=== PATIENT | female | born 1935 | race Caucasian/White ===

== ENCOUNTER 2019-01-02 13:47 | Emergency (ER) | payer MEDICARE, MEDICAID ==
[~2019-01-02] VITALS: Ht 160 cm; Wt 63.0 kg
--- OUTSIDE RECORDS SUMMARY | 2019-01-02 13:52 | XMS REPORT | Continuity of Care Document ---
Author Organization Unknown Address Unknown Allergies There is no data. Medications There is no data. Problems There is no data. Procedures There is no data. Results Test Result Range LIPID PANEL - 09/02/18 10:18 CHOLESTEROL, TOTAL 134 mg/dL <200 HDL CHOLESTEROL 49 mg/dL >50 TRIGLYCERIDES 164 mg/dL <150 LDL-CHOLESTEROL 61 mg/dL (calc) NRG CHOL/HDLC RATIO 2.7 (calc) <5.0 NON HDL CHOLESTEROL 85 mg/dL (calc) <130 MICROALBUMIN/CREATININE RATIO, URINE - 09/02/18 10:18 CREATININE, RANDOM URINE 80 mg/dL 20-275 MICROALBUMIN 1.5 mg/dL See Note: MICROALBUMIN/CREATININE RATIO, RANDOM URINE 19 mcg/mg creat <30 CMP - 09/02/18 10:18 GLUCOSE 190 mg/dL 65-99 UREA NITROGEN (BUN) 18 mg/dL 7-25 CREATININE 0.82 mg/dL 0.60-0.88 eGFR NON-AFR. CYMRAES 66 mL/min/1.73m2 > OR=60 eGFR 76 mL/min/1.73m2 > OR=60 BUN/CREATININE RATIO NOT APPLICABLE (calc) 6-22 SODIUM 136 mmol/L 135-146 POTASSIUM 3.6 mmol/L 3.5-5.3 CHLORIDE 97 mmol/L 98-110 CARBON DIOXIDE 31 mmol/L 20-32 CALCIUM 10.1 mg/dL 8.6-10.4 PROTEIN, TOTAL 7.6 g/dL 6.1-8.1 ALBUMIN 4.3 g/dL 3.6-5.1 GLOBULIN 3.3 g/dL (calc) 1.9-3.7 ALBUMIN/GLOBULIN RATIO 1.3 (calc) 1.0-2.5 BILIRUBIN, TOTAL 0.7 mg/dL 0.2-1.2 ALKALINE PHOSPHATASE 66 U/L 33-130 AST 70 U/L 10-35 ALT 76 U/L 6-29 CBC - 09/02/18 10:18 WHITE BLOOD CELL COUNT 6.6 Thousand/uL 3.8-10.8 RED BLOOD CELL COUNT 4.57 Million/uL 3.80-5.10 HEMOGLOBIN 13.9 g/dL 11.7-15.5 HEMATOCRIT 41.6 % 35.0-45.0 MCV 91.0 fL 80.0-100.0 MCH 30.4 pg 27.0-33.0 MCHC 33.4 g/dL 32.0-36.0 RDW 12.8 % 11.0-15.0 PLATELET COUNT 206 Thousand/uL 140-400 MPV 12.0 fL 7.5-12.5 ABSOLUTE NEUTROPHILS 3736 cells/uL 5306-2813 ABSOLUTE LYMPHOCYTES 2290 cells/uL 850-3900 ABSOLUTE MONOCYTES 455 cells/uL 200-950 ABSOLUTE EOSINOPHILS 99 cells/uL 15-500 ABSOLUTE BASOPHILS 20 cells/uL 0-200 NEUTROPHILS 56.6 % NRG LYMPHOCYTES 34.7 % NRG MONOCYTES 6.9 % NRG EOSINOPHILS 1.5 % NRG BASOPHILS 0.3 % NRG A1C - 09/02/18 10:18 HEMOGLOBIN A1c 8.2 % of total Hgb <5.7 LIPID PANEL - 11/21/18 08:30 CHOLESTEROL, TOTAL 131 mg/dL <200 HDL CHOLESTEROL 53 mg/dL >50 TRIGLYCERIDES 145 mg/dL <150 LDL-CHOLESTEROL 55 mg/dL (calc) NRG CHOL/HDLC RATIO 2.5 (calc) <5.0 NON HDL CHOLESTEROL 78 mg/dL (calc) <130 MICROALBUMIN/CREATININE RATIO, URINE - 11/21/18 08:30 CREATININE, RANDOM URINE 79 mg/dL 20-275 MICROALBUMIN 1.0 mg/dL See Note: MICROALBUMIN/CREATININE RATIO, RANDOM URINE 13 mcg/mg creat <30 CMP - 11/21/18 08:30 GLUCOSE 177 mg/dL 65-99 UREA NITROGEN (BUN) 24 mg/dL 7-25 CREATININE 0.90 mg/dL 0.60-0.88 eGFR NON-AFR. CYMRAES 59 mL/min/1.73m2 > OR=60 eGFR 68 mL/min/1.73m2 > OR=60 BUN/CREATININE RATIO 27 (calc) 6-22 SODIUM 136 mmol/L 135-146 POTASSIUM 3.8 mmol/L 3.5-5.3 CHLORIDE 96 mmol/L 98-110 CARBON DIOXIDE 28 mmol/L 20-32 CALCIUM 10.4 mg/dL 8.6-10.4 PROTEIN, TOTAL 8.0 g/dL 6.1-8.1 ALBUMIN 4.2 g/dL 3.6-5.1 GLOBULIN 3.8 g/dL (calc) 1.9-3.7 ALBUMIN/GLOBULIN RATIO 1.1 (calc) 1.0-2.5 BILIRUBIN, TOTAL 0.6 mg/dL 0.2-1.2 ALKALINE PHOSPHATASE 69 U/L 33-130 AST 73 U/L 10-35 ALT 82 U/L 6-29 CBC - 11/21/18 08:30 WHITE BLOOD CELL COUNT 7.3 Thousand/uL 3.8-10.8 RED BLOOD CELL COUNT 4.62 Million/uL 3.80-5.10 HEMOGLOBIN 13.9 g/dL 11.7-15.5 HEMATOCRIT 41.6 % 35.0-45.0 MCV 90.0 fL 80.0-100.0 MCH 30.1 pg 27.0-33.0 MCHC 33.4 g/dL 32.0-36.0 RDW 12.8 % 11.0-15.0 PLATELET COUNT 191 Thousand/uL 140-400 MPV 11.9 fL 7.5-12.5 ABSOLUTE NEUTROPHILS 3438 cells/uL 6386-8841 ABSOLUTE LYMPHOCYTES 3124 cells/uL 850-3900 ABSOLUTE MONOCYTES 555 cells/uL 200-950 ABSOLUTE EOSINOPHILS 139 cells/uL 15-500 ABSOLUTE BASOPHILS 44 cells/uL 0-200 NEUTROPHILS 47.1 % NRG LYMPHOCYTES 42.8 % NRG MONOCYTES 7.6 % NRG EOSINOPHILS 1.9 % NRG BASOPHILS 0.6 % NRG A1C - 11/21/18 08:30 HEMOGLOBIN A1c 8.3 % of total Hgb <5.7 Encounters ACCT No. Visit Date/Time Discharge Status Pt. Type Provider Facility Loc./Unit Complaint [id number] 12/09/2018 10:15:00 12/09/2018 23:59:59 [facility] Outpatient CHARLA SAHA [facility] [id number] 11/21/2018 08:30:00 Document Registration [id number] 09/02/2018 10:00:00 Document Registration
[2019-01-02] MEDS ORDERED: CEFU250T80 PO (14:20)
--- NOTE | 2019-01-02 14:20 | ED GU-Female ---
General Chief Complaint: - Urinary Stated Complaint: URINARY PAIN Source: patient Exam Limitations: no limitations History of Present Illness Date Seen by Provider: Jan 02, 2019 Time Seen by Provider: 14:17 Allergies and Home Medications Allergies Coded Allergies: ciprofloxacin (Verified Allergy, Unknown, 01/02/19) codeine (Verified Allergy, Unknown, 01/02/19) lisinopril (Verified Allergy, Unknown, 01/02/19) sulfamethoxazole (Verified Allergy, Unknown, 01/02/19) trimethoprim (Verified Allergy, Unknown, 01/02/19) Home Medications Cefuroxime Axetil 250 Mg Tablet, 250 MG PO BID Prescribed by: KENDALL BOWER on 01/02/19 1420 Physical Exam Vital Signs Capillary Refill : Height, Weight, BMI Height: '" Weight: lbs. oz. kg; BMI Method: Progress/Results/Core Measures Suspected Sepsis SIRS Temperature: Pulse: Respiratory Rate: Blood Pressure / Mean: Results/Orders My Orders Orders - KENDALL BOWER DO Ceftriaxone For Im Use (Rocephin For Im (01/03/19 09:00) Lidocaine 1% Inj 20 Ml (Xylocaine 1% Inj (01/02/19 14:30) Vital Signs/I&O Capillary Refill : Departure Impression Primary Impression: Urinary tract infection Disposition: 01 HOME, SELF-CARE Condition: Stable Departure-Patient Inst. Decision time for Depature: 14:19 Referrals: CHARLA SAHA MD (PCP/Family) Primary Care Physician Patient Instructions: Urinary Tract Infection, Adult (DC) Scripts Cefuroxime Axetil (Cefuroxime) 250 Mg Tablet 250 MG PO BID for UTI for 10 Days, #20 TAB 0 Refills Prov: KENDALL BOWER DO 01/02/19 KENDALL BOWER DO Jan 02, 2019 14:20
[2019-01-02] MEDS ORDERED: cefTRIAXone 1,000 MG/2.86 ml vial (IM ONLY) ONE (14:22)
[2019-01-02] MEDS ORDERED: LIDOCAINE 1% INJ 20 ML 20 ML VIAL INJ ONE (14:30)
[2019-01-02 14:48] VITALS: BP 134/81
[2019-01-03] MEDS ORDERED: cefTRIAXone 1,000 MG/2.86 ml vial (IM ONLY) IM SCH (09:00)
== END 2019-01-02 15:00 | disposition home or self-care (01) ==
LOC: ER FS 13:50
DX: N39.0 Urinary tract infection, site not specified (principal); Z88.1 Allergy status to other antibiotic agents; Z88.5 Allergy status to narcotic agent; Z88.2 Allergy status to sulfonamides; Z88.8 Allergy status to other drugs, medicaments and biological substances
CPT/HCPCS: 99284

== ENCOUNTER → 2019-01-19 | Outpatient (CLI) | payer OTHER, MEDICAID ==
[~2019-01-19] MED LIST: CEFU250T80 PO
--- NOTE | 2019-01-19 17:22 | Diagnostic Imaging Report ---
INDICATION: Right anterior knee pain. Time of exam 3:16 p.m. FINDINGS: Three views of the right knee were obtained. Alignment is normal. Joint spaces are well maintained. Articular surfaces are smooth. No fracture, dislocation or effusion is seen. Vascular calcifications in the femoral popliteal system are noted. IMPRESSION: No acute bony abnormality is detected. Dictated by: Dictated on workstation # [id number]
== END ==
LOC: RAD FS 15:09
PROVIDERS: ATTEND Family Medicine
DX: M25.561 Pain in right knee (principal)
CPT/HCPCS: 73562

== ENCOUNTER 2019-01-24 16:27 | Emergency (ER) | payer MEDICARE, MEDICAID ==
[~2019-01-24] VITALS: Ht 170.2 cm; Wt 63.0 kg
--- OUTSIDE RECORDS SUMMARY | 2019-01-24 16:33 | XMS REPORT | Continuity of Care Document ---
[...] 7-25 CREATININE 0.82 mg/dL 0.60-0.88 eGFR NON-AFR. SOMALI 66 mL/min/1.73m2 > OR=60 eGFR 76 mL/min/1.73m2 [...] 12.0 fL 7.5-12.5 ABSOLUTE NEUTROPHILS 3736 cells/uL 0190-1650 ABSOLUTE LYMPHOCYTES 2290 cells/uL 850-3900 ABSOLUTE MONOCYTES [...] 7-25 CREATININE 0.90 mg/dL 0.60-0.88 eGFR NON-AFR. SOMALI 59 mL/min/1.73m2 > OR=60 eGFR 68 mL/min/1.73m2 [...] 11.9 fL 7.5-12.5 ABSOLUTE NEUTROPHILS 3438 cells/uL 6977-3625 ABSOLUTE LYMPHOCYTES 3124 cells/uL 850-3900 ABSOLUTE MONOCYTES 555 cells/uL 200-950 ABSOLUTE EOSINOPHILS 139 cells/uL 15-500 ABSOLUTE BASOPHILS 44 cells/uL 0-200 NEUTROPHILS 47.1 % NRG LYMPHOCYTES 42.8 % NRG MONOCYTES 7.6 % NRG EOSINOPHILS 1.9 % NRG BASOPHILS 0.6 % NRG A1C - 11/21/18 08:30 HEMOGLOBIN A1c 8.3 % of total Hgb <5.7 CULTURE, URINE - 01/02/19 13:50 CULTURE, URINE, ROUTINE SEE NOTE NRG Encounters ACCT No. Visit Date/Time Discharge Status Pt. Type Provider Facility Loc./Unit Complaint [id number] 01/19/2019 14:15:00 01/19/2019 23:59:59 [facility] [id number] 01/02/2019 13:10:00 Document Registration [id number] 11/21/2018 08:30:00 Document Registration [id number] 09/02/2018 10:00:00 Document Registration
[2019-01-24] MEDS ORDERED: MECLIZINE 25 MG (ANTIVERT) TAB PO ONE (17:00)
[2019-01-24] MEDS ORDERED: ONDANSETRON 4 MG/2 ML (SDV) Z0FRAN IVP ONE (17:00)
--- NOTE | 2019-01-24 17:34 | ED General ---
General Stated Complaint: BACK/LEG PAIN Source of Information: Patient, Family History of Present Illness Date Seen by Provider: Jan 24, 2019 Time Seen by Provider: 17:15 Initial Comments Patient is a 83-year-old female with history of degenerative disc disease who presents with intermittent daily low back pain rating to her right posterior leg. Pain is described as sharp rated moderate to severe is worse with palpation and ambulation and movement. No motor weakness, loss of sensation. Denies trauma. Patient has taken ibuprofen with limited relief. Patient has been evaluated for this complaint prior to today's ED visit. No urinary frequency urgency dysuria. Denies abdominal pain. Patient's not on anticoagulation therapy. Timing/Duration: 1 Week Severity: Moderate Modifying Factors: improves with Medication, improves with Movement Allergies and Home Medications Allergies Coded Allergies: ciprofloxacin (Verified Allergy, Unknown, 01/02/19) codeine (Verified Allergy, Unknown, 01/02/19) lisinopril (Verified Allergy, Unknown, 01/02/19) sulfamethoxazole (Verified Allergy, Unknown, 01/02/19) trimethoprim (Verified Allergy, Unknown, 01/02/19) Home Medications Cefuroxime Axetil 250 Mg Tablet, 250 MG PO BID Prescribed by: KENDALL BOWER on 01/02/19 1420 Patient Home Medication List Home Medication List Reviewed: Yes Review of Systems Review of Systems Constitutional: see HPI EENTM: see HPI Respiratory: see HPI Cardiovascular: see HPI Genitourinary: see HPI Musculoskeletal: back pain Psychiatric/Neurological: See HPI Hematologic/Lymphatic: See HPI Immunological/Allergic: see HPI Past Jzbveti-Ebzyuh-Pstyoa Hx Patient Social History 2nd Hand Smoke Exposure: No Recent Hopitalizations: No Seasonal Allergies Seasonal Allergies: No Past Medical History Surgeries: Yes Hysterectomy Respiratory: No Cardiac: Yes Hypertension Neurological: No Genitourinary: Yes Bladder Infection Gastrointestinal: No Musculoskeletal: No Endocrine: Yes Diabetes, Non-Insulin dep HEENT: No Cancer: No Psychosocial: No Integumentary: No Physical Exam Vital Signs Capillary Refill : Height, Weight, BMI Height: 5'3.00" Weight: 139lbs. oz. 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 No motor weakness, loss of sensation, incontinence. Pain addressed in the ED. Will obtain a UA, lumbar series x-ray. Anticipate discharge home with supportive care negative. Care to be endorsed to oncoming ERP at 18:00 labs and disposition pending. Impression Primary Impression: Acute right lumbar radiculopathy Condition: Stable Departure-Patient Inst. Referrals: CHARLA SAHA MD (PCP/Family) Primary Care Physician SAL VIGIL DO Jan 24, 2019 17:34
[2019-01-24] MEDS ORDERED: TRAM50TA2 PO (17:45)
--- NOTE | 2019-01-24 17:53 | NUR ---
Ultram 100 mg p.o. given for c/o pain. Long explanation to patient and the family that Dr ordered these as she is here for pain. Pt reports seeing her Dr for pain earlier in week. Pt's family state, "What kind are they?" Explained Tramadol the prescription pain pill. Family tell patient they are the same that Dr Estrada prescribed that she is refusing to take after reading the side effects sheet. Offered patient her choice: 1)getting a few tests done they may not answer the source of pain/ 2)take pain medication as offered by a second provider this week to resolve pain to make her more comfortable. Pt chose to take pain medication.
--- NOTE | 2019-01-24 19:00 | NUR ---
Report to Abbey BARNES.
--- NOTE | 2019-01-24 19:47 | Diagnostic Imaging Report ---
Examination: Lumbar spine, 3 views Indication: Low back pain. Comparison: None available. Findings: No fracture or acute osseous abnormality. Spinal alignment is maintained. There is intervertebral disc space narrowing at the L1-2 and L5-S1 levels. There is multilevel degenerative change consisting of marginal anterior osteophyte formation and facet arthropathy. Mild degenerative changes noted in the sacroiliac joints. Aortic and vascular calcifications are noted. Scattered gas and stool throughout the colon. Impression: Degenerative change of the lumbar spine, without evidence of acute fracture or subluxation. Dictated by: Dictated on workstation # [id number]
[2019-01-24 20:05] VITALS: BP 185/76
== END 2019-01-24 19:56 | disposition home or self-care (01) ==
LOC: EDUNIT# 16:27 → ER FS 16:28
DX: M51.16 Intervertebral disc disorders with radiculopathy, lumbar region (principal); I10 Essential (primary) hypertension; E11.9 Type 2 diabetes mellitus without complications; Z88.1 Allergy status to other antibiotic agents; Z88.5 Allergy status to narcotic agent; Z88.2 Allergy status to sulfonamides; Z90.710 Acquired absence of both cervix and uterus
CPT/HCPCS: 72100; 93005

== ENCOUNTER → 2019-02-17 | Outpatient (CLI) | payer MEDICARE, MEDICAID ==
[~2019-02-17] MED LIST changes: +TRAM50TA2 PO
--- NOTE | 2019-02-17 12:40 | Diagnostic Imaging Report ---
PROCEDURE: MRI lumbar spine. TECHNIQUE: Multiplanar, multisequence MRI of the lumbar spine was performed without contrast. INDICATION: Spondylosis. COMPARISON: Study correlated with plain films from 01/24/2019. No previous MRI. FINDINGS: Lumbar vertebral body heights, statures, and alignment are stable and anatomic. The marrow signal intensity is unremarkable. The lower thoracic cord, the conus, and the nerves of the cauda equina appear unremarkable. There is no paravertebral mass, hemorrhage, or fluid collection. No bone contusion or marrow edema. The ligamentous structures are intact. T12-L1: Osteophyte disc material is directed anteriorly at this level and results in no stenosis. L1-L2: Osteophyte disc material is anteriorly directed at this level and results in no stenosis. L2-L3: Left paramedian disc protrusion indents the ventral thecal sac with only mild canal stenosis. The neural foramina are widely patent. L3-L4: Focal left paramedian disc protrusion measures about 7 mm transverse at its base and extends about 4-5 mm posterior to the endplate margin and elevates the posterior longitudinal ligament with a cephalocaudal height of 2 cm and results in a moderate severity of canal stenosis. The neural foramina bilaterally are patent. L4-L5: Slightly eccentric to the right is a broad-based disc protrusion indenting the ventral thecal sac with [id number] canal stenosis as well as substantial stenosis of the right L5 lateral recess. Disc material does result in a mild degree of biforaminal stenosis. This disc extends maximal 7 mm posterior to the endplate margin. L5-S1: There is disc desiccation and loss of disc stature, endplate osteophytes, and moderate right and mild left neural foraminal stenosis with only mild narrowing of the thecal sac. IMPRESSION: There are multilevel focal disc protrusions and resultant canal, foraminal, and recess stenoses of varying severities listed level by level above. Normal alignment. No acute or suspicious bony pathology. Dictated by: Dictated on workstation # [id number]
== END ==
LOC: RAD 10:07
PROVIDERS: ATTEND Family Medicine
DX: M51.26 Other intervertebral disc displacement, lumbar region (principal); M48.07 Spinal stenosis, lumbosacral region; M47.816 Spondylosis without myelopathy or radiculopathy, lumbar region
CPT/HCPCS: 72148

== ENCOUNTER 2019-03-10 15:00 | Inpatient (IN) | payer MEDICARE, MEDICAID | END 2019-03-13 17:15 | disposition other institution (70) | LOC: ER 15:00 → ICU 16:33 | DX: I48.91 Unspecified atrial fibrillation (principal); E87.1 Hypo-osmolality and hyponatremia; I44.7 Left bundle-branch block, unspecified; I10 Essential (primary) hypertension; E11.9 Type 2 diabetes mellitus without complications; E03.9 Hypothyroidism, unspecified; R00.1 Bradycardia, unspecified; M51.16 Intervertebral disc disorders with radiculopathy, lumbar region; R91.1 Solitary pulmonary nodule; D72.819 Decreased white blood cell count, unspecified; E87.6 Hypokalemia; E83.42 Hypomagnesemia; R79.89 Other specified abnormal findings of blood chemistry ==

== ENCOUNTER 2019-03-20 01:51 | Inpatient (IN) | payer MEDICARE, MEDICAID ==
[~2019-03-20] VITALS: Ht 172.7 cm; Wt 61.2 kg
[2019-03-20] VITALS (50 sets, daily range): BP systolic 110–144; BP diastolic 62–99
[~2019-03-20 01:51] MED LIST changes: +APIX5TAB PO; +CNC1KV IM; +DILT120C94 PO; +GABA-488 PO; +GLIM4TAB PO; +IBUP-30 PO; +MELO7.5T46 PO; +METF-399 PO; +METO1TAB11 PO
[2019-03-20] MEDS ORDERED: DILTIAZEM 25 MG/5 ML INJ (CARDIZEM) VIAL IVP STA (02:04)
--- NOTE | 2019-03-20 02:16 | ED Cardiac General ---
History of Present Illness General Stated Complaint: SYNCOPAL EPISODE Source: patient History of Present Illness Date Seen by Provider: Mar 20, 2019 Time Seen by Provider: 01:51 Initial Comments 83-year-old female presenting with complaints of waking up this morning feeling like she was going to pass out. She feels like she is having heart palpitations and send her heart racing. She was discharged from [facility] on 13 March with similar symptoms. She was diagnosed then with atrial fibrillation. She still had atrial fibrillation when she was discharged but her heart rate was better controlled. She is taking diltiazem 120 mg a day as well as Eliquis. She was denying any chest pain or nausea/vomiting. She has no swelling or edema. She denies any pain with urination. She is not coughing. Allergies and Home Medications Allergies Coded Allergies: ciprofloxacin (Verified Allergy, Unknown, 01/02/19) codeine (Verified Allergy, Unknown, 01/02/19) lisinopril (Verified Allergy, Unknown, 01/02/19) sulfamethoxazole (Verified Allergy, Unknown, 01/02/19) trimethoprim (Verified Allergy, Unknown, 01/02/19) Home Medications Apixaban 5 Mg Tablet, 5 MG PO BID Prescribed by: ANTONIO QUINTEROS on 03/13/19 1349 Cyanocobalamin 1,000 Mcg/Ml Inj, 1,000 MCG IM MONTHLY, (Reported) Diltiazem HCl 120 Mg Cap.er.24h, 120 MG PO DAILY Prescribed by: ANTONIO QUINTEROS on 03/13/19 1349 Glimepiride 4 Mg Tablet, 2 MG PO DAILY PRN for BS>160, (Reported) Ibuprofen 200 Mg Tablet, 100 MG PO Q6H PRN for PAIN-MILD, (Reported) Metformin HCl 1,000 Mg Tablet, 1,000 MG PO BID, (Reported) Patient Home Medication List Home Medication List Reviewed: Yes Review of Systems Review of Systems Constitutional: No chills, No fever EENTM: No Blurred Vision, No Eye Pain Respiratory: Denies Cough, Denies Shortness of Air, Denies SOA at Rest Cardiovascular: Denies Chest Pain; Irregular Heart Rate, Lightheadedness, Palpitations Gastrointestinal: Denies Abdominal Pain, Denies Nausea, Denies Vomiting Genitourinary: Denies Burning, Denies Pain Musculoskeletal: no symptoms reported Skin: no symptoms reported Psychiatric/Neurological: Denies Headache, Denies Numbness, Denies Paresthesia, Denies Tingling Hematologic/Lymphatic: Easy Bleeding (on Eliquis), Easy Bruising (on Eliquis) Past Udasxro-Hrzwzj-Xrvcba Hx Past Med/Social Hx: Reviewed Nursing Past Med/Soc Hx Patient Social History 2nd Hand Smoke Exposure: No Recent Foreign Travel: No Contact w/Someone Who Travel: No Recent Hopitalizations: No Immunizations Up To Date Date of Pneumonia Vaccine: Mar 08, 2017 Seasonal Allergies Seasonal Allergies: No Past Medical History Surgeries: Yes Hysterectomy Respiratory: No Cardiac: Yes Hypertension Neurological: No Genitourinary: Yes Bladder Infection Gastrointestinal: No Musculoskeletal: No Endocrine: Yes Diabetes, Non-Insulin dep HEENT: No Cancer: No Psychosocial: No Integumentary: No Blood Disorders: No Family Medical History No Pertinent Family Hx Physical Exam Vital Signs Vital Signs - First Documented Capillary Refill : Height, Weight, BMI Height: 5'6.00" Weight: 145lbs. 0.8oz. 65.814178fg; 24.1 BMI Method:Stated General Appearance: Thin HEENT: PERRL/EOMI, Pharynx Normal Neck: Non Tender, Supple Respiratory: Chest Non Tender, Lungs Clear, Normal Breath Sounds Cardiovascular: Normal Peripheral Pulses, Irregularly Irregular, Tachycardia Gastrointestinal: No Pulsatile Mass, Non Tender, Soft Extremity: Normal Capillary Refill, Normal Range of Motion, Non Tender, No Calf Tenderness, No Pedal Edema Neurologic/Psychiatric: Alert, Oriented x3 Skin: Normal Color, Warm/Dry Progress/Results/Core Measures Results/Orders Lab Results Laboratory Tests Test 03/20/19 02:09 03/20/19 02:15 Range/Units Glucometer 226 H 70-110 MG/DL White Blood Count 8.3 4.3-11.0 10^3/uL Red Blood Count 4.70 4.35-5.85 10^6/uL Hemoglobin 14.0 11.5-16.0 G/DL Hematocrit 41 35-52 % Mean Corpuscular Volume 88 80-99 FL Mean Corpuscular Hemoglobin 30 25-34 PG Mean Corpuscular Hemoglobin Concent 34 32-36 G/DL Red Cell Distribution Width 14.4 10.0-14.5 % Platelet Count 225 130-400 10^3/uL Mean Platelet Volume 10.6 H 7.4-10.4 FL Neutrophils (%) (Auto) 61 42-75 % Lymphocytes (%) (Auto) 26 12-44 % Monocytes (%) (Auto) 10 0-12 % Eosinophils (%) (Auto) 2 0-10 % Basophils (%) (Auto) 1 0-10 % Neutrophils # (Auto) 5.1 1.8-7.8 X 10^3 Lymphocytes # (Auto) 2.2 1.0-4.0 X 10^3 Monocytes # (Auto) 0.8 0.0-1.0 X 10^3 Eosinophils # (Auto) 0.1 0.0-0.3 10^3/uL Basophils # (Auto) 0.0 0.0-0.1 10^3/uL Prothrombin Time 15.5 H 12.2-14.7 SEC INR Comment 1.2 0.8-1.4 Activated Partial Thromboplast Time 27 24-35 SEC Sodium Level 134 L 135-145 MMOL/L Potassium Level 4.3 3.6-5.0 MMOL/L Chloride Level 94 L 98-107 MMOL/L Carbon Dioxide Level 22 21-32 MMOL/L Anion Gap 18 H 5-14 MMOL/L Blood Urea Nitrogen 17 7-18 MG/DL Creatinine 0.68 0.60-1.30 MG/DL Estimat Glomerular Filtration Rate > 60 BUN/Creatinine Ratio 25 Glucose Level 239 H 70-105 MG/DL Calcium Level 9.4 8.5-10.1 MG/DL Corrected Calcium 9.6 8.5-10.1 MG/DL Magnesium Level 1.7 1.6-2.4 MG/DL Total Bilirubin 0.5 0.1-1.0 MG/DL Aspartate Amino Transf (AST/SGOT) 37 H 5-34 U/L Alanine Aminotransferase (ALT/SGPT) 39 0-55 U/L Alkaline Phosphatase 73 40-136 U/L Troponin I < 0.30 <0.30 NG/ML Pro-B-Type Natriuretic Peptide 1972.0 H <75.0 PG/ML Total Protein 7.5 6.4-8.2 GM/DL Albumin 3.7 3.2-4.5 GM/DL My Orders Orders - AMBER SELLERS MD Cbc With Automated Diff (03/20/19 02:02) Magnesium (03/20/19 02:02) Chest 1 View Ap/Pa Only (03/20/19 02:02) Ekg Tracing (03/20/19 02:02) Comprehensive Metabolic Panel (03/20/19 02:02) Protime With Inr (03/20/19 02:02) Partial Thromboplastin Time (03/20/19 02:02) O2 (03/20/19 02:02) Monitor-Rhythm Ecg Trace Only (03/20/19 02:02) Ed Iv/Invasive Line Start (03/20/19 02:02) Troponin I (03/20/19 02:02) Probnp Fs (03/20/19 02:02) Ua Culture If Indicated (03/20/19 02:02) Accucheck Stat ONCE (03/20/19 02:02) Diltiazem Injection (Cardizem Injection) (03/20/19 02:04) Ns (Ivpb) (Sodium C... W/Diltiazem Iv Fo (03/20/19 02:30) Diltiazem Iv For Drip (Cardizem Iv For D (03/20/19 02:25) Ns (Ivpb) (Sodium Chloride 0.9% Ivpb Bag (03/20/19 02:25) Vital Signs/I&O 03/20/19 03/20/19 03/20/19 02:31 02:31 02:41 Temp 36.8 Pulse 141 116 Resp 14 28 B/P (MAP) 141/66 (91) 126/73 Pulse Ox 96 95 94 O2 Delivery Room Air Room Air Progress Progress Note #1: Progress Note check labs and ECG with CXR. Give Diltiazem 10 mg bolus to try and slow her heart rate. ECG shows atrial fibrillation with rate 123. She has LVH with repolarization changes as well. Progress Note #2: Time: 02:31 Progress Note Her accucheck was ok at 226. Her heart rate did temporarily drop down to 104-110 range with the bolus dose of 10 mg Diltiazem but then she went back up into the 110s-120s so will start a diltiazem drip at 5 mg/hr. Waiting on labs and CXR still. Progress Note #3: Time: 03:11 Progress Note labs are stable other than elevated Pro BNP. She has negative Troponin. On the Diltiazem drip her rate is decreased and better controlled but still at times goes up over 100. With her still feeling weak and not rate controlled will call Dr. Emanuel, the automation qtp tester doctor for [facility] about re-admit for her atrial fibrillation with RVR. From review of her records of the admit last week she was not tolerating being on additional medicine to help with her heart rate for rate control without dropping her pressure too low. Progress Note #4: Progress Note UA shows signs of UTI so will treat with Rocephin 1 gm IV here and if she is only in the hospital for the one day then when she is discharged she could get a script to continue oral antibiotic. Initial ECG Impression Date: Mar 20, 2019 Initial ECG Impression Time: 01:54 Initial ECG Rate: 123 Initial ECG Rhythm: A Fib/Flutter Initial ECG Comparisson: Unchanged Comment Atrial fibrillation with a heart rate 123 bpm. LVH with repolarization changes. QT interval 311 ms with a QT corrected interval 445 ms. Appears similar to prior tracings. Diagnostic Imaging Diagonstic Imaging: Xray Plain Films/CT/US/NM/MRI: chest Reviewed: Reviewed by Me Departure Communication (Admissions) Time/Spoke to Admitting Phy: 03:[address] Emanuel about the patient as the patient follows with Dr. Saha for [facility]. She accepted the patient for admission with the diltiazem drip for rate control of the atrial fibrillation with rapid ventricular response. She did request to have Dr. Garcia consult at again in the morning since he had been following the patient last week during the admission. Impression Primary Impression: Atrial fibrillation with rapid ventricular response Additional Impression: Cystitis without hematuria Disposition: ADMITTED INPATIENT Condition: Stable Admissions Decision to Admit Reason: Admit from ER (General) Decision to Admit/Date: Mar 20, 2019 Time/Decision to Admit Time: 03:19 Departure-Patient Inst. Referrals: CHARLA SAHA MD (PCP/Family) Primary Care Physician AMBER SELLERS MD Mar 20, 2019 02:16
[2019-03-20 02:25] LABS: HEMATOCRIT 41 % (35-52); MEAN CORPUSCULAR HEMOGLOBIN 30 PG (25-34); MEAN CORPUSCULAR VOLUME 88 FL (80-99); WHITE BLOOD COUNT 8.3 10^3/uL (4.3-11.0)
[2019-03-20] MEDS ORDERED: NS (IVPB) 100 ML ONE (02:25)
[2019-03-20] MEDS ORDERED: DILTIAZEM 125 MG/25 ML IV (CARDIZEM) IV ONE (02:25)
[2019-03-20 02:26] LABS: BASOPHILS % (AUTO) 1 % (0-10); EOSINOPHILS # (AUTO) 0.1 10^3/uL (0.0-0.3); EOSINOPHILS % (AUTO) 2 % (0-10); LYMPHOCYTES # (AUTO) 2.2 X 10^3 (1.0-4.0); LYMPHOCYTES % (AUTO) 26 % (12-44); MEAN CORPUSCULAR HGB CONC 34 G/DL (32-36); MEAN PLATELET VOLUME 10.6 FL (7.4-10.4); MONOCYTES # (AUTO) 0.8 X 10^3 (0.0-1.0); MONOCYTES % (AUTO) 10 % (0-12); NEUTROPHILS # (AUTO) 5.1 X 10^3 (1.8-7.8); NEUTROPHILS % (AUTO) 61 % (42-75); PLATELET COUNT 225 10^3/uL (130-400); RED CELL DISTRIBUTION WIDTH 14.4 % (10.0-14.5)
[2019-03-20] MEDS ORDERED: DILTIAZEM IV FOR DRIP 125 MG in NS (IVPB) 100 ML IV SCH (02:30)
[2019-03-20 02:37] LABS: INR 1.2 (0.8-1.4); PROTHROMBIN TIME PATIENT 15.5 SEC (12.2-14.7)
[2019-03-20 02:45] LABS: CARBON DIOXIDE 22 MMOL/L (21-32); CHLORIDE 94 MMOL/L (98-107); POTASSIUM 4.3 MMOL/L (3.6-5.0); SODIUM 134 MMOL/L (135-145)
[2019-03-20 02:46] LABS: BILIRUBIN,TOTAL 0.5 MG/DL (0.1-1.0); CALCIUM 9.4 MG/DL (8.5-10.1); GLUCOSE 239 MG/DL (70-105); MAGNESIUM 1.7 MG/DL (1.6-2.4); TOTAL PROTEIN 7.5 GM/DL (6.4-8.2)
[2019-03-20 02:47] LABS: ALANINE AMINOTRANSFERASE 39 U/L (0-55); ALBUMIN 3.7 GM/DL (3.2-4.5); ALKALINE PHOSPHATASE 73 U/L (40-136); BUN/CREATININE RATIO 25; CREATININE SERUM 0.68 MG/DL (0.60-1.30); GFR ESTIMATED > 60
--- NOTE | 2019-03-20 03:15 | NUR ---
Patient is resting comfortably at this time.
--- NOTE | 2019-03-20 03:55 | NUR ---
Patient assisted to the bedside commode via two person assistance.
[2019-03-20 04:13] LABS: CLARITY,URINE SLIGHTLY CLOUDY; COLOR,URINE YELOW; GLUCOSE, URINE (UA) 3+ (NEGATIVE); PROTEIN,URINE TRACE (NEGATIVE)
[2019-03-20 04:14] LABS: BACTERIA,URINE LARGE /HPF; BILIRUBIN,URINE NEGATIVE (NEGATIVE); KETONES,URINE TRACE (NEGATIVE); LEUKOCYTE ESTERASE ,URINE 1+ (NEGATIVE); NITRITE,URINE NEGATIVE (NEGATIVE); RENAL EPITHELIAL CELLS,URINE 0-2 /HPF; WBC,URINE 50-100 /HPF
[2019-03-20] MEDS ORDERED: cefTRIAXone FOR IV USE 1,000 MG in WATER (STERILE) FOR INJECTION 10 ML IV STA (04:22)
--- NOTE | 2019-03-20 04:45 | NUR ---
Report called to Tesfaye BARNES at [facility].
--- NOTE | 2019-03-20 05:52 | Diagnostic Imaging Report ---
INDICATION: Shortness of air. COMPARISON: 03/13/2019 FINDINGS: Single frontal radiographic view of the chest was obtained and demonstrates persistent borderline enlargement cardiac silhouette. Pulmonary vasculature is within normal limits. There is hazy opacification of both lung bases including the hemidiaphragms. Note is also made of suggestion of pulmonary nodular opacity within the right perihilar region measuring approximately 1 cm in diameter. There is no evidence of pneumothorax, although the apices are partially obscured by the patient's chin. IMPRESSION: 1. Hazy opacification of both lung bases suspicious for underlying effusions. Correlation with lateral view may be of benefit. 2. Findings suspicious for pulmonary nodule within the right perihilar region. Correlation with CT is advised. Dictated by: Dictated on workstation # [id number]
[2019-03-20] MEDS ORDERED: CATHETER FLUSH 10 ML SYR IV PRN (06:45)
[2019-03-20] MEDS ORDERED: ONDANSETRON 4 MG/2 ML (SDV) Z0FRAN IV PRN (06:45)
[2019-03-20] MEDS ORDERED: DILTIAZEM 125 MG/NS 100 ML IV SCH ×2 (06:45)
[2019-03-20] MEDS ORDERED: DILT-27 PO (09:09)
[2019-03-20] MEDS ORDERED: APIX5TAB PO (09:09)
--- NOTE | 2019-03-20 09:13 | NUR ---
SPOKE WITH THE PATENT AND FAMILY ABOUT MEDICATIONS. THEY REPORT SHE HAS BEEN FOLLOWING HER DISCHARGE INSTRUCTIONS FROM HER LAST RECENT VISIT EXCEPT AFTER READY THE ELIQUIS PAPERWORK THEY HAVE DISCONTINUED HER PRN ADVIL.
--- NOTE | 2019-03-20 10:06 | NUR ---
Pt c/o feeling "odd". States she is not dizzy just feels "odd". Vitals are stable. JIFM=276. Pt tells me that feeling resolved when she turned her head to the side. Dr. Emanuel in the room shortly after with no new orders received.
[2019-03-20] MEDS ORDERED: DILTIAZEM 120 MG (CARDIZEM CD) CAP PO ONE (11:43)
[2019-03-20] MEDS: DILTIAZEM 120 MG (CARDIZEM CD) CAP PO SCH ×2 (12:28→20:45)
--- NOTE | 2019-03-20 12:32 | History & Physical ---
STEVE RIVERO,MED STUDENT 03/20/19 1232: HPI History of Present Illness: 83 yo female patient presented to the emergency department for weakness and feeling like she was going to pass out. She states it began around 1 am and it awoke her from sleep. She woke up her daughter and told her she felt as if she was going to pass out. She was recently hospitalized and released on 03/13 for Afib with RVR that was discovered following a spinal epidural. She was discharged on diltiazem and eliquis which she states she has been taking regularly. She states she is unable to tell she is in afib or tachycardic and has no palpitations, chest pain, or shortness of breath. She currently is scheduled with cariology for an outpatient cardioversion at the end of this month. Source: patient, family (daughter) Exam Limitations: no limitations Date seen by provider: Mar 20, 2019 Time Seen by Provider: 09:30 Attending Physician Deborah Seals MD PCP Charla Saha MD Consult Date of Admission Mar 20, 2019 at 03:19 Home Medications Home Medications Reviewed patient Home Medication Reconciliation performed by pharmacy medication reconciliations industrial maintenance technician and/or nursing. Patients Allergies have been reviewed. Allergies Coded Allergies: ciprofloxacin (Verified Allergy, Unknown, 01/02/19) codeine (Verified Allergy, Unknown, 01/02/19) lisinopril (Verified Allergy, Unknown, 01/02/19) sulfamethoxazole (Verified Allergy, Unknown, 01/02/19) trimethoprim (Verified Allergy, Unknown, 01/02/19) CHE-Ziwzsk-Tbwobp Hx Patient Social History Living Status: lives at home with daughter Alcohol Use: Denies Use Recreational Drug Use: No Smoking Status: Unknown if Ever Smoked 2nd Hand Smoke Exposure: No Recent Foreign Travel: No Contact w/other who traveled: No Recent Hopitalizations: No Recent Infectious Disease Expo: No Immunizations Up To Date Date of Pneumonia Vaccine: Mar 08, 2017 Past Medical History PMHx: HTN DMII AFib SurgHx: Hysterectomy Family Medical History Significant Family History: No Pertinent Family Hx Review of Systems ([facility]) Constitutional: No chills; dizziness; No fever, No malaise; weakness Respiratory: cough; No short of breath Cardiovascular: No chest pain, No palpitations, No syncope Gastrointestinal: No abdominal pain, No constipation, No diarrhea, No nausea, No vomiting Musculoskeletal: back pain (improved since epidural) Skin: No rash Reviewed Test Results Reviewed Test Results Lab Laboratory Tests 03/20/19 02:09: Glucometer 226H 03/20/19 02:15: White Blood Count 8.3, Red Blood Count 4.70, Hemoglobin 14.0, Hematocrit 41, Mean Corpuscular Volume 88, Mean Corpuscular Hemoglobin 30, Mean Corpuscular Hemoglobin Concent 34, Red Cell Distribution Width 14.4, Platelet Count 225, Mean Platelet Volume 10.6H, Neutrophils (%) (Auto) 61, Lymphocytes (%) (Auto) 26, Monocytes (%) (Auto) 10, Eosinophils (%) (Auto) 2, Basophils (%) (Auto) 1, Neutrophils # (Auto) 5.1, Lymphocytes # (Auto) 2.2, Monocytes # (Auto) 0.8, Eosinophils # (Auto) 0.1, Basophils # (Auto) 0.0, Prothrombin Time 15.5H, INR Comment 1.2, Activated Partial Thromboplast Time 27, Sodium Level 134L, Potassium Level 4.3, Chloride Level 94L, Carbon Dioxide Level 22, Anion Gap 18H, Blood Urea Nitrogen 17, Creatinine 0.68, Estimat Glomerular Filtration Rate > 60, BUN/Creatinine Ratio 25, Glucose Level 239H, Calcium Level 9.4, Corrected Calcium 9.6, Magnesium Level 1.7, Total Bilirubin 0.5, Aspartate Amino Transf (AST/SGOT) 37H, Alanine Aminotransferase (ALT/SGPT) 39, Alkaline Phosphatase 73, Troponin I < 0.30, Pro-B-Type Natriuretic Peptide 1972.0H, Total Protein 7.5, Albumin 3.7 03/20/19 03:57: Urine Color YELOW, Urine Clarity SLIGHTLY CLOUDY, Urine pH 6.0, Urine Specific [place] 1.025H, Urine Protein TRACE, Urine Glucose (UA) 3+H, Urine Ketones TRACE H, Urine Nitrite NEGATIVE, Urine Bilirubin NEGATIVE, Urine Urobilinogen 2.0, Urine Leukocyte Esterase 1+H, Urine RBC (Auto) TRACE-L, Urine RBC NONE, Urine WBC 50-100H, Urine Squamous Epithelial Cells 10-25H, Urine Renal Epithelial Cells 0-2, Urine Crystals NONE, Urine Bacteria LARGEH, Urine Casts NONE, Urine Mucus NEGATIVE, Urine Culture Indicated YES 03/20/19 05:55: Glucometer 187H 03/20/19 09:10: Troponin I < 0.028, B-Type Natriuretic Peptide 364.9H 03/20/19 10:10: Glucometer 186H Radiology CXR: 1. Hazy opacification of both lung bases suspicious for underlying effusions. Correlation with lateral view may be of benefit. 2. Findings suspicious for pulmonary nodule within the right perihilar region. Correlation with CT is advised. Physical Exam-([facility]) Physical Exam Vital Signs VS - Last 72 Hours, by Label 03/20/19 03/20/19 03/20/19 03/20/19 02:31 02:31 02:41 05:06 Temp 36.8 Pulse 141 116 110 Resp 14 28 14 B/P (MAP) 141/66 (91) 126/73 115/78 Pulse Ox 96 95 94 98 O2 Delivery Room Air Room Air Room Air 03/20/19 03/20/19 03/20/19 03/20/19 05:55 05:55 06:00 06:15 Temp 36.8 Pulse 116 104 96 93 Resp 24 29 26 B/P (MAP) 135/96 (109) 131/83 (99) 128/65 (86) Pulse Ox 94 96 94 O2 Delivery Room Air Room Air Room Air 03/20/19 03/20/19 03/20/19 03/20/19 06:30 06:30 06:53 07:00 Pulse 95 84 Resp 29 23 B/P (MAP) 134/76 (95) 128/82 118/75 (89) Pulse Ox 94 93 O2 Delivery Room Air Room Air Room Air 03/20/19 03/20/19 03/20/19 03/20/19 07:00 07:15 07:30 07:45 Pulse 82 81 86 75 Resp 25 25 32 B/P (MAP) 120/78 (92) 124/79 (94) 124/74 (91) Pulse Ox 96 95 92 O2 Delivery Room Air Room Air Room Air 03/20/19 03/20/19 03/20/19 03/20/19 08:00 08:00 08:00 08:15 Temp 37.4 Pulse 90 80 Resp 38 30 B/P (MAP) 134/64 (87) 110/72 (85) Pulse Ox 92 94 92 O2 Delivery Room Air Room Air Room Air 03/20/19 03/20/19 03/20/19 03/20/19 08:30 08:45 09:00 09:15 Pulse 77 81 83 80 Resp 25 26 26 26 B/P (MAP) 123/69 (87) 116/73 (87) 118/65 (82) 126/68 (87) Pulse Ox 92 94 94 92 O2 Delivery Room Air Room Air Room Air Room Air 03/20/19 03/20/19 03/20/19 03/20/19 09:30 09:45 10:00 12:00 Temp 36.7 Pulse 74 80 68 Resp 24 25 24 B/P (MAP) 128/84 (99) 128/64 (85) 116/69 (85) Pulse Ox 94 92 92 O2 Delivery Room Air Room Air Room Air Capillary Refill : Less Than 3 Seconds General Appearance: WD/WN, no apparent distress, thin HEENT: PERRL/EOMI Respiratory: chest non-tender, lungs clear, normal breath sounds, no respiratory distress Cardiovascular: no murmur, tachycardia, irregularly irregular Gastrointestinal: normal bowel sounds, non tender, soft; No distended, No guarding, No rebound Extremities: no pedal edema Neurologic/Psychiatric: alert, normal mood/affect, oriented x 3 Skin: normal color Assessment/Plan Assessment/Plan Admission Dx Atrial fibrillation with rapid ventricular response Assessment & Plan Cardiology consulted. Will increase diltiazem to 120mg BID. Continue Accuchecks. Clinical Quality Measures DVT/VTE Risk/Contraindication: Risk Factor Score Per Nursin RFS Level Per Nursing on Admit: 4+=Very High Copy Copies To 1: CHARLA SAHA MD, HOLLY R MD 03/20/19 1607: HPI History of Present Illness: Agree with above HPI and reviewed with patient Home Medications Allergies Coded Allergies: ciprofloxacin (Verified Allergy, Unknown, 01/02/19) codeine (Verified Allergy, Unknown, 01/02/19) lisinopril (Verified Allergy, Unknown, 01/02/19) sulfamethoxazole (Verified Allergy, Unknown, 01/02/19) trimethoprim (Verified Allergy, Unknown, 01/02/19) Review of Systems ([facility]C) Constitutional: No chills; dizziness; No fever; weakness EENTM: no symptoms reported; No blurred vision, No double vision Respiratory: cough; No short of breath Cardiovascular: no symptoms reported; No chest pain, No palpitations Gastrointestinal: no symptoms reported; No abdominal pain, No constipation, No diarrhea, No nausea, No vomiting Genitourinary: no symptoms reported; No dysuria, No frequency, No hematuria Musculoskeletal: back pain (improved since epidural) Skin: no symptoms reported; No lesions, No rash Psychiatric/Neurological: Weakness Physical Exam-([facility]) Physical Exam General Appearance: WD/WN, no apparent distress, thin HEENT: PERRL/EOMI Neck: non-tender, full range of motion, supple, normal inspection Respiratory: chest non-tender, lungs clear, normal breath sounds, no respiratory distress Cardiovascular: no murmur, irregularly irregular Gastrointestinal: normal bowel sounds, non tender, soft Extremities: no pedal edema, no calf tenderness, normal capillary refill Neurologic/Psychiatric: floatman II-XII nml as tested, no motor/sensory deficits, alert, normal mood/affect Skin: normal color, warm/dry Lymphatic: no adenopathy Assessment/Plan Assessment/Plan Admission Status: Observation (1) Atrial fibrillation with rapid ventricular response Status: Acute Assessment & Plan: - Cardiology consulted and managing, Continue Eliquis (2) Diabetes Status: Chronic Assessment & Plan: - Holding metformin Qualifiers: (3) Hypertension Status: Acute Assessment & Plan: - Continue home meds Qualifiers: Qualified Codes: I10 - Essential (primary) hypertension Copy Copies To 1: CHARLA SAHA MD Supervisory-Addendum Brief Verification & Attestation Participated in pt care: history, physical Personally performed: exam, history Care discussed with: Medical Student Procedures: n/a I personally have seen and evaluated the patient and performed the physical exam. I agree with the documented assessment and plan. STEVE RIVERO,MED STUDENT Mar 20, 2019 12:32 DEBORAH SEALS MD Mar 20, 2019 16:07
--- NOTE | 2019-03-20 13:04 | Consultation-Cardiology ---
HPI-Cardiology Cardiology Consultation: Date of Consultation 03/20/19 Date of Admission Attending Physician Daphne Emanule MD Admitting Physician Faustino Estrada MD Consulting Physician Diya GONZALEZ MD HPI: Time Seen by a Provider: 10:00 Chief Complaint: palpitations this is a 83-year-old lady who was recently hospitalized for atrial fibrillation with rapid ventricular rate. However during telemetry an episode of bradycardia with heart rate in the 30s was also noted. She was started on Cardizem CD 120 mg daily as well as Eliquis for oral anticoagulation. We had tried to attempt transesophageal echocardiogram assisted cardioversion however while preparing for transesophageal echocardiogram the patient became significantly hypoxic requiring breathing treatment. Therefore we decided not to proceed with transesophageal echocardiogram. Since her heart rate was well-controlled she was discharged home. She presents again with feeling of palpitation and near syncope. She was found to be in atrial fibrillation in the ER. She was admitted for atrial fibrillation with rapid in particular rate. Review of Systems-Cardiology Review of Systems Constitutional: As described under HPI; No As described under HPI, No no symptoms reported, No chills, No fever, No lightheadedness Eyes: No As described under HPI, No no symptoms reported, No blindness, No blurred vision, No contact lenses, No drainage, No decreased acuity, No foreign body sensation, No pain, No vision change Ears/Nose/Throat: No As described under HPI, No no symptoms reported, No chronic hearing loss, No ear discharge, No ear pain, No nasal drainage, No ulcerations Respiratory: No no symptoms reported; As described under HPI; No As described under HPI, No cough, No orthopnea, No shortness of breath, No SOB with excertion Cardiovascular: No no symptoms reported; As described under HPI; No As described under HPI, No chest pain, No edema, No irregular heart rate, No lightheadedness; palpitations, syncope Gastrointestinal: No no symptoms reported, No As described under HPI, No abdomen distended, No abdominal pain, No blood streaked bowels, No constipation, No diarrhea, No nausea, No vomiting, No stool coloration changes Genitourinary: No As described under HPI, No burning, No dysuria, No discharge, No frequency, No flank pain, No hematuria, No urgency : Yes : No Skin: No rash, No skin related problems, No ulcerations Psychiatric/Neurological: No anxiety, No depression, No seizure, No focal weakness, No syncope Hematologic: No bleeding abnormalities TLH-Piguzj-Nrcnlq Hx Patient Social History Living Status: lives at home with daughter Alcohol Use: Denies Use Recreational Drug Use: No Smoking Status: Unknown if Ever Smoked 2nd Hand Smoke Exposure: No Recent Foreign Travel: No Recent Infectious Disease Expo: No Immunizations Up To Date Date of Pneumonia Vaccine: Mar 08, 2017 Past Medical History PMH As described under Assessment. Allergies and Home Medications Allergies Coded Allergies: ciprofloxacin (Verified Allergy, Unknown, 01/02/19) codeine (Verified Allergy, Unknown, 01/02/19) lisinopril (Verified Allergy, Unknown, 01/02/19) sulfamethoxazole (Verified Allergy, Unknown, 01/02/19) trimethoprim (Verified Allergy, Unknown, 01/02/19) Home Medications Apixaban 5 Mg Tablet, 5 MG PO BID, (Reported) Cyanocobalamin 1,000 Mcg/Ml Inj, 1,000 MCG IM MONTHLY, (Reported) Diltiazem HCl 120 Mg Cap.er.24h, 120 MG PO DAILY, (Reported) Glimepiride 4 Mg Tablet, 2 MG PO DAILY PRN for BS>160, (Reported) Metformin HCl 1,000 Mg Tablet, 1,000 MG PO BID, (Reported) Patient Home Medication List Home Medication List Reviewed: Yes Physical Exam-Cardiology Physical Exam Vital Signs/I&O 03/21/19 03/21/19 03/21/19 03/21/19 01:00 01:00 02:00 03:00 Pulse 75 90 70 72 Resp 23 22 B/P (MAP) 127/93 (104) 125/81 (96) 127/75 (92) Pulse Ox 92 92 95 O2 Delivery Room Air Room Air Room Air 03/21/19 03/21/19 03/21/19 03/21/19 04:00 04:24 05:00 06:00 Pulse 80 73 86 Resp 20 B/P (MAP) 114/75 (88) 105/61 (76) 125/84 (98) Pulse Ox 93 94 92 93 O2 Delivery Room Air Room Air Room Air Room Air 03/21/19 03/21/19 03/21/19 03/21/19 07:00 07:00 08:00 08:00 Pulse 80 82 99 Resp 22 25 B/P (MAP) 123/99 (107) 132/95 (107) Pulse Ox 91 91 O2 Delivery Room Air Room Air Room Air 03/21/19 03/21/19 03/21/19 03/21/19 09:00 10:00 11:00 12:00 Pulse 80 87 84 82 Resp 26 24 23 23 B/P (MAP) 126/79 (95) 125/83 (97) 142/85 (104) 116/70 (85) Pulse Ox 95 92 92 93 O2 Delivery Room Air Room Air Room Air Room Air 03/21/19 12:00 Temp 36.4 03/21/19 00:00 Intake Total 820 ml Output Total 200 ml Balance 620 ml Capillary Refill : Less Than 3 Seconds Constitutional: appears stated age, AAO x 3; No apparent distress; well- developed, well-nourished HEENT: PERRL; No normal ENT inspection, No TMs normal, No pharynx normal, No scleral icterus (R), No scleral icterus (L), No pale conjunctivae (R), No pale conjunctivae (L), No photophobia, No TM abnormal (R), No TM abnormal (L), No pharyngeal erythema, No tonsillar exudate, No other, No discharge, No EOMI; hearing is well preserved; No hard of hearing; oral hygience is good; No u lceration, No xanthelasmas are seen Neck: No carotid bruit; carotid pulses are 2 + bilaterally Respiratory: chest is bilaterally symmetric, lungs clear to auscultation Cardiovascular: No regular rate-rhythm; irregularly irregular; No extra beats, No parasternal heave is noted, No JVD, No edema, No bradycardia; tachycardia; No point of maximal impulse, No cardiac thrills are palpable; S1 and S2; No gallop/S3, No gallop/S4, No diastolic murmur, No systolic murmur, No friction rub, No click, No other Gastrointestinal: No tender; soft, round; No distended, No pulsatile mass, No organomegaly, No guarding, No rebound, No tenderness, No hernia, No mass; audible bowel sounds; No abnormal bowel sounds, No abdominal bruits, No spleenomegaly, No other Rectal: deferred Extremities: normal range of motion, non-tender, normal inspection; No clubbing, No cyanosis; no lower extremity edema bilateral; No significant edema Neurologic/Psychiatric: no motor/sensory deficits, alert, normal mood/affect, o riented x 3, power is 5/5 both on sides Skin: normal color; No rash, No ulcerations Data Review Labs Laboratory Tests 03/20/19 15:54: Glucometer 259H 03/20/19 20:45: Glucometer 202H 03/21/19 03:21: Sodium Level 135, Potassium Level 4.1, Chloride Level 101, Carbon Dioxide Level 25, Anion Gap 9, Blood Urea Nitrogen 13, Creatinine 0.71, Estimat Glomerular Filtration Rate > 60, BUN/Creatinine Ratio 18, Glucose Level 172H, Calcium Level 9.2, Phosphorus Level 3.6, Magnesium Level 1.6 03/21/19 03:28: White Blood Count 6.2, Red Blood Count 4.27L, Hemoglobin 12.5, Hematocrit 37, Mean Corpuscular Volume 87, Mean Corpuscular Hemoglobin 29, Mean Corpuscular Hemoglobin Concent 34, Red Cell Distribution Width 15.1H, Platelet Count 230, Mean Platelet Volume 10.5H, Neutrophils (%) (Auto) 66, Lymphocytes (%) (Auto) 22, Monocytes (%) (Auto) 10, Eosinophils (%) (Auto) 2, Basophils (%) (Auto) 0, Neutrophils # (Auto) 4.1, Lymphocytes # (Auto) 1.4, Monocytes # (Auto) 0.6, Eosinophils # (Auto) 0.1, Basophils # (Auto) 0.0 03/21/19 05:21: Glucometer 173H 03/21/19 11:14: Glucometer 176H Microbiology 03/20/19 MRSA Screen - Final, Complete MRSA not isolated 03/20/19 Urine Culture - Final, Complete 3 or more isolates ECG Impression ECG Initial ECG Impression: Atrial Fibrillation w/RVR A/P-Cardiology Assessment/Admission Diagnosis atrial fibrillation with rapid ventricular rate, Near syncope, Diabetes Plan I spoke at length to the patient and family. We will discontinue Cardizem infusion and change to Cardizem CD 120 mg by mouth twice a day. She will also continue Eliquis for oral anti-coagulation. Her heart rate is already gradually becoming well controlled. The heart rate was in the 80s when I saw the patient. Blood pressure is stable. The plan is to continue Eliquis for one month and then cardiovert the patient. The patient and family understand. Thank you for your consultation. Please call me if you have any questions. Angelita Gonzalez MD, FACP, FACC, FSCAI, FHRS, CCDS Interventional Cardiology Cardiac Electrophysiology Vascular Medicine and Endovascular Interventions Clinical Quality Measures DVT/VTE Risk/Contraindication: Risk Factor Score Per Nursin RFS Level Per Nursing on Admit: 4+=Very High Diya GONZALEZ MD Mar 20, 2019 13:04
[2019-03-20] MEDS: CATHETER FLUSH 10 ML SYR IV SCH (14:50)
[2019-03-20] MEDS: inSUlin ASPART (NovoLOG) 1 UNIT/0.01 ML (CHARGE PER UNIT) SC SCH ×2 (18:38→20:50)
[2019-03-20] MEDS: APIXABAN 5 MG (ELIQUIS) TABLET PO SCH (20:45)
[2019-03-21] VITALS (16 sets, daily range): BP systolic 105–142; BP diastolic 60–99
[2019-03-21] MEDS ORDERED: LIDOCAINE 4% (SALONPAS) PATCH ONE (00:46)
[2019-03-21] MEDS: CATHETER FLUSH 10 ML SYR IV SCH ×4 (01:09→22:30)
[2019-03-21] MEDS ORDERED: LIDOCAINE 4% (SALONPAS) PATCH TOP ONE (02:00)
[2019-03-21 03:35] LABS: BASOPHILS % (AUTO) 0 % (0-10); EOSINOPHILS # (AUTO) 0.1 10^3/uL (0.0-0.3); EOSINOPHILS % (AUTO) 2 % (0-10); HEMATOCRIT 37 % (35-52); HEMOGLOBIN 12.5 G/DL (11.5-16.0); LYMPHOCYTES # (AUTO) 1.4 X 10^3 (1.0-4.0); LYMPHOCYTES % (AUTO) 22 % (12-44); MEAN CORPUSCULAR HEMOGLOBIN 29 PG (25-34); MEAN CORPUSCULAR HGB CONC 34 G/DL (32-36); MEAN CORPUSCULAR VOLUME 87 FL (80-99); MEAN PLATELET VOLUME 10.5 FL (7.4-10.4); MONOCYTES # (AUTO) 0.6 X 10^3 (0.0-1.0); MONOCYTES % (AUTO) 10 % (0-12); NEUTROPHILS # (AUTO) 4.1 X 10^3 (1.8-7.8); NEUTROPHILS % (AUTO) 66 % (42-75); PLATELET COUNT 230 10^3/uL (130-400); RED CELL DISTRIBUTION WIDTH 15.1 % (10.0-14.5); WHITE BLOOD COUNT 6.2 10^3/uL (4.3-11.0)
[2019-03-21 03:57] LABS: BUN/CREATININE RATIO 18; CALCIUM 9.2 MG/DL (8.5-10.1); CARBON DIOXIDE 25 MMOL/L (21-32); CHLORIDE 101 MMOL/L (98-107); CREATININE SERUM 0.71 MG/DL (0.60-1.30); GFR ESTIMATED > 60; GLUCOSE 172 MG/DL (70-105); MAGNESIUM 1.6 MG/DL (1.6-2.4); PHOSPHORUS 3.6 MG/DL (2.3-4.7); POTASSIUM 4.1 MMOL/L (3.6-5.0); SODIUM 135 MMOL/L (135-145)
[2019-03-21] MEDS: inSUlin ASPART (NovoLOG) 1 UNIT/0.01 ML (CHARGE PER UNIT) SC SCH ×4 (05:29→22:24)
--- NOTE | 2019-03-21 07:59 | Diagnostic Imaging Report ---
EXAM: CHEST 1 VIEW, AP/PA ONLY INDICATION: Atrial fibrillation. COMPARISON: 03/20/2019. FINDINGS: Cardiomegaly. Normal central pulmonary vascularity. Diffuse prominence of interstitium appears chronic. Left basilar atelectasis or infiltrate. No pleural effusion or pneumothorax. The previously seen right pulmonary nodule is not reproduced today. IMPRESSION: 1. Stable cardiomegaly. 2. Stable prominence of interstitium may be chronic. Interstitial edema can have a similar appearance. 3. Atelectasis or infiltrate in the left lung base. Dictated by: Dictated on workstation # [id number]
[2019-03-21] MEDS: APIXABAN 5 MG (ELIQUIS) TABLET PO SCH ×2 (08:14→19:57)
[2019-03-21] MEDS: DILTIAZEM 120 MG (CARDIZEM CD) CAP PO SCH ×2 (08:14→19:57)
--- NOTE | 2019-03-21 10:45 | Progress Note - Hospitalist ---
Subjective HPI/CC On Admission Date Seen by Provider: Mar 21, 2019 Time Seen by Provider: 09:45 Subjective/Events-last exam Patient's heart rate is been primarily in the 90s. It does go up into the 100s when the patient becomes anxious. The daughter notes that the patient's been intermittently depressed as well. Review of Systems Neurological: Weakness Objective Exam Vital Signs Vital Signs Date Time Temp Pulse Resp B/P (MAP) Pulse Ox O2 Delivery O2 Flow Rate FiO2 03/21/19 10:00 87 24 125/83 (97) 92 Room Air 03/21/19 00:20 36.9 Capillary Refill : Less Than 3 Seconds General Appearance: Chronically ill HEENT: Other (edentulous) Neck: Limited Range of Motion Respiratory: Lungs Clear, Normal Breath Sounds, No Accessory Muscle Use, No Respiratory Distress Cardiovascular: Irregularly Irregular, Tachycardia Gastrointestinal: Soft, Tenderness (hypogastric area) Rectal: Deferred Extremity: Normal Capillary Refill, Normal Inspection, Normal Range of Motion, Non Tender Neurologic/Psychiatric: Alert, Depressed Affect, Other (hard of hearing) Skin: Normal Color Results/Procedures Lab Laboratory Tests 03/21/19 03:21 03/21/19 03:28 Patient resulted labs reviewed. Assessment/Plan Assessment and Plan Assess & Plan/Chief Complaint A. fib with RVR Type II diabetes Depression and anxiety Plan to transfer to the floor and begin Celexa as well. Possible discharge in the morning on Cardizem Clinical Quality Measures DVT/VTE Risk/Contraindication: Risk Factor Score Per Nursin RFS Level Per Nursing on Admit: 4+=Very High MACI PORRAS MD Mar 21, 2019 10:45
--- NOTE | 2019-03-21 13:08 | Cardiology Progress Note ---
Cardiology SOAP Progress Note Subjective: patient was agitated and depressed this morning. Objective: I&O/Vital Signs 03/21/19 03/21/19 03/21/19 03/21/19 02:00 03:00 04:00 04:24 Pulse 70 72 80 Resp 22 B/P (MAP) 125/81 (96) 127/75 (92) 114/75 (88) Pulse Ox 92 95 93 94 O2 Delivery Room Air Room Air Room Air Room Air 03/21/19 03/21/19 03/21/19 03/21/19 05:00 06:00 07:00 07:00 Pulse 73 86 80 82 Resp 20 22 B/P (MAP) 105/61 (76) 125/84 (98) 123/99 (107) Pulse Ox 92 93 91 O2 Delivery Room Air Room Air Room Air 03/21/19 03/21/19 03/21/19 03/21/19 08:00 08:00 09:00 10:00 Pulse 99 80 87 Resp 25 26 24 B/P (MAP) 132/95 (107) 126/79 (95) 125/83 (97) Pulse Ox 91 95 92 O2 Delivery Room Air Room Air Room Air Room Air 03/21/19 03/21/19 03/21/19 11:00 12:00 12:00 Temp 36.4 Pulse 84 82 Resp 23 23 B/P (MAP) 142/85 (104) 116/70 (85) Pulse Ox 92 93 O2 Delivery Room Air Room Air 03/21/19 00:00 Intake Total 820 ml Output Total 200 ml Balance 620 ml Weight (Pounds): 141 Weight (Ounces): 4.0 Weight (Calculated Kilograms): 64.104886 Constitutional: appears stated age, AAO x 3; No apparent distress; well- developed, well-nourished Respiratory: chest is bilaterally symmetric, lungs clear to auscultation Cardiovascular: No regular rate-rhythm; irregularly irregular; No extra beats, No parasternal heave is noted, No JVD, No edema, No bradycardia; tachycardia; No point of maximal impulse, No cardiac thrills are palpable; S1 and S2; No gallop/S3, No gallop/S4, No diastolic murmur, No systolic murmur, No friction ru b, No click, No other Gastrointestional: No tender; soft, round; No distended, No pulsatile mass, No organomegaly, No guarding, No rebound, No tenderness, No hernia, No mass; audible bowel sounds; No abnormal bowel sounds, No abdominal bruits, No spleenomegaly, No other Extremities: normal range of motion, non-tender, normal inspection; No clubbing, No cyanosis; no lower extremity edema bilateral; No significant edema Neurologic/Psychiatric: no motor/sensory deficits, alert, normal mood/affect, oriented x 3, power is 5/5 both on sides Skin: normal color; No rash, No ulcerations Results/Procedures: Labs Laboratory Tests 03/20/19 15:54: Glucometer 259H 03/20/19 20:45: Glucometer 202H 03/21/19 03:21: Sodium Level 135, Potassium Level 4.1, Chloride Level 101, Carbon Dioxide Level 25, Anion Gap 9, Blood Urea Nitrogen 13, Creatinine 0.71, Estimat Glomerular Filtration Rate > 60, BUN/Creatinine Ratio 18, Glucose Level 172H, Calcium Level 9.2, Phosphorus Level 3.6, Magnesium Level 1.6 03/21/19 03:28: White Blood Count 6.2, Red Blood Count 4.27L, Hemoglobin 12.5, Hematocrit 37, Mean Corpuscular Volume 87, Mean Corpuscular Hemoglobin 29, Mean Corpuscular Hemoglobin Concent 34, Red Cell Distribution Width 15.1H, Platelet Count 230, Mean Platelet Volume 10.5H, Neutrophils (%) (Auto) 66, Lymphocytes (%) (Auto) 22, Monocytes (%) (Auto) 10, Eosinophils (%) (Auto) 2, Basophils (%) (Auto) 0, Neutrophils # (Auto) 4.1, Lymphocytes # (Auto) 1.4, Monocytes # (Auto) 0.6, Eosinophils # (Auto) 0.1, Basophils # (Auto) 0.0 03/21/19 05:21: Glucometer 173H 03/21/19 11:14: Glucometer 176H Microbiology 03/20/19 MRSA Screen - Final, Complete MRSA not isolated 03/20/19 Urine Culture - Final, Complete 3 or more isolates A/P: Assessment/Dx: atrial fibrillation with rapid ventricular rate, Near syncope, Diabetes, Agitation, depression Plan: continue Cardizem CD 120 mg twice a day. Eliquis twice a day. Heart rate is well controlled. patient was agitated and depressed this morning. Defer to Dr. Hart. Thank you for your consultation. Please call me if you have any questions. Angelita Gonzalez MD, FACP, FACC, FSCAI, FHRS, CCDS Interventional Cardiology Cardiac Electrophysiology Vascular Medicine and Endovascular Interventions Diya GONZALEZ MD Mar 21, 2019 13:08
--- NOTE | 2019-03-21 16:14 | NUR ---
Report called to QUINCY RN who will assume pt care on arrival to 409. Personal belongings with pt at time of transfer. Daughter, Venessa also at bedside at this time. VSS prior to transfer.
[2019-03-22] VITALS: BP 131/80
[2019-03-22 04:00] VITALS: BP 136/70
[2019-03-22 05:31] LABS: BASOPHILS % (AUTO) 0 % (0-10); EOSINOPHILS # (AUTO) 0.1 10^3/uL (0.0-0.3); EOSINOPHILS % (AUTO) 2 % (0-10); HEMATOCRIT 38 % (35-52); HEMOGLOBIN 12.9 G/DL (11.5-16.0); LYMPHOCYTES # (AUTO) 1.3 X 10^3 (1.0-4.0); LYMPHOCYTES % (AUTO) 21 % (12-44); MEAN CORPUSCULAR HEMOGLOBIN 30 PG (25-34); MEAN CORPUSCULAR HGB CONC 34 G/DL (32-36); MEAN CORPUSCULAR VOLUME 88 FL (80-99); MEAN PLATELET VOLUME 10.4 FL (7.4-10.4); MONOCYTES # (AUTO) 0.5 X 10^3 (0.0-1.0); MONOCYTES % (AUTO) 8 % (0-12); NEUTROPHILS # (AUTO) 4.3 X 10^3 (1.8-7.8); NEUTROPHILS % (AUTO) 68 % (42-75); PLATELET COUNT 227 10^3/uL (130-400); RED CELL DISTRIBUTION WIDTH 14.9 % (10.0-14.5); WHITE BLOOD COUNT 6.3 10^3/uL (4.3-11.0)
[2019-03-22 06:06] LABS: BUN/CREATININE RATIO 22; CALCIUM 9.1 MG/DL (8.5-10.1); CARBON DIOXIDE 24 MMOL/L (21-32); CHLORIDE 101 MMOL/L (98-107); CREATININE SERUM 0.76 MG/DL (0.60-1.30); GFR ESTIMATED > 60; GLUCOSE 215 MG/DL (70-105); MAGNESIUM 1.8 MG/DL (1.6-2.4); POTASSIUM 3.8 MMOL/L (3.6-5.0); SODIUM 134 MMOL/L (135-145)
[2019-03-22] MEDS: inSUlin ASPART (NovoLOG) 1 UNIT/0.01 ML (CHARGE PER UNIT) SC SCH ×2 (06:16→12:00)
[2019-03-22] MEDS: CATHETER FLUSH 10 ML SYR IV SCH ×2 (06:16→13:29)
[2019-03-22 08:00] VITALS: BP 116/75
[2019-03-22] MEDS: DILTIAZEM 120 MG (CARDIZEM CD) CAP PO SCH (08:06)
[2019-03-22] MEDS: APIXABAN 5 MG (ELIQUIS) TABLET PO SCH (08:06)
--- NOTE | 2019-03-22 08:07 | NUR ---
prior to a.m. medications pulse was 78 b/p was 116/75
[2019-03-22 11:57] VITALS: BP 110/68
--- NOTE | 2019-03-22 13:18 | Cardiology Progress Note ---
Cardiology SOAP Progress Note Subjective: Controlled ventricular rate. Objective: I&O/Vital Signs 03/22/19 03/22/19 03/22/19 03/22/19 04:00 07:00 08:00 08:00 Temp 36.6 36.4 Pulse 80 92 98 Resp 24 16 B/P (MAP) 136/70 (92) 116/75 (89) Pulse Ox 94 95 95 O2 Delivery Room Air Room Air Room Air 03/22/19 11:57 Temp 36.8 Pulse 84 Resp 16 B/P (MAP) 110/68 (82) Pulse Ox 95 O2 Delivery Room Air 03/22/19 00:00 Intake Total 650 ml Balance 650 ml Weight (Pounds): 135 Weight (Ounces): 4.0 Weight (Calculated Kilograms): 61.630233 Constitutional: appears stated age, AAO x 3; No apparent distress; well- developed, well-nourished Respiratory: chest is bilaterally symmetric, lungs clear to auscultation Cardiovascular: No regular rate-rhythm; irregularly irregular; No extra beats, No parasternal heave is noted, No JVD, No edema, No bradycardia; tachycardia; No point of maximal impulse, No cardiac thrills are palpable; S1 and S2; No gallop/S3, No gallop/S4, No diastolic murmur, No systolic murmur, No friction rub, No click, No other Gastrointestional: No tender; soft, round; No distended, No pulsatile mass, No organomegaly, No guarding, No rebound, No tenderness, No hernia, No mass; audible bowel sounds; No abnormal bowel sounds, No abdominal bruits, No spleenomegaly, No other Extremities: normal range of motion, non-tender, normal inspection; No clubbing, No cyanosis; no lower extremity edema bilateral; No significant edema Neurologic/Psychiatric: no motor/sensory deficits, alert, normal mood/affect, oriented x 3, power is 5/5 both on sides Skin: normal color; No rash, No ulcerations Results/Procedures: Labs Laboratory Tests 03/21/19 17:08: Glucometer 219H 03/21/19 20:59: Glucometer 214H 03/22/19 05:24: White Blood Count 6.3, Red Blood Count 4.32L, Hemoglobin 12.9, Hematocrit 38, Mean Corpuscular Volume 88, Mean Corpuscular Hemoglobin 30, Mean Corpuscular Hemoglobin Concent 34, Red Cell Distribution Width 14.9H, Platelet Count 227, Mean Platelet Volume 10.4, Neutrophils (%) (Auto) 68, Lymphocytes (%) (Auto) 21, Monocytes (%) (Auto) 8, Eosinophils (%) (Auto) 2, Basophils (%) (Auto) 0, Neutrophils # (Auto) 4.3, Lymphocytes # (Auto) 1.3, Monocytes # (Auto) 0.5, Eosinophils # (Auto) 0.1, Basophils # (Auto) 0.0, Sodium Level 134L, Potassium Level 3.8, Chloride Level 101, Carbon Dioxide Level 24, Anion Gap 9, Blood Urea Nitrogen 17, Creatinine 0.76, Estimat Glomerular Filtration Rate > 60, BUN/Creatinine Ratio 22, Glucose Level 215H, Calcium Level 9.1, Magnesium Level 1.8 03/22/19 05:39: Glucometer 200H 03/22/19 11:02: Glucometer 326H 03/22/19 11:50: Glucometer 327H Microbiology 03/20/19 MRSA Screen - Final, Complete MRSA not isolated 03/20/19 Urine Culture - Final, Complete 3 or more isolates A/P: Assessment/Dx: atrial fibrillation with rapid ventricular rate, Near syncope, Diabetes, Agitation, depression Plan: continue Cardizem CD 120 mg twice a day. Eliquis twice a day. Heart rate is well controlled. Event monitor as an outpatient. I briefly discussed permanent pacemaker as well if she develops symptomatic bradycardia. Okay to discharge to follow-up in the office in 2-3 weeks. Thank you for your consultation. Please call me if you have any questions. Angelita Gonzalez MD, FACP, FACC, FSCAI, FHRS, CCDS Interventional Cardiology Cardiac Electrophysiology Vascular Medicine and Endovascular Interventions Diya GONZALEZ MD Mar 22, 2019 13:18
[2019-03-22] MEDS ORDERED: DILT-27 PO (13:28)
[2019-03-22] MEDS ORDERED: CITA10TA7 PO (13:28)
--- NOTE | 2019-03-22 13:30 | Discharge Instructions ---
Discharge Instructions Reconcile Patient Problems Problems Reviewed?: Yes Discharge Medications New, Converted or Re-Newed RX: Transmitted to Pharmacy Patient Instructions Patient Instructions Follow-up with Follow-up with Dr. Blackman Activity & Diet Discharge Diet: Cardiac Diet Activity as Tolerated: Yes MACI PORRAS MD Mar 22, 2019 13:30
--- NOTE | 2019-03-22 13:36 | Discharge Summary ---
Discharge Summary Hospital Course Was the Problem List Reviewed?: Yes Hospital Course Date of Admission: Mar 21, 2019 at 15:29 Admission Diagnosis : A. fib with RVR Family Physician/Provider: Charla Estrada MD Date of Discharge: 03/22/19 Discharge Diagnosis: [ ] A. fib with RVR Hospital Course: [83-year-old white female was admitted with atrial fibrillation with rapid ventricular response and dizziness and weakness. Patient was placed in the ICU and placed on Cardizem drip. The patient had been on a beta jose and diltiazem in the past with symptomatic bradycardia. The patient was titrated to diltiazem 120 mg twice a day. The patient has remained in atrial fibrillation with rate primarily in the 80s. She had had a little bit of bradycardia. The patient did have some anxiety and depression on the hospital and was started on Celexa. The patient is being discharged with instructions to go to heart Center to get a recorder for her heart. If the patient develops recurrent bradycardia it may be required that she have a pacemaker placed. This was discussed with the patient. ] Labs and Pending Lab Test: Laboratory Tests 03/21/19 17:08: Glucometer 219H 03/21/19 20:59: Glucometer 214H 03/22/19 05:24: White Blood Count 6.3, Red Blood Count 4.32L, Hemoglobin 12.9, Hematocrit 38, Mean Corpuscular Volume 88, Mean Corpuscular Hemoglobin 30, Mean Corpuscular Hemoglobin Concent 34, Red Cell Distribution Width 14.9H, Platelet Count 227, Mean Platelet Volume 10.4, Neutrophils (%) (Auto) 68, Lymphocytes (%) (Auto) 21, Monocytes (%) (Auto) 8, Eosinophils (%) (Auto) 2, Basophils (%) (Auto) 0, Neutrophils # (Auto) 4.3, Lymphocytes # (Auto) 1.3, Monocytes # (Auto) 0.5, Eosinophils # (Auto) 0.1, Basophils # (Auto) 0.0, Sodium Level 134L, Potassium Level 3.8, Chloride Level 101, Carbon Dioxide Level 24, Anion Gap 9, Blood Urea Nitrogen 17, Creatinine 0.76, Estimat Glomerular Filtration Rate > 60, BUN/Creatinine Ratio 22, Glucose Level 215H, Calcium Level 9.1, Magnesium Level 1.8 03/22/19 05:39: Glucometer 200H 03/22/19 11:02: Glucometer 326H 03/22/19 11:50: Glucometer 327H Microbiology 03/20/19 MRSA Screen - Final, Complete MRSA not isolated 03/20/19 Urine Culture - Final, Complete 3 or more isolates Home Meds Active Citalopram HBr (Citalopram Hydrobromide) 10 Mg Tablet 10 Mg PO DAILY 30 Days Diltiazem 24Hr ER (Diltiazem HCl) 120 Mg Cap.er.24h 120 Mg PO BID 30 Days 1 PO BID Reported Eliquis (Apixaban) 5 Mg Tablet 5 Mg PO BID Glimepiride 4 Mg Tablet 2 Mg PO DAILY PRN Cyanocobalamin Injection (Cyanocobalamin) 1,000 Mcg/Ml Inj 1,000 Mcg IM MONTHLY Metformin HCl 1,000 Mg Tablet 1,000 Mg PO BID Assessment/Pt Instructions Atrial fibrillation with RVR Anxiety and depression Type II diabetes Discharge Instructions Discharge Diet: Cardiac Diet Activity as Tolerated: Yes Discharge Physical Examination Vital Signs Vital Signs Date Time Temp Pulse Resp B/P (MAP) Pulse Ox O2 Delivery O2 Flow Rate FiO2 03/22/19 13:00 94 03/22/19 11:57 36.8 16 110/68 (82) 95 Room Air General Appearance: Chronically ill Cardiovascular: No Gallop, Systolic Murmur, Irregularly Irregular Gastrointestinal: Normal Bowel Sounds, Non Tender, Soft Skin: Normal Color, Warm/Dry Neurologic/Psychiatric: Alert, Oriented x3, No Motor/Sensory Deficits, Depressed Affect Allergies: Coded Allergies: ciprofloxacin (Verified Allergy, Unknown, 01/02/19) codeine (Verified Allergy, Unknown, 01/02/19) lisinopril (Verified Allergy, Unknown, 01/02/19) sulfamethoxazole (Verified Allergy, Unknown, 01/02/19) trimethoprim (Verified Allergy, Unknown, 01/02/19) Copy Copies To 1: CHARLA ESTRADA MD Copies To 2: Diya ANNA MD Discharge Summary Date of Admission Mar 21, 2019 at 15:29 Date of Discharge March 22, 2019 Discharge Date: Mar 22, 2019 Discharge Time: 14:00 Admission Diagnosis A. fib with RVR Consults/Procedures Consulations Discharge Diagnosis A. fib with RVR Type II diabetes Depression and anxiety Plan to transfer to the floor and begin Celexa as well. Possible discharge in the morning on Cardizem Clinical Quality Measures DVT/VTE Risk/Contraindication: Risk Factor Score Per Nursin RFS Level Per Nursing on Admit: 4+=Very High MACI PORRAS MD Mar 22, 2019 13:36
[2019-03-22] MEDS ORDERED: KETOROLAC 30 MG/ML VIAL IVP PRN (13:45)
[2019-03-22 14:30] VITALS: BP 110/68
--- NOTE | 2019-03-27 16:14 | Physician Query Clarification ---
PQ-Conflicting Diagnosis Admission/Discharge Admission Date: Mar 21, 2019 at 15:29 Discharge Date: Mar 22, 2019 at 14:30 The medical record reflects the following clinical scenario: History/Risk Factors: none Clinical Findings: abnormal UA Treatment: IV Ceftriaxone Question: Do you agree with the impression of the Cystitis without hematuria per Dr. Dhaliwal. Please document a response in Progress Note or Discharge Summary. 1. Yes 2. No 3. Other, with explanation of clinical findings 4. Clinically undetermined, no explanation for clinical findings. PHYSICIAN RESPONSE Do you agree w/Consulting Dx?: Yes Please remember a lack of response to the above will prompt a phone page by CDI/Coding staff. In responding to this query, please exercise your independent professional judgment. The purpose of this communication is to more accurately reflect the c omplexity of your patients condition. The fact that a question is asked does not imply that any particular answer is desired or expected. Thank you for your timely response to this clarification. Requestors name: Madonna Quirino THIS PHYSICIAN QUERY FORM IS A PERMANENT PART OF THE MEDICAL RECORD MADONNA MCGREGOR Mar 27, 2019 16:14 MACI PORRAS MD Apr 06, 2019 09:10
== END 2019-03-22 14:30 | disposition home or self-care (01) | DRG 310 ==
LOC: EDUNIT# 01:51 → ER FS 01:54 → UNDOADMOB 03:19 → ICU 03:19 → OBSVTOIN 03-21 15:29 → 4TH 03-21 16:00
PROVIDERS: ADMIT Family Medicine; ATTEND Family Medicine
DX: I48.91 Unspecified atrial fibrillation (principal); N30.90 Cystitis, unspecified without hematuria; E11.9 Type 2 diabetes mellitus without complications; F41.9 Anxiety disorder, unspecified; F32.9 Major depressive disorder, single episode, unspecified; R45.1 Restlessness and agitation; I10 Essential (primary) hypertension; Z79.01 Long term (current) use of anticoagulants; Z79.84 Long term (current) use of oral hypoglycemic drugs; Z88.2 Allergy status to sulfonamides; Z88.5 Allergy status to narcotic agent
CPT/HCPCS: 36415; 71045; 80048; 80053; 81000; 82962; 83735; 83880; 84100; 84484; 85025; 85610; 85730; 87081; 87088; 93005; 93041; 96365; 96366; 96375; G0378

== ENCOUNTER 2019-03-25 15:15 | Outpatient (RCR) | payer MEDICARE, MEDICAID ==
[~2019-03-25 15:15] MED LIST changes: +CITA10TA7 PO; +DILT-27 PO
[2019-04-07] MEDS ORDERED: DILT120C94 PO (10:06)
[2019-04-09] MEDS ORDERED: CEPH500C PO (14:48)
== END 2019-06-23 | disposition home or self-care (01) ==
LOC: CARD 15:15
PROVIDERS: ATTEND Internal Medicine Interventional Cardiology
DX: I48.91 Unspecified atrial fibrillation (principal)

== ENCOUNTER 2019-04-06 14:16 | Inpatient (IN) | payer MEDICARE, MEDICAID ==
[2019-04-06] VITALS (8 sets, daily range): BP systolic 120–144; BP diastolic 74–106
[~2019-04-06] VITALS: Ht 167.7 cm; Wt 62.2 kg
[2019-04-06] MEDS ORDERED: DILTIAZEM 25 MG/5 ML INJ (CARDIZEM) VIAL IVP ONE (14:30)
--- NOTE | 2019-04-06 14:55 | Diagnostic Imaging Report ---
INDICATION: Cardiac dysrhythmia. EXAMINATION: Upright AP view of the chest is obtained with comparison made to study of 03/21/2019. FINDINGS: The study is limited by rotation. There is blunting of the left costophrenic sulcus with probable mild parahilar atelectasis and/or pneumonitis similar to previous study. There is no evidence of pneumothorax or new infiltrate. IMPRESSION: Mild left pleural fluid and/or thickening with probable bilateral parahilar atelectasis and/or pneumonitis similar to previous examination. Follow-up PA and lateral views of the chest with improved positioning would be useful. Dictated by: Dictated on workstation # [id number]
[2019-04-06 15:13] LABS: HEMATOCRIT 43 % (35-52); HEMOGLOBIN 14.2 G/DL (11.5-16.0); MEAN CORPUSCULAR HEMOGLOBIN 30 PG (25-34); MEAN CORPUSCULAR HGB CONC 33 G/DL (32-36); MEAN PLATELET VOLUME 10.4 FL (7.4-10.4); PLATELET COUNT 190 10^3/uL (130-400); RED CELL DISTRIBUTION WIDTH 15.1 % (10.0-14.5)
[2019-04-06 15:14] LABS: BASOPHILS % (AUTO) 0 % (0-10); EOSINOPHILS # (AUTO) 0.1 10^3/uL (0.0-0.3); EOSINOPHILS % (AUTO) 1 % (0-10); LYMPHOCYTES # (AUTO) 1.4 X 10^3 (1.0-4.0); LYMPHOCYTES % (AUTO) 23 % (12-44); MEAN CORPUSCULAR VOLUME 90 FL (80-99); MONOCYTES # (AUTO) 0.4 X 10^3 (0.0-1.0); MONOCYTES % (AUTO) 7 % (0-12); NEUTROPHILS % (AUTO) 68 % (42-75)
[2019-04-06 15:19] LABS: INR 1.3 (0.8-1.4); PROTHROMBIN TIME PATIENT 17.1 SEC (12.2-14.7)
--- NOTE | 2019-04-06 15:32 | ED Cardiac General ---
History of Present Illness General Chief Complaint: Cardiac/General Problems Stated Complaint: GENERAL WEAKNESS History of Present Illness Date Seen by Provider: Apr 06, 2019 Time Seen by Provider: 15:00 Initial Comments The patient is an 83-year-old female with a history of hypertension, hyperlipidemia, hmq-ifcjfsa-kmiudalcu diabetes and paroxysmal atrial fibrillat ion on Eliquis. She presents with concern for about 1 day of generalized fatigue/weakness. She reports no other focal symptoms and specifically denies fevers, nausea or vomiting, new productive cough, focal weakness, numbness, tingling, neck stiffness, vision changes, shortness of breath, chest pain of any kind, flank pain, back pain, dysuria or hematuria, changes in bowel habits. Patient noted by EMS to be in atrial fibrillation with rapid ventricular response and this is also seen on the cardiac cath lab radiology technologist upon arrival here. Vital signs otherwise including blood pressure are appropriate. Allergies and Home Medications Allergies Coded Allergies: ciprofloxacin (Verified Allergy, Unknown, 01/02/19) codeine (Verified Allergy, Unknown, 01/02/19) lisinopril (Verified Allergy, Unknown, 01/02/19) sulfamethoxazole (Verified Allergy, Unknown, 01/02/19) trimethoprim (Verified Allergy, Unknown, 01/02/19) Home Medications Apixaban 5 Mg Tablet, 5 MG PO BID, (Reported) Citalopram Hydrobromide 10 Mg Tablet, 10 MG PO DAILY Prescribed by: MACI PORRAS on 03/22/19 1328 Cyanocobalamin 1,000 Mcg/Ml Inj, 1,000 MCG IM MONTHLY, (Reported) Diltiazem HCl 120 Mg Cap.er.24h, 120 MG PO BID 1 PO BID Prescribed by: MACI PORRAS on 03/22/19 1328 Glimepiride 4 Mg Tablet, 2 MG PO DAILY PRN for BS>160, (Reported) Metformin HCl 1,000 Mg Tablet, 1,000 MG PO BID, (Reported) Patient Home Medication List Home Medication List Reviewed: Yes Review of Systems Review of Systems Constitutional: see HPI All Other Systems Reviewed Negative Unless Noted: Yes (Negative excepted noted.) Past Hkaxjiw-Holyco-Eroexv Hx Past Med/Social Hx: Reviewed Nursing Past Med/Soc Hx Patient Social History 2nd Hand Smoke Exposure: No Recent Hopitalizations: No Immunizations Up To Date Date of Pneumonia Vaccine: Mar 08, 2017 Seasonal Allergies Seasonal Allergies: No Past Medical History Surgeries: Yes Hysterectomy Respiratory: No Cardiac: Yes Hypertension Neurological: No Genitourinary: Yes Bladder Infection Gastrointestinal: No Musculoskeletal: No Endocrine: Yes Diabetes, Non-Insulin dep HEENT: No Cancer: No Psychosocial: No Integumentary: No Blood Disorders: No Family Medical History Reviewed Nursing Family Hx No Pertinent Family Hx Physical Exam Vital Signs Capillary Refill : Less Than 3 Seconds Height, Weight, BMI Height: 5'8.00" Weight: 135lbs. 4.0oz. 61.386654qy; 20.4 BMI Method:Stated General Appearance: No Apparent Distress Other comments This is an elderly female appearing nontoxic and in no acute distress. Head is normocephalic and atraumatic. Neck is supple and nontender. Oropharynx is moist. Lungs are clear to auscultation in all stations. There is a normal S1 and S2 without rubs or gallops and capillary refill is appropriate, less than 2 seconds globally. There is a tachycardic, irregular rhythm. Abdomen is soft, nontender and nondistended. Skin is warm and dry without cyanosis, clubbing or edema. Psychiatrically, the patient demonstrates appropriate mood and affect and is alert. Progress/Results/Core Measures Results/Orders Lab Results Laboratory Tests Test 04/06/19 14:50 Range/Units White Blood Count 6.0 4.3-11.0 10^3/uL Red Blood Count 4.81 4.35-5.85 10^6/uL Hemoglobin 14.2 11.5-16.0 G/DL Hematocrit 43 35-52 % Mean Corpuscular Volume 90 80-99 FL Mean Corpuscular Hemoglobin 30 25-34 PG Mean Corpuscular Hemoglobin Concent 33 32-36 G/DL Red Cell Distribution Width 15.1 H 10.0-14.5 % Platelet Count 190 130-400 10^3/uL Mean Platelet Volume 10.4 7.4-10.4 FL Neutrophils (%) (Auto) 68 42-75 % Lymphocytes (%) (Auto) 23 12-44 % Monocytes (%) (Auto) 7 0-12 % Eosinophils (%) (Auto) 1 0-10 % Basophils (%) (Auto) 0 0-10 % Neutrophils # (Auto) 4.0 1.8-7.8 X 10^3 Lymphocytes # (Auto) 1.4 1.0-4.0 X 10^3 Monocytes # (Auto) 0.4 0.0-1.0 X 10^3 Eosinophils # (Auto) 0.1 0.0-0.3 10^3/uL Basophils # (Auto) 0.0 0.0-0.1 10^3/uL Prothrombin Time 17.1 H 12.2-14.7 SEC INR Comment 1.3 0.8-1.4 Activated Partial Thromboplast Time 31 24-35 SEC My Orders Orders - ANTONIO HELM MD Cbc With Automated Diff (04/06/19 14:28) Comprehensive Metabolic Panel (04/06/19 14:28) Troponin I Fs (04/06/19 14:28) Ekg Tracing (04/06/19 14:28) Chest 1 View Ap/Pa Only (04/06/19 14:28) Protime With Inr (04/06/19 14:28) Partial Thromboplastin Time (04/06/19 14:28) Diltiazem Injection (Cardizem Injection) (04/06/19 14:30) Medications Given in ED Current Medications Medications Dose Ordered Sig/Annetta Route Start Time Stop Time Status Last Admin Dose Admin Diltiazem HCl 20 mg ONCE ONCE IVP 04/06/19 14:30 04/06/19 14:31 DC 04/06/19 14:53 20 MG Progress Progress Note : Progress Note Patient in intrafibrillation with rapid ventricular response. Otherwise examination is reassuring. We will give push dose of Cardizem and then reevaluate. We'll check labs and EKG and chest x-ray. The patient will minimally be an admission and will require ICU admission of the Cardizem drip was required . Update 1530: Patient is resting comfortably and feels much better. She does require a Cardizem drip for control of rate. Cardizem drip initiated. We will proceed with admission at this time to the intensive care unit at [facility]. Patient is graciously accepted in transfer by Dr. Fuentes. Comment Atrial fibrillation with rapid ventricular response, rate 138, no acute ST elevation or depression, EP interpretation. Diagnostic Imaging Comments CT HEAD WO INDICATION: Headache and tinnitus TECHNIQUE: Routine non contrast-enhanced axial images were obtained from the skull base to the vertex. Auto Exposure Controls were utilized during the CT exam to meet ALARA standards for radiation dose reduction COMPARISON: None. FINDINGS: The ventricles and cortical sulci are diffusely prominent, compatible with age-related volume loss. There is no midline shift or mass-effect. No acute intra-axial hemorrhage is seen. There are no abnormal areas of increased or decreased density to suggest acute hemorrhage or edema. No extra-axial masses or collections are present. The bony calvarium is intact. The visualized paranasal sinuses are unremarkable. The mastoid air cells are clear. IMPRESSION: 1. No acute intracranial abnormality. No CT evidence of mass, acute infarct or intracranial hemorrhage. Dictated on workstation # [id number] Departure Impression Primary Impression: Atrial fibrillation with rapid ventricular response Disposition: ADMITTED INPATIENT Condition: Improved Departure-Patient Inst. Referrals: CHARLA SAHA MD (PCP/Family) Primary Care Physician ANTONIO HELM MD Apr 06, 2019 15:32
[2019-04-06] MEDS ORDERED: DILTIAZEM IV FOR DRIP 125 MG in NS (IVPB) 100 ML IV SCH (15:45)
[2019-04-06 15:47] LABS: CARBON DIOXIDE 23 MMOL/L (21-32); CHLORIDE 98 MMOL/L (98-107); POTASSIUM 4.1 MMOL/L (3.6-5.0); SODIUM 136 MMOL/L (135-145)
[2019-04-06 15:48] LABS: ALANINE AMINOTRANSFERASE 23 U/L (0-55); ALBUMIN 3.5 GM/DL (3.2-4.5); ALKALINE PHOSPHATASE 91 U/L (40-136); BILIRUBIN,TOTAL 0.6 MG/DL (0.1-1.0); BUN/CREATININE RATIO 20; CALCIUM 9.5 MG/DL (8.5-10.1); CREATININE SERUM 0.56 MG/DL (0.60-1.30); GFR ESTIMATED > 60; GLUCOSE 168 MG/DL (70-105); TOTAL PROTEIN 7.5 GM/DL (6.4-8.2)
[2019-04-06 16:25] LABS: BILIRUBIN,URINE NEGATIVE (NEGATIVE); COLOR,URINE PALE YELLOW; GLUCOSE, URINE (UA) NEGATIVE (NEGATIVE); KETONES,URINE 1+ (NEGATIVE); LEUKOCYTE ESTERASE ,URINE 3+ (NEGATIVE); NITRITE,URINE NEGATIVE (NEGATIVE); PROTEIN,URINE NEGATIVE (NEGATIVE)
[2019-04-06 16:26] LABS: BACTERIA,URINE LARGE /HPF; SQUAMOUS EPITHELIAL CELL,UR 0-2 /HPF; WBC,URINE TNTC /HPF
[2019-04-06] MEDS ORDERED: CATHETER FLUSH 10 ML SYR IV PRN (20:15)
[2019-04-06] MEDS: APIXABAN 5 MG (ELIQUIS) TABLET PO SCH (21:47)
[2019-04-06] MEDS: DILTIAZEM IV FOR DRIP 125 MG in NS (IVPB) 100 ML IV SCH (22:06)
[2019-04-06] MEDS: CATHETER FLUSH 10 ML SYR IV SCH (22:07)
[2019-04-06] MEDS ORDERED: AMIODARONE FOR BOLUS 150 MG in D5W 100 ML IVPB 100 ML IV SCH (22:57)
[2019-04-06] MEDS ORDERED: D5W 100 ML IVPB 100 ML IV ONE (23:03)
[2019-04-06] MEDS ORDERED: AMIODARONE (OMNICELL DRIP KIT) 150 MG/3 ML IV ONE (23:03)
[2019-04-07] VITALS (24 sets, daily range): BP systolic 95–136; BP diastolic 55–97
[2019-04-07 02:01] LABS: BASOPHILS % (AUTO) 0 % (0-10); EOSINOPHILS % (AUTO) 1 % (0-10); HEMATOCRIT 40 % (35-52); HEMOGLOBIN 13.3 G/DL (11.5-16.0); LYMPHOCYTES # (AUTO) 0.9 X 10^3 (1.0-4.0); LYMPHOCYTES % (AUTO) 13 % (12-44); MEAN CORPUSCULAR HEMOGLOBIN 30 PG (25-34); MEAN CORPUSCULAR HGB CONC 33 G/DL (32-36); MEAN CORPUSCULAR VOLUME 89 FL (80-99); MEAN PLATELET VOLUME 10.4 FL (7.4-10.4); MONOCYTES # (AUTO) 0.5 X 10^3 (0.0-1.0); MONOCYTES % (AUTO) 8 % (0-12); NEUTROPHILS # (AUTO) 5.5 X 10^3 (1.8-7.8); NEUTROPHILS % (AUTO) 79 % (42-75); PLATELET COUNT 191 10^3/uL (130-400); RED CELL DISTRIBUTION WIDTH 15.6 % (10.0-14.5)
--- NOTE | 2019-04-07 02:09 | NUR ---
AMIODARONE INFUSION STARTED @ APPROX 2300 04/[address] ANNA. WITHIN APPROX. 2 MINUTES OF INFUSING THIS PATIENT BECAME PANICKED, RED FACED, AND STATED SHE WAS "BURNING UP". THIS NURSE STOPPED THE INFUSION IMMEDIATELY AND CONTACTED E-ICU. E-ICU STATED THE EPISODE SOUNDED LIKE AN ALLERGIC REACTION TO THE MEDICATION AND TO KEEP THE INFUSION OFF AND TO NOTIFY THE P[employer] BUILDER. DR. ANNA NOTIFIED. PT IMPROVED MINUTES AFTER INFUSION WAS STOPPED.
[2019-04-07 02:20] LABS: ALANINE AMINOTRANSFERASE 20 U/L (0-55); ALBUMIN 3.2 GM/DL (3.2-4.5); ALKALINE PHOSPHATASE 86 U/L (40-136); BILIRUBIN,DIRECT 0.5 MG/DL (0.0-0.3); BILIRUBIN,INDIRECT 0.3 MG/DL; BILIRUBIN,TOTAL 0.8 MG/DL (0.1-1.0); BUN/CREATININE RATIO 19; CALCIUM 9.1 MG/DL (8.5-10.1); CARBON DIOXIDE 23 MMOL/L (21-32); CHLORIDE 103 MMOL/L (98-107); CREATININE SERUM 0.83 MG/DL (0.60-1.30); GFR ESTIMATED > 60; GLUCOSE 284 MG/DL (70-105); POTASSIUM 3.7 MMOL/L (3.6-5.0); SODIUM 136 MMOL/L (135-145); TOTAL PROTEIN 6.4 GM/DL (6.4-8.2)
[2019-04-07] MEDS ORDERED: inSUlin ASPART (NovoLOG) 1 UNIT/0.01 ML (CHARGE PER UNIT) ONE (06:10)
[2019-04-07] MEDS: CATHETER FLUSH 10 ML SYR IV SCH ×3 (06:43→22:55)
[2019-04-07] MEDS: inSUlin ASPART (NovoLOG) 1 UNIT/0.01 ML (CHARGE PER UNIT) SQ SCH ×4 (06:43→20:07)
[2019-04-07] MEDS ORDERED: AMIODARONE INJECTION 450 MG in D5W IV SOLUTION (EXCEL) 250 ML IV SCH (07:00)
[2019-04-07] MEDS: APIXABAN 5 MG (ELIQUIS) TABLET PO SCH ×2 (08:02→20:07)
[2019-04-07] MEDS: DILTIAZEM IV FOR DRIP 125 MG in NS (IVPB) 100 ML IV SCH (08:02)
[2019-04-07] MEDS ORDERED: DILT120C94 PO (10:06)
--- NOTE | 2019-04-07 10:10 | NUR ---
SPOKE WITH THE PATIENTS FAMILY ABOUT MEDICATIONS. THEY VERIFIED WHAT SHE IS CURRENTLY TAKING. SHE FILLED CELEXA 10MG #30 03-22-19 AFTER HER LAST DISCHARGE HOWEVER SHE IS NO LONGER TAKING IT. THEY STOPPED THE METOPROLOL HCTZ 100-25 AT HER LAST DISCHARGE THAT WAS FILLED #90 02-25-19. SHE FILLED METFORMIN 1000MG #180 FOR 90 DAYS 01-28-19 BUT FAMILY STATES SHE HAS ONLY BEEN TAKING 1 TAB AT HS. HER BLOOD SUGAR IS TOO LOW IF SHE TAKES IT BID.
--- NOTE | 2019-04-07 11:05 | NUR ---
Pastoral care visit.
--- NOTE | 2019-04-07 12:23 | History & Physical ---
OBDULIAAntonioALTAF SILVA, 04/07/19 1223: HPI History of Present Illness: CC: fast heartbeat HPI: Pt reported not feeling right and her hands were tingling. Had daughter take BP. Results of 150/101 with HR 144. Pt has hx of a-fib. Denies SOB. Started yesterday. Daughter called EMS and brought to hospital. Source: patient, family Exam Limitations: no limitations Date seen by provider: Apr 07, 2019 Time Seen by Provider: 08:16 Attending Physician Daija Mckeon MD PCP Faustino Estrada MD Consult Date of Admission Apr 06, 2019 at 15:48 Home Medications Home Medications Reviewed patient Home Medication Reconciliation performed by pharmacy medication reconciliations natural gas technician and/or nursing. Patients Allergies have been reviewed. Allergies Coded Allergies: amiodarone (Verified Allergy, Unknown, 04/07/19) ciprofloxacin (Verified Allergy, Unknown, 01/02/19) codeine (Verified Allergy, Unknown, 01/02/19) lisinopril (Verified Allergy, Unknown, 01/02/19) sulfamethoxazole (Verified Allergy, Unknown, 01/02/19) trimethoprim (Verified Allergy, Unknown, 01/02/19) [id number] Hx Patient Social History Alcohol Use: Denies Use Recreational Drug Use: No Smoking Status: Never a Smoker 2nd Hand Smoke Exposure: No Recent Foreign Travel: No Contact w/other who traveled: No Recent Hopitalizations: No Recent Infectious Disease Expo: No Immunizations Up To Date Date of Pneumonia Vaccine: Mar 08, 2017 Date of Influenza Vaccine: Apr 02, 2019 Past Medical History PMHx: HTN DMII AFib Macular degeneration SurgHx: Hysterectomy Bilateral cataract removal Family Medical History Significant Family History: No Pertinent Family Hx, Cancer (father; when he was 39, unsure of type) Review of Systems ([facility]) Constitutional: No chills, No fever EENTM: hearing loss, vision loss; No throat pain Respiratory: cough; No short of breath Cardiovascular: No chest pain, No palpitations Gastrointestinal: No abdominal pain, No nausea, No vomiting Genitourinary: No dysuria, No frequency Musculoskeletal: No muscle pain, No muscle weakness Skin: No lesions, No rash Psychiatric/Neurological: Denies Anxiety, Denies Depressed, Denies Numbness, Denies Tingling Physical Exam-([facility]) Physical Exam Vital Signs VS - Last 72 Hours, by Label 04/06/19 04/06/19 04/06/19 04/06/19 14:20 16:14 18:21 19:00 Temp 36.9 Pulse 123 94 97 90 Resp 26 26 20 B/P (MAP) 157/94 (115) 116/68 107/58 Pulse Ox 94 95 95 O2 Delivery Room Air Room Air Room Air 04/06/19 04/06/19 04/06/19 04/06/19 19:05 19:15 19:30 19:45 Pulse 100 99 106 86 Resp 25 20 11 B/P (MAP) 144/106 (119) 139/84 (102) 120/82 (95) 131/74 (93) Pulse Ox 97 97 92 94 O2 Delivery Room Air Room Air Room Air Room Air 04/06/19 04/06/19 04/06/19 04/06/19 20:00 20:00 20:06 21:00 Temp 36.6 Pulse 100 100 Resp 24 24 B/P (MAP) 129/78 (95) 129/78 (95) Pulse Ox 96 96 O2 Delivery Room Air Room Air Room Air 04/06/19 04/06/19 04/06/19 04/07/19 22:00 22:06 23:00 00:00 Pulse 86 100 96 Resp 29 9 26 B/P (MAP) 131/96 (108) 131/77 (95) 122/88 (99) Pulse Ox 92 O2 Delivery Room Air Room Air Room Air Room Air 04/07/19 04/07/19 04/07/19 04/07/19 00:00 01:00 01:00 02:00 Pulse 84 84 87 Resp 20 26 B/P (MAP) 119/62 (81) 116/59 (78) Pulse Ox 94 93 O2 Delivery Room Air Room Air Room Air 04/07/19 04/07/19 04/07/19 04/07/19 03:00 04:00 04:00 05:00 Pulse 80 68 74 Resp 22 18 30 B/P (MAP) 118/59 (78) 112/60 (77) 117/74 (88) Pulse Ox 92 94 93 O2 Delivery Room Air Room Air Room Air Room Air 04/07/19 04/07/19 04/07/19 04/07/19 06:00 07:00 07:00 08:00 Pulse 73 88 69 Resp 21 25 B/P (MAP) 110/80 (90) 126/73 (90) Pulse Ox 93 92 O2 Delivery Room Air Room Air Room Air 04/07/19 04/07/19 04/07/19 04/07/19 08:00 08:00 08:02 09:00 Temp 36.9 Pulse 76 67 Resp 24 30 B/P (MAP) 106/57 (73) 106/57 129/97 (108) Pulse Ox 93 95 O2 Delivery Room Air Room Air 04/07/19 04/07/19 04/07/19 04/07/19 10:00 11:00 11:21 12:00 Pulse 94 87 77 Resp 15 12 24 B/P (MAP) 124/75 (91) 130/91 (104) 113/55 (74) Pulse Ox 96 94 92 O2 Delivery Room Air Room Air Room Air Room Air 04/07/19 12:05 Temp 36.2 Pulse 77 Resp 28 B/P (MAP) 118/66 (83) Pulse Ox 93 Capillary Refill : Less Than 3 Seconds General Appearance: WD/WN, no apparent distress Eyes: Bilateral Eye EOMI HEENT: pharynx normal, other (lateral deviation of R eye) Neck: non-tender, supple Respiratory: chest non-tender, lungs clear, normal breath sounds, no respiratory distress, no accessory muscle use Cardiovascular: regular rate, rhythm, no murmur Gastrointestinal: normal bowel sounds, non tender, soft Extremities: normal inspection, no pedal edema Neurologic/Psychiatric: alert, normal mood/affect Skin: normal color, warm/dry Lymphatic: no adenopathy Assessment/Plan Assessment/Plan Assessment & Plan Assessment: 1. A-fib 2. Hx of DM, HTN, macular degeneration Plan: 1. Cardiology is consulted. Planning to medically cardiovert now. Will refer to Cardiology for plan. 2. Continue home medications. Clinical Quality Measures DVT/VTE Risk/Contraindication: Risk Factor Score Per Nursin RFS Level Per Nursing on Admit: 3=High DAIJA MCKEON MD 04/07/19 1241: HPI History of Present Illness: Date seen by provider: Apr 07, 2019 Time Seen by Provider: 09:13 Home Medications Allergies Coded Allergies: amiodarone (Verified Allergy, Unknown, 04/07/19) ciprofloxacin (Verified Allergy, Unknown, 01/02/19) codeine (Verified Allergy, Unknown, 01/02/19) lisinopril (Verified Allergy, Unknown, 01/02/19) sulfamethoxazole (Verified Allergy, Unknown, 01/02/19) trimethoprim (Verified Allergy, Unknown, 01/02/19) Reviewed Test Results Reviewed Test Results Lab Laboratory Tests Test 04/06/19 14:50 04/06/19 15:19 04/06/19 16:00 04/06/19 20:20 Range/Units White Blood Count 6.0 4.3-11.0 10^3/uL Red Blood Count 4.81 4.35-5.85 10^6/uL Hemoglobin 14.2 11.5-16.0 G/DL Hematocrit 43 35-52 % Mean Corpuscular Volume 90 80-99 FL Mean Corpuscular Hemoglobin 30 25-34 PG Mean Corpuscular Hemoglobin Concent 33 32-36 G/DL Red Cell Distribution Width 15.1 H 10.0-14.5 % Platelet Count 190 130-400 10^3/uL Mean Platelet Volume 10.4 7.4-10.4 FL Neutrophils (%) (Auto) 68 42-75 % Lymphocytes (%) (Auto) 23 12-44 % Monocytes (%) (Auto) 7 0-12 % Eosinophils (%) (Auto) 1 0-10 % Basophils (%) (Auto) 0 0-10 % Neutrophils # (Auto) 4.0 1.8-7.8 X 10^3 Lymphocytes # (Auto) 1.4 1.0-4.0 X 10^3 Monocytes # (Auto) 0.4 0.0-1.0 X 10^3 Eosinophils # (Auto) 0.1 0.0-0.3 10^3/uL Basophils # (Auto) 0.0 0.0-0.1 10^3/uL Prothrombin Time 17.1 H 12.2-14.7 SEC INR Comment 1.3 0.8-1.4 Activated Partial Thromboplast Time 31 24-35 SEC Sodium Level 136 135-145 MMOL/L Potassium Level 4.1 3.6-5.0 MMOL/L Chloride Level 98 98-107 MMOL/L Carbon Dioxide Level 23 21-32 MMOL/L Anion Gap 15 H 5-14 MMOL/L Blood Urea Nitrogen 11 7-18 MG/DL Creatinine 0.56 L 0.60-1.30 MG/DL Estimat Glomerular Filtration Rate > 60 BUN/Creatinine Ratio 20 Glucose Level 168 H 70-105 MG/DL Calcium Level 9.5 8.5-10.1 MG/DL Corrected Calcium 9.9 8.5-10.1 MG/DL Total Bilirubin 0.6 0.1-1.0 MG/DL Aspartate Amino Transf (AST/SGOT) 41 H 5-34 U/L Alanine Aminotransferase (ALT/SGPT) 23 0-55 U/L Alkaline Phosphatase 91 40-136 U/L Troponin I < 0.30 < 0.028 <0.028 NG/ML Total Protein 7.5 6.4-8.2 GM/DL Albumin 3.5 3.2-4.5 GM/DL Glucometer 160 H 70-110 MG/DL Urine Color PALE YELLOW Urine Clarity cloudy Urine pH 7.0 5-9 Urine Specific [place] 1.010 L 1.016-1.022 Urine Protein NEGATIVE NEGATIVE Urine Glucose (UA) NEGATIVE NEGATIVE Urine Ketones 1+ H NEGATIVE Urine Nitrite NEGATIVE NEGATIVE Urine Bilirubin NEGATIVE NEGATIVE Urine Urobilinogen 2.0 NORMAL MG/DL Urine Leukocyte Esterase 3+ H NEGATIVE Urine RBC (Auto) TRACE H NEGATIVE Urine RBC NONE /HPF Urine WBC TNTC H /HPF Urine Squamous Epithelial Cells 0-2 /HPF Urine Crystals NONE /LPF Urine Bacteria LARGE H /HPF Urine Casts NONE /LPF Urine Mucus NONE /LPF Urine Culture Indicated YES Test 04/07/19 01:55 04/07/19 07:55 04/07/19 10:45 Range/Units White Blood Count 7.0 4.3-11.0 10^3/uL Red Blood Count 4.48 4.35-5.85 10^6/uL Hemoglobin 13.3 11.5-16.0 G/DL Hematocrit 40 35-52 % Mean Corpuscular Volume 89 80-99 FL Mean Corpuscular Hemoglobin 30 25-34 PG Mean Corpuscular Hemoglobin Concent 33 32-36 G/DL Red Cell Distribution Width 15.6 H 10.0-14.5 % Platelet Count 191 130-400 10^3/uL Mean Platelet Volume 10.4 7.4-10.4 FL Neutrophils (%) (Auto) 79 H 42-75 % Lymphocytes (%) (Auto) 13 12-44 % Monocytes (%) (Auto) 8 0-12 % Eosinophils (%) (Auto) 1 0-10 % Basophils (%) (Auto) 0 0-10 % Neutrophils # (Auto) 5.5 1.8-7.8 X 10^3 Lymphocytes # (Auto) 0.9 L 1.0-4.0 X 10^3 Monocytes # (Auto) 0.5 0.0-1.0 X 10^3 Eosinophils # (Auto) 0.0 0.0-0.3 10^3/uL Basophils # (Auto) 0.0 0.0-0.1 10^3/uL Sodium Level 136 135-145 MMOL/L Potassium Level 3.7 3.6-5.0 MMOL/L Chloride Level 103 98-107 MMOL/L Carbon Dioxide Level 23 21-32 MMOL/L Anion Gap 10 5-14 MMOL/L Blood Urea Nitrogen 16 7-18 MG/DL Creatinine 0.83 0.60-1.30 MG/DL Estimat Glomerular Filtration Rate > 60 BUN/Creatinine Ratio 19 Glucose Level 284 H 70-105 MG/DL Calcium Level 9.1 8.5-10.1 MG/DL Corrected Calcium 9.7 8.5-10.1 MG/DL Total Bilirubin 0.8 0.1-1.0 MG/DL Direct Bilirubin 0.5 H 0.0-0.3 MG/DL Indirect Bilirubin 0.3 MG/DL Aspartate Amino Transf (AST/SGOT) 26 5-34 U/L Alanine Aminotransferase (ALT/SGPT) 20 0-55 U/L Alkaline Phosphatase 86 40-136 U/L Troponin I < 0.028 < 0.028 <0.028 NG/ML Total Protein 6.4 6.4-8.2 GM/DL Albumin 3.2 3.2-4.5 GM/DL Thyroid Stimulating Hormone (TSH) 1.12 0.35-4.94 UIU/ML Glucometer 206 H 70-110 MG/DL Physical Exam-([facility]) Physical Exam General Appearance: WD/WN, no apparent distress Respiratory: lungs clear, normal breath sounds, no respiratory distress, no accessory muscle use Cardiovascular: tachycardia, irregularly irregular Gastrointestinal: normal bowel sounds, non tender, soft Extremities: normal inspection, no pedal edema Neurologic/Psychiatric: alert, normal mood/affect Skin: normal color, warm/dry Assessment/Plan Assessment/Plan Admission Status: Inpatient Order (span 2 midnights) Reason for Inpatient Admission: A fib with RVR requiring continuous drip, will need 2 nights or more for treatment. (1) Atrial fibrillation with rapid ventricular response Status: Acute Assessment & Plan: Started on cardizem drip, Cardiology consulted, appreciate recommendations. Had reaction to amiodarone overnight and it was stopped. (2) Hypertension Status: Acute Qualifiers: Qualified Codes: I10 - Essential (primary) hypertension (3) Diabetes Status: Chronic Assessment & Plan: Resume home metformin, hold home prn glimeperide. Diabetic diet, sliding scale insulin. Qualifiers: (4) DVT prophylaxis Status: Acute Assessment & Plan: On apixaban Supervisory-Addendum Brief Verification & Attestation Participated in pt care: history, MDM, physical Personally performed: exam, history, MDM Care discussed with: Medical Student Procedures: n/a Verification and Attestation of Medical Student E/M Service A medical student performed and documented this service in my presence. I reviewed and verified all information documented by the medical student and made modifications to such information, when appropriate. I personally performed the physical exam and medical decision making. See my portion of note for my physical exam and problem list for my assessment and plan. Daija Mckeon, Apr 07, 2019,12:40 ALTAF IRWIN, Apr 07, 2019 12:23 DAIJA MCKEON MD Apr 07, 2019 12:41
--- NOTE | 2019-04-07 14:14 | Consultation-Cardiology ---
HPI-Cardiology Cardiology Consultation: Date of Consultation 04/07/19 Date of Admission Attending Physician Gwendolyn Fuentes MD Admitting Physician Faustino Estrada MD Consulting Physician Diya GONZALEZ MD HPI: Time Seen by a Provider: 08:30 Chief Complaint: Palpitations This is a 83-year-old lady who had seen recently for atrial fibrillation with rapid ventricular rate. She has history of hypertension, hyperlipidemia, diabetes. She has persistent atrial fibrillation and takes Eliquis. On her first admission she had an episode of bradycardia with heart rate in the 30s therefore she was started on Cardizem 120 mg daily. We tried to do transesophageal echocardiogram assisted cardioversion however the patient became very hypoxic therefore we did not perform transesophageal echocardiogram. The plan was to continue Eliquis for 1 month and do elective cardioversion. However she came back recently with complaint of atrial fibrillation with RVR. Cardizem was increased to 120 mg twice a day with significant resolution of symptoms, however she continued to be in atrial fibrillation and was discharged. She presents again with atrial fibrillation with rapid ventricular rate. She denies any other cardiac symptoms. Review of Systems-Cardiology Review of Systems Constitutional: As described under HPI; No As described under HPI, No no symptoms reported, No chills, No fever, No lightheadedness Eyes: No As described under HPI, No no symptoms reported, No blindness, No blurred vision, No contact lenses, No drainage, No decreased acuity, No foreign body sensation, No pain, No vision change Ears/Nose/Throat: No As described under HPI, No no symptoms reported, No chronic hearing loss, No ear discharge, No ear pain, No nasal drainage, No ulcerations Respiratory: No no symptoms reported; As described under HPI; No As described under HPI, No cough, No orthopnea, No shortness of breath, No SOB with excertion Cardiovascular: No no symptoms reported; As described under HPI; No As described under HPI, No chest pain, No edema; irregular heart rate; No lightheadedness; palpitations Gastrointestinal: No no symptoms reported, No As described under HPI, No abdomen distended, No abdominal pain, No blood streaked bowels, No constipation, No diarrhea, No nausea, No vomiting, No stool coloration changes Genitourinary: No As described under HPI, No burning, No dysuria, No discharge, No frequency, No flank pain, No hematuria, No urgency : Yes : No Skin: No rash, No skin related problems, No ulcerations Psychiatric/Neurological: No anxiety, No depression, No seizure, No focal weakness, No syncope Hematologic: No bleeding abnormalities All Other Systems Reviewed Negative Unless Noted: Yes (Negative excepted noted.) [id number] Hx Patient Social History Alcohol Use: Denies Use Recreational Drug Use: No Smoking Status: Never a Smoker 2nd Hand Smoke Exposure: No Recent Foreign Travel: No Recent Infectious Disease Expo: No Hospitalization with Isolation: Denies Immunizations Up To Date Date of Pneumonia Vaccine: Mar 08, 2017 Date of Influenza Vaccine: Apr 02, 2019 Past Medical History PMH As described under Assessment. Allergies and Home Medications Allergies Coded Allergies: amiodarone (Verified Allergy, Unknown, 04/07/19) ciprofloxacin (Verified Allergy, Unknown, 01/02/19) codeine (Verified Allergy, Unknown, 01/02/19) lisinopril (Verified Allergy, Unknown, 01/02/19) sulfamethoxazole (Verified Allergy, Unknown, 01/02/19) trimethoprim (Verified Allergy, Unknown, 01/02/19) Home Medications Apixaban 5 Mg Tablet, 5 MG PO BID, (Reported) Cyanocobalamin 1,000 Mcg/Ml Inj, 1,000 MCG IM MONTHLY, (Reported) Diltiazem HCl 120 Mg Cap.er.24h, 120 MG PO BID, (Reported) Glimepiride 4 Mg Tablet, 2 MG PO DAILY PRN for BS>160, (Reported) Metformin HCl 1,000 Mg Tablet, 1,000 MG PO HS, (Reported) Patient Home Medication List Home Medication List Reviewed: Yes Physical Exam-Cardiology Physical Exam Vital Signs/I&O 04/07/19 04/07/19 04/07/19 04/07/19 05:00 06:00 07:00 07:00 Pulse 74 73 88 69 Resp 30 21 25 B/P (MAP) 117/74 (88) 110/80 (90) 126/73 (90) Pulse Ox 93 93 92 O2 Delivery Room Air Room Air Room Air 04/07/19 04/07/19 04/07/19 04/07/19 08:00 08:00 08:00 08:02 Temp 36.9 Pulse 76 Resp 24 B/P (MAP) 106/57 (73) 106/57 Pulse Ox 93 O2 Delivery Room Air Room Air 04/07/19 04/07/19 04/07/19 04/07/19 09:00 10:00 11:00 11:21 Pulse 67 94 87 Resp 30 15 12 B/P (MAP) 129/97 (108) 124/75 (91) 130/91 (104) Pulse Ox 95 96 94 O2 Delivery Room Air Room Air Room Air Room Air 04/07/19 04/07/19 04/07/19 04/07/19 12:00 12:05 12:27 13:00 Temp 36.2 Pulse 77 77 82 102 Resp 24 28 12 B/P (MAP) 113/55 (74) 118/66 (83) Pulse Ox 92 93 96 O2 Delivery Room Air Room Air 04/07/19 04/07/19 04/07/19 04/07/19 14:00 15:00 15:57 16:00 Temp 36.2 Pulse 98 82 78 Resp 32 28 30 B/P (MAP) 111/76 (88) 111/69 (83) 125/78 (94) Pulse Ox 94 94 94 O2 Delivery Room Air Room Air Room Air Capillary Refill : Less Than 3 Seconds Constitutional: appears stated age; No apparent distress; well-developed, well- nourished HEENT: PERRL; No discharge; hearing is well preserved, oral hygience is good; No ulceration, No xanthelasmas are seen Neck: No carotid bruit; carotid pulses are 2 + bilaterally Respiratory: chest is bilaterally symmetric, lungs clear to auscultation Cardiovascular: irregularly irregular, tachycardia, S1 and S2 Gastrointestinal: soft, round, audible bowel sounds; No spleenomegaly Rectal: deferred Extremities: normal range of motion, non-tender, normal inspection; No clubbing, No cyanosis; no lower extremity edema bilateral; No significant edema Neurologic/Psychiatric: no motor/sensory deficits, alert, normal mood/affect, oriented x 3, power is 5/5 both on sides Skin: normal color, warm/dry; No rash, No ulcerations Lymphatic: no adenopathy Data Review Labs Laboratory Tests 04/06/19 20:20: Troponin I < 0.028 04/07/19 01:55: Troponin I < 0.028, White Blood Count 7.0, Red Blood Count 4.48, Hemoglobin 13.3, Hematocrit 40, Mean Corpuscular Volume 89, Mean Corpuscular Hemoglobin 30, Mean Corpuscular Hemoglobin Concent 33, Red Cell Distribution Width 15.6H, Platelet Count 191, Mean Platelet Volume 10.4, Neutrophils (%) (Auto) 79H, Lymphocytes (%) (Auto) 13, Monocytes (%) (Auto) 8, Eosinophils (%) (Auto) 1, Basophils (%) (Auto) 0, Neutrophils # (Auto) 5.5, Lymphocytes # (Auto) 0.9L, Monocytes # (Auto) 0.5, Eosinophils # (Auto) 0.0, Basophils # (Auto) 0.0, Sodium Level 136, Potassium Level 3.7, Chloride Level 103, Carbon Dioxide Level 23, Anion Gap 10, Blood Urea Nitrogen 16, Creatinine 0.83, Estimat Glomerular Filtration Rate > 60, BUN/Creatinine Ratio 19, Glucose Level 284H, Calcium Level 9.1, Corrected Calcium 9.7, Total Bilirubin 0.8, Direct Bilirubin 0.5H, Indirect Bilirubin 0.3, Aspartate Amino Transf (AST/SGOT) 26, Alanine Aminotransferase (ALT/SGPT) 20, Alkaline Phosphatase 86, Total Protein 6.4, Albumin 3.2, Thyroid Stimulating Hormone (TSH) 1.12 04/07/19 07:55: Troponin I < 0.028 04/07/19 10:45: Glucometer 206H 04/07/19 15:43: Glucometer 279H Microbiology 04/06/19 Urine Culture - Preliminary, Resulted Klebsiella pneumoniae ECG Impression ECG Initial ECG Impression: Atrial Fibrillation w/RVR A/P-Cardiology Assessment/Admission Diagnosis Atrial fibrillation with rapid ventricular rate Plan Continue Eliquis, Cardizem infusion. We will add digoxin. IV amiodarone was given overnight however she developed an allergic reaction within 2 minutes therefore it was stopped. Thank you for your consultation. Please call me if you have any questions. Angelita Gonzalez MD, FACP, FACC, FSCAI, FHRS, CCDS Interventional Cardiology Cardiac Electrophysiology Vascular Medicine and Endovascular Interventions Clinical Quality Measures DVT/VTE Risk/Contraindication: Risk Factor Score Per Nursin RFS Level Per Nursing on Admit: 3=High Diya GONZALEZ MD Apr 07, 2019 14:14
[2019-04-07] MEDS: metFORMIN 500 MG (GLUCOPHAGE) TAB PO SCH (15:50)
[2019-04-07] MEDS ORDERED: NON-FORMULARY MEDICATION 1 EA EA (Metformin HCl 1,000 MG) PO SCH (21:00)
[2019-04-08] VITALS (16 sets, daily range): BP systolic 98–134; BP diastolic 68–106
[2019-04-08 05:28] LABS: BASOPHILS # (AUTO) 0.1 10^3/uL (0.0-0.1); BASOPHILS % (AUTO) 1 % (0-10); EOSINOPHILS # (AUTO) 0.2 10^3/uL (0.0-0.3); EOSINOPHILS % (AUTO) 3 % (0-10); HEMATOCRIT 38 % (35-52); HEMOGLOBIN 12.6 G/DL (11.5-16.0); LYMPHOCYTES # (AUTO) 1.7 X 10^3 (1.0-4.0); LYMPHOCYTES % (AUTO) 27 % (12-44); MEAN CORPUSCULAR HEMOGLOBIN 30 PG (25-34); MEAN CORPUSCULAR HGB CONC 33 G/DL (32-36); MEAN CORPUSCULAR VOLUME 89 FL (80-99); MEAN PLATELET VOLUME 10.2 FL (7.4-10.4); MONOCYTES # (AUTO) 0.6 X 10^3 (0.0-1.0); MONOCYTES % (AUTO) 9 % (0-12); NEUTROPHILS # (AUTO) 3.9 X 10^3 (1.8-7.8); NEUTROPHILS % (AUTO) 60 % (42-75); PLATELET COUNT 196 10^3/uL (130-400); RED CELL DISTRIBUTION WIDTH 15.7 % (10.0-14.5); WHITE BLOOD COUNT 6.4 10^3/uL (4.3-11.0)
[2019-04-08 05:46] LABS: ALANINE AMINOTRANSFERASE 21 U/L (0-55); ALBUMIN 3.1 GM/DL (3.2-4.5); ALKALINE PHOSPHATASE 75 U/L (40-136); BILIRUBIN,TOTAL 0.5 MG/DL (0.1-1.0); BUN/CREATININE RATIO 22; CARBON DIOXIDE 25 MMOL/L (21-32); CHLORIDE 103 MMOL/L (98-107); CREATININE SERUM 0.72 MG/DL (0.60-1.30); GFR ESTIMATED > 60; GLUCOSE 153 MG/DL (70-105); POTASSIUM 3.5 MMOL/L (3.6-5.0); SODIUM 136 MMOL/L (135-145); TOTAL PROTEIN 6.2 GM/DL (6.4-8.2)
[2019-04-08] MEDS: CATHETER FLUSH 10 ML SYR IV SCH ×3 (06:56→22:12)
[2019-04-08] MEDS: inSUlin ASPART (NovoLOG) 1 UNIT/0.01 ML (CHARGE PER UNIT) SQ SCH ×4 (06:57→19:49)
[2019-04-08] MEDS: APIXABAN 5 MG (ELIQUIS) TABLET PO SCH ×2 (07:51→19:49)
[2019-04-08] MEDS: DILTIAZEM IV FOR DRIP 125 MG in NS (IVPB) 100 ML IV SCH (07:53)
[2019-04-08] MEDS: MAGNESIUM 1 GM/100 ML IVPB 100 ML IV SCH ×2 (07:53→08:52)
[2019-04-08] MEDS ORDERED: cefTRIAXone FOR IV USE 1,000 MG in WATER (STERILE) FOR INJECTION 10 ML IV SCH (08:30)
[2019-04-08] MEDS ORDERED: KCL 20 MEQ TAB (K-DUR) PO NR (09:00)
[2019-04-08] MEDS ORDERED: NS IV 500 ML 500 ML IV ONE ×2 (12:30→14:45)
--- NOTE | 2019-04-08 12:56 | Cardiology Progress Note ---
Cardiology SOAP Progress Note Subjective: Irregular heart rhythm. Objective: I&O/Vital Signs 04/08/19 04/08/19 04/08/19 04/08/19 01:00 01:00 02:00 02:23 Pulse 84 90 73 81 Resp 24 25 23 B/P (MAP) 120/82 (95) Pulse Ox 92 94 93 O2 Delivery Room Air Room Air Room Air 04/08/19 04/08/19 04/08/19 04/08/19 03:00 03:24 04:00 04:00 Pulse 64 82 80 Resp 19 24 22 B/P (MAP) 127/69 (88) Pulse Ox 93 94 93 O2 Delivery Room Air Room Air Room Air Room Air 04/08/19 04/08/19 04/08/19 04/08/19 04:37 05:00 06:00 06:44 Pulse 84 85 87 96 Resp 16 22 21 26 B/P (MAP) 125/81 (96) 124/83 (97) Pulse Ox 93 93 93 96 O2 Delivery Room Air Room Air Room Air Room Air 04/08/19 04/08/19 04/08/19 04/08/19 07:00 07:53 08:00 08:00 Temp 36.4 Pulse 90 B/P (MAP) 124/83 O2 Delivery Room Air 04/08/19 04/08/19 04/08/19 04/08/19 09:00 11:45 12:00 12:17 Temp 36.6 Pulse 104 121 Resp 32 28 B/P (MAP) 98/85 (89) 104/78 (87) Pulse Ox 96 95 O2 Delivery Room Air Room Air Room Air 04/08/19 00:00 Intake Total 650 ml Balance 650 ml Weight (Pounds): 135 Weight (Ounces): 4.0 Weight (Calculated Kilograms): [id number] Constitutional: appears stated age; No apparent distress; well-developed, well- nourished Respiratory: chest is bilaterally symmetric, lungs clear to auscultation Cardiovascular: irregularly irregular, tachycardia, S1 and S2 Gastrointestional: soft, round, audible bowel sounds; No spleenomegaly Extremities: normal range of motion, non-tender, normal inspection; No club patricia, No cyanosis; no lower extremity edema bilateral; No significant edema Neurologic/Psychiatric: no motor/sensory deficits, alert, normal mood/affect, oriented x 3, power is 5/5 both on sides Skin: normal color, warm/dry; No rash, No ulcerations Results/Procedures: Labs Laboratory Tests 04/07/19 15:43: Glucometer 279H 04/07/19 19:40: Glucometer 145H 04/08/19 05:23: White Blood Count 6.4, Red Blood Count 4.26L, Hemoglobin 12.6, Hematocrit 38, Mean Corpuscular Volume 89, Mean Corpuscular Hemoglobin 30, Mean Corpuscular Hemoglobin Concent 33, Red Cell Distribution Width 15.7H, Platelet Count 196, Mean Platelet Volume 10.2, Neutrophils (%) (Auto) 60, Lymphocytes (%) (Auto) 27, Monocytes (%) (Auto) 9, Eosinophils (%) (Auto) 3, Basophils (%) (Auto) 1, Neutrophils # (Auto) 3.9, Lymphocytes # (Auto) 1.7, Monocytes # (Auto) 0.6, Eosinophils # (Auto) 0.2, Basophils # (Auto) 0.1, Sodium Level 136, Potassium Level 3.5L, Chloride Level 103, Carbon Dioxide Level 25, Anion Gap 8, Blood Urea Nitrogen 16, Creatinine 0.72, Estimat Glomerular Filtration Rate > 60, BUN/Creatinine Ratio 22, Glucose Level 153H, Calcium Level 9.0, Corrected Calcium 9.7, Magnesium Level 1.6, Total Bilirubin 0.5, Aspartate Amino Transf (AST/SGOT) 25, Alanine Aminotransferase (ALT/SGPT) 21, Alkaline Phosphatase 75, Total Protein 6.2L, Albumin 3.1L 04/08/19 11:16: Glucometer 232H Microbiology 04/07/19 MRSA Screen - Final, Complete MRSA not isolated 04/06/19 Urine Culture - Final, Complete Klebsiella pneumoniae A/P: Assessment/Dx: Atrial fibrillation with rapid ventricular rate Plan: Continue Eliquis, Cardizem infusion. Continues to be in atrial fibrillation. I discussed at length with the patient and family and recommended electrical cardioversion she's been on uninterrupted Eliquis for the last 30 days. There is still a 1 and 500 chance of TIA/CVA. Discussed with the patient and family and informed consent taken. Thank you for your consultation. Please call me if you have any questions. Angelita Gonzalez MD, FACP, FACC, FSCAI, FHRS, CCDS Interventional Cardiology Cardiac Electrophysiology Vascular Medicine and Endovascular Interventions Diya GONZALEZ MD Apr 08, 2019 12:56
[2019-04-08] MEDS ORDERED: LIDOCAINE 2% VISCOUS 15 ML UDC PO NR (12:57)
--- NOTE | 2019-04-08 14:05 | Progress Note ---
Subjective Subjective/Events-last exam Afebrile, remains in a fib with RVR in spite of diltiazem drip. Denies concerns, states she is feeling well. Objective Exam Last Set of Vital Signs Vital Signs Date Time Temp Pulse Resp B/P (MAP) Pulse Ox O2 Delivery O2 Flow Rate FiO2 04/08/19 12:17 Room Air 04/08/19 12:00 36.6 04/08/19 11:45 121 28 104/78 (87) 95 Capillary Refill : Less Than 3 Seconds I&O Intake and Output 04/08/19 00:00 Intake Total 1465 ml Balance 1465 ml Intake Oral 1340 ml IV Total 125 ml # Voids 7 # Urine Diapers 2 General: Alert, No Acute Distress Lungs: Clear to Auscultation, Normal Air Movement Heart: Other (tachycardic, irregular) Abdomen: Normal Bowel Sounds, Soft Neuro: Normal Speech Results/Procedures Lab Laboratory Tests 04/07/19 15:43: Glucometer 279H 04/07/19 19:40: Glucometer 145H 04/08/19 05:23: White Blood Count 6.4, Red Blood Count 4.26L, Hemoglobin 12.6, Hematocrit 38, Mean Corpuscular Volume 89, Mean Corpuscular Hemoglobin 30, Mean Corpuscular Hemoglobin Concent 33, Red Cell Distribution Width 15.7H, Platelet Count 196, Mean Platelet Volume 10.2, Neutrophils (%) (Auto) 60, Lymphocytes (%) (Auto) 27, Monocytes (%) (Auto) 9, Eosinophils (%) (Auto) 3, Basophils (%) (Auto) 1, Neutrophils # (Auto) 3.9, Lymphocytes # (Auto) 1.7, Monocytes # (Auto) 0.6, Eosinophils # (Auto) 0.2, Basophils # (Auto) 0.1, Sodium Level 136, Potassium Level 3.5L, Chloride Level 103, Carbon Dioxide Level 25, Anion Gap 8, Blood Urea Nitrogen 16, Creatinine 0.72, Estimat Glomerular Filtration Rate > 60, BU N/Creatinine Ratio 22, Glucose Level 153H, Calcium Level 9.0, Corrected Calcium 9.7, Magnesium Level 1.6, Total Bilirubin 0.5, Aspartate Amino Transf (AST/SGOT) 25, Alanine Aminotransferase (ALT/SGPT) 21, Alkaline Phosphatase 75, Total Protein 6.2L, Albumin 3.1L 04/08/19 11:16: Glucometer 232H Microbiology 04/07/19 MRSA Screen - Final, Complete MRSA not isolated 04/06/19 Urine Culture - Final, Complete Klebsiella pneumoniae Assessment/Plan Assessment/Plan Assessment & Plan Assessment: 1. A-fib 2. Hx of DM, HTN, macular degeneration Plan: 1. Cardiology is consulted. Planning to medically cardiovert now. Will refer to Cardiology for plan. 2. Continue home medications. (1) Atrial fibrillation with rapid ventricular response Status: Acute Assessment & Plan: Started on cardizem drip, Cardiology consulted, appreciate recommendations. Had reaction to amiodarone overnight and it was stopped. 04/08 plan for cardioversion this pm (2) Hypertension Status: Acute Qualifiers: Qualified Codes: I10 - Essential (primary) hypertension (3) Diabetes Status: Chronic Assessment & Plan: Resume home metformin, hold home prn glimeperide. Diabetic diet, sliding scale insulin. Qualifiers: (4) Urinary tract infection Status: Acute Assessment & Plan: Urine cx with >100,000 klebsiella, start ceftriaxone and follow up culture. (5) DVT prophylaxis Status: Acute Assessment & Plan: On apixaban Clinical Quality Measures DVT/VTE Risk/Contraindication: Risk Factor Score Per Nursin RFS Level Per Nursing on Admit: 3=High DAIJA MCKENO MD Apr 08, 2019 14:05
[2019-04-08] MEDS: metFORMIN 500 MG (GLUCOPHAGE) TAB PO SCH (16:09)
[2019-04-08] MEDS: ceFAZolin INJECTION 500 MG in NS (IVPB) 50 ML IV SCH (22:12)
[2019-04-09] VITALS (18 sets, daily range): BP systolic 98–157; BP diastolic 66–123
[2019-04-09 03:08] LABS: BASOPHILS # (AUTO) 0.1 10^3/uL (0.0-0.1); BASOPHILS % (AUTO) 1 % (0-10); EOSINOPHILS # (AUTO) 0.1 10^3/uL (0.0-0.3); EOSINOPHILS % (AUTO) 2 % (0-10); HEMATOCRIT 38 % (35-52); HEMOGLOBIN 12.6 G/DL (11.5-16.0); LYMPHOCYTES # (AUTO) 1.6 X 10^3 (1.0-4.0); LYMPHOCYTES % (AUTO) 29 % (12-44); MEAN CORPUSCULAR HEMOGLOBIN 30 PG (25-34); MEAN CORPUSCULAR HGB CONC 33 G/DL (32-36); MEAN CORPUSCULAR VOLUME 89 FL (80-99); MEAN PLATELET VOLUME 10.4 FL (7.4-10.4); MONOCYTES # (AUTO) 0.6 X 10^3 (0.0-1.0); MONOCYTES % (AUTO) 11 % (0-12); NEUTROPHILS # (AUTO) 3.1 X 10^3 (1.8-7.8); NEUTROPHILS % (AUTO) 57 % (42-75); PLATELET COUNT 176 10^3/uL (130-400); RED CELL DISTRIBUTION WIDTH 15.4 % (10.0-14.5); WHITE BLOOD COUNT 5.5 10^3/uL (4.3-11.0)
[2019-04-09 03:26] LABS: ALANINE AMINOTRANSFERASE 20 U/L (0-55); ALBUMIN 3.1 GM/DL (3.2-4.5); ALKALINE PHOSPHATASE 75 U/L (40-136); BILIRUBIN,TOTAL 0.4 MG/DL (0.1-1.0); BUN/CREATININE RATIO 18; CALCIUM 8.5 MG/DL (8.5-10.1); CARBON DIOXIDE 23 MMOL/L (21-32); CHLORIDE 105 MMOL/L (98-107); CREATININE SERUM 0.73 MG/DL (0.60-1.30); GFR ESTIMATED > 60; GLUCOSE 170 MG/DL (70-105); POTASSIUM 3.6 MMOL/L (3.6-5.0); SODIUM 136 MMOL/L (135-145); TOTAL PROTEIN 5.9 GM/DL (6.4-8.2)
[2019-04-09] MEDS: inSUlin ASPART (NovoLOG) 1 UNIT/0.01 ML (CHARGE PER UNIT) SQ SCH ×3 (04:36→16:02)
[2019-04-09] MEDS: CATHETER FLUSH 10 ML SYR IV SCH ×2 (05:19→14:01)
[2019-04-09] MEDS: ceFAZolin INJECTION 500 MG in NS (IVPB) 50 ML IV SCH ×2 (05:19→13:55)
[2019-04-09] MEDS ORDERED: KCL 20 MEQ TAB (K-DUR) PO SCH (06:00)
[2019-04-09] MEDS ORDERED: MAGNESIUM 1 GM/100 ML IVPB 100 ML IV SCH (06:00)
[2019-04-09] MEDS ORDERED: POTASSIUM CL 10MEQ/50ML IVPB 50 ML IV SCH (06:00)
[2019-04-09] MEDS: DILTIAZEM IV FOR DRIP 125 MG in NS (IVPB) 100 ML IV SCH (07:31)
[2019-04-09] MEDS: APIXABAN 5 MG (ELIQUIS) TABLET PO SCH (08:37)
[2019-04-09] MEDS ORDERED: NS IV 500 ML 500 ML IV ONE (09:00)
[2019-04-09] MEDS ORDERED: KCL 20 MEQ TAB (K-DUR) PO NR (09:00)
[2019-04-09] MEDS ORDERED: LIDOCAINE 2% VISCOUS 15 ML UDC PO ONE (09:00)
--- NOTE | 2019-04-09 09:18 | Cardiology Progress Note ---
Cardiology SOAP Progress Note Subjective: No cardiac complaints Objective: I&O/Vital Signs 04/08/19 04/08/19 04/09/19 04/09/19 22:00 23:06 00:00 00:00 Pulse 98 92 70 Resp 11 22 20 B/P (MAP) 108/90 (96) 115/68 (84) 98/67 (77) Pulse Ox 94 93 92 O2 Delivery Room Air Room Air Room Air Room Air 04/09/19 04/09/19 04/09/19 04/09/19 01:50 01:51 02:00 03:18 Pulse 85 77 91 92 Resp 21 19 21 B/P (MAP) 113/85 (94) 107/76 (86) 130/80 (97) Pulse Ox 93 93 92 O2 Delivery Room Air Room Air Room Air 04/09/19 04/09/19 04/09/19 04/09/19 04:00 04:00 05:23 06:53 Pulse 80 77 98 Resp 29 25 21 B/P (MAP) 115/84 (94) 125/72 (89) 114/73 (87) Pulse Ox 93 93 94 O2 Delivery Room Air Room Air Room Air Room Air 04/09/19 04/09/19 07:00 07:31 Pulse 92 B/P (MAP) 116/72 04/09/19 00:00 Intake Total 1035 ml Balance 1035 ml Weight (Pounds): 135 Weight (Ounces): 4.0 Weight (Calculated Kilograms): [id number] Constitutional: appears stated age; No apparent distress; well-developed, well- nourished Respiratory: chest is bilaterally symmetric, lungs clear to auscultation Cardiovascular: irregularly irregular, tachycardia, S1 and S2 Gastrointestional: soft, round, audible bowel sounds; No spleenomegaly Extremities: normal range of motion, non-tender, normal inspection; No clubbing, No cyanosis; no lower extremity edema bilateral; No significant edema Neurologic/Psychiatric: no motor/sensory deficits, alert, normal mood/affect, oriented x 3, power is 5/5 both on sides Skin: normal color, warm/dry; No rash, No ulcerations Results/Procedures: Labs Laboratory Tests 04/08/19 11:16: Glucometer 232H 04/08/19 16:02: Glucometer 243H 04/08/19 19:19: Glucometer 128H 04/09/19 02:47: White Blood Count 5.5, Red Blood Count 4.25L, Hemoglobin 12.6, Hematocrit 38, Mean Corpuscular Volume 89, Mean Corpuscular Hemoglobin 30, Mean Corpuscular Hemoglobin Concent 33, Red Cell Distribution Width 15.4H, Platelet Count 176, Mean Platelet Volume 10.4, Neutrophils (%) (Auto) 57, Lymphocytes (%) (Auto) 29, Monocytes (%) (Auto) 11, Eosinophils (%) (Auto) 2, Basophils (%) (Auto) 1, Neutrophils # (Auto) 3.1, Lymphocytes # (Auto) 1.6, Monocytes # (Auto) 0.6, Eosinophils # (Auto) 0.1, Basophils # (Auto) 0.1, Sodium Level 136, Potassium Level 3.6, Chloride Level 105, Carbon Dioxide Level 23, Anion Gap 8, Blood Urea Nitrogen 13, Creatinine 0.73, Estimat Glomerular Filtration Rate > 60, BUN/Creatinine Ratio 18, Glucose Level 170H, Calcium Level 8.5, Corrected Calcium 9.2, Magnesium Level 1.9, Total Bilirubin 0.4, Aspartate Amino Transf (AST/SGOT) 34, Alanine Aminotransferase (ALT/SGPT) 20, Alkaline Phosphatase 75, Total Protein 5.9L, Albumin 3.1L Microbiology 04/07/19 MRSA Screen - Final, Complete MRSA not isolated 04/06/19 Urine Culture - Final, Complete Klebsiella pneumoniae A/P: Assessment/Dx: Atrial fibrillation with rapid ventricular rate Plan: Continue Eliquis, Cardizem infusion. Continues to be in atrial fibrillation. I discussed at length with the patient and family and recommended electrical cardioversion she's been on uninterrupted Eliquis for the last 30 days. There is still a 1 and 500 chance of TIA/CVA. Discussed with the patient and family and informed consent taken. Cardioversion will be done 04/09/2019. Thank you for your consultation. Please call me if you have any questions. Angelita Gonzalez MD, FACP, FACC, FSCAI, FHRS, CCDS Interventional Cardiology Cardiac Electrophysiology Vascular Medicine and Endovascular Interventions Diya GONZALEZ MD Apr 09, 2019 9:18 am
--- NOTE | 2019-04-09 09:55 | NUR ---
Cardioversion performed by dr garcía. 200 joules shocked delivered at 0945. CAMERON Carlin recovering patient at this time.
--- NOTE | 2019-04-09 11:30 | Anesthesia-Procedure Note ---
Procedures/Interventions Procedure Start/Stop/Diagnosis Date of Procedure: Apr 09, 2019 Start Time: 09:42 Referring Physician: Lisa Preprocedural Diagnosis: a fib Brief History Called to ICU 5 for Cardioversion. Total of 50 mg Propofol IV given for se dation. Patient tolerated well. O2/NC with etco2 monitoring. Stop Time: 09:50 Postprocedural Diagnosis: HAYDER MIDDLETON CRNA Apr 09, 2019 11:30
--- NOTE | 2019-04-09 13:10 | Progress Note ---
Subjective Subjective/Events-last exam Afebrile, had cardioversion this am, denies concerns. Objective Exam Last Set of Vital Signs Vital Signs Date Time Temp Pulse Resp B/P (MAP) Pulse Ox O2 Delivery O2 Flow Rate FiO2 04/09/19 12:00 36.1 04/09/19 12:00 79 15 153/76 (101) 98 Room Air Capillary Refill : Less Than 3 Seconds I&O Intake and Output 04/09/19 00:00 Intake Total 1360 ml Balance 1360 ml Intake Oral 980 ml IV Total 380 ml # Urine Diapers 12 General: Alert, No Acute Distress Lungs: Clear to Auscultation, Normal Air Movement Heart: Regular Rate, No Murmurs Abdomen: Normal Bowel Sounds, Soft, No Tenderness Extremities: No Edema Neuro: Normal Speech Psych/Mental Status: Mood NL Results/Procedures Lab Laboratory Tests 04/08/19 16:02: Glucometer 243H 04/08/19 19:19: Glucometer 128H 04/09/19 02:47: White Blood Count 5.5, Red Blood Count 4.25L, Hemoglobin 12.6, Hematocrit 38, Mean Corpuscular Volume 89, Mean Corpuscular Hemoglobin 30, Mean Corpuscular Hemoglobin Concent 33, Red Cell Distribution Width 15.4H, Platelet Count 176, Mean Platelet Volume 10.4, Neutrophils (%) (Auto) 57, Lymphocytes (%) (Auto) 29, Monocytes (%) (Auto) 11, Eosinophils (%) (Auto) 2, Basophils (%) (Auto) 1, Neutrophils # (Auto) 3.1, Lymphocytes # (Auto) 1.6, Monocytes # (Auto) 0.6, Eosinophils # (Auto) 0.1, Basophils # (Auto) 0.1, Sodium Level 136, Potassium Level 3.6, Chloride Level 105, Carbon Dioxide Level 23, Anion Gap 8, Blood Urea Nitrogen 13, Creatinine 0.73, Estimat Glomerular Filtration Rate > 60, BUN/Creatinine Ratio 18, Glucose Level 170H, Calcium Level 8.5, Corrected Calcium 9.2, Magnesium Level 1.9, Total Bilirubin 0.4, Aspartate Amino Transf (AST/SGOT) 34, Alanine Aminotransferase (ALT/SGPT) 20, Alkaline Phosphatase 75, Total Protein 5.9L, Albumin 3.1L 04/09/19 11:11: Glucometer 159H Microbiology 04/07/19 MRSA Screen - Final, Complete MRSA not isolated 04/06/19 Urine Culture - Final, Complete Klebsiella pneumoniae Assessment/Plan Assessment/Plan Assessment & Plan Assessment: 1. A-fib 2. Hx of DM, HTN, macular degeneration Plan: 1. Cardiology is consulted. Planning to medically cardiovert now. Will refer to Cardiology for plan. 2. Continue home medications. (1) Atrial fibrillation with rapid ventricular response Status: Acute Assessment & Plan: Started on cardizem drip, Cardiology consulted, appreciate recommendations. Had reaction to amiodarone overnight and it was stopped. 04/08 plan for cardioversion this pm 04/09 cardioversion this am, monitor post cardioversion per Dr. Gonzalez recommendations. (2) Hypertension Status: Acute Qualifiers: Qualified Codes: I10 - Essential (primary) hypertension (3) Diabetes Status: Chronic Assessment & Plan: Resume home metformin, hold home prn glimeperide. Diabetic diet, sliding scale insulin. Qualifiers: (4) Urinary tract infection Status: Acute Assessment & Plan: Urine cx with >100,000 klebsiella, start ceftriaxone and follow up culture. Changed to cefazolin per sensitivities. (5) DVT prophylaxis Status: Acute Assessment & Plan: On apixaban Clinical Quality Measures DVT/VTE Risk/Contraindication: Risk Factor Score Per Nursin RFS Level Per Nursing on Admit: 3=High DAIJA MCKEON MD Apr 09, 2019 13:10
[2019-04-09] MEDS ORDERED: proPOfol 200 MG/20 ML (DIPRIVAN) VIAL IV ONE (14:14)
--- NOTE | 2019-04-09 14:47 | Discharge Summary ---
Discharge Summary Hospital Course Problems/Diagnosis: (1) Atrial fibrillation with rapid ventricular response Status: Acute Assessment & Plan: Started on cardizem drip, Cardiology consulted, appreciate recommendations. Had reaction to amiodarone overnight and it was stopped. 04/08 plan for cardioversion this pm 04/09 cardioversion this am with good success, d/c on home cardizem. (2) Hypertension Status: Acute Qualifiers: Qualified Codes: I10 - Essential (primary) hypertension (3) Diabetes Status: Chronic Assessment & Plan: Resume home metformin, held home prn glimeperide during hospital stay. Diabetic diet, sliding scale insulin. Qualifiers: (4) Urinary tract infection Status: Acute Assessment & Plan: Urine cx with >100,000 klebsiella, start ceftriaxone and follow up culture. Changed to cefazolin per sensitivities. Cephalexin x 3 days on d/c, treated for 2 days inpatient. Hospital Course Date of Admission: Apr 06, 2019 at 15:48 Admission Diagnosis : Family Physician/Provider: Charla Estrada MD Date of Discharge: 04/09/19 Discharge Diagnosis: See problems Hospital Course: See problems Labs and Pending Lab Test: Laboratory Tests 04/08/19 16:02: Glucometer 243H 04/08/19 19:19: Glucometer 128H 04/09/19 02:47: White Blood Count 5.5, Red Blood Count 4.25L, Hemoglobin 12.6, Hematocrit 38, Mean Corpuscular Volume 89, Mean Corpuscular Hemoglobin 30, Mean Corpuscular Hemoglobin Concent 33, Red Cell Distribution Width 15.4H, Platelet Count 176, Mean Platelet Volume 10.4, Neutrophils (%) (Auto) 57, Lymphocytes (%) (Auto) 29, Monocytes (%) (Auto) 11, Eosinophils (%) (Auto) 2, Basophils (%) (Auto) 1, Neutrophils # (Auto) 3.1, Lymphocytes # (Auto) 1.6, Monocytes # (Auto) 0.6, Eosinophils # (Auto) 0.1, Basophils # (Auto) 0.1, Sodium Level 136, Potassium Level 3.6, Chloride Level 105, Carbon Dioxide Level 23, Anion Gap 8, Blood Urea Nitrogen 13, Creatinine 0.73, Estimat Glomerular Filtration Rate > 60, BUN/Creatinine Ratio 18, Glucose Level 170H, Calcium Level 8.5, Corrected Calcium 9.2, Magnesium Level 1.9, Total Bilirubin 0.4, Aspartate Amino Transf (AST/SGOT) 34, Alanine Aminotransferase (ALT/SGPT) 20, Alkaline Phosphatase 75, Total Protein 5.9L, Albumin 3.1L 04/09/19 11:11: Glucometer 159H Microbiology 04/07/19 MRSA Screen - Final, Complete MRSA not isolated 04/06/19 Urine Culture - Final, Complete Klebsiella pneumoniae Home Meds Active Reported Diltiazem 24Hr Cd (Diltiazem HCl) 120 Mg Cap.er.24h 120 Mg PO BID Eliquis (Apixaban) 5 Mg Tablet 5 Mg PO BID Glimepiride 4 Mg Tablet 2 Mg PO DAILY PRN Cyanocobalamin Injection (Cyanocobalamin) 1,000 Mcg/Ml Inj 1,000 Mcg IM MONTHLY Metformin HCl 1,000 Mg Tablet 1,000 Mg PO HS Assessment/Pt DC Instructions Follow up with Dr. Estrada on 04/14 on 10:30 am. Discharge Diet: ADA Diet Activity as Tolerated: Yes Discharge Physical Examination Allergies: Coded Allergies: amiodarone (Verified Allergy, Unknown, 04/07/19) ciprofloxacin (Verified Allergy, Unknown, 01/02/19) codeine (Verified Allergy, Unknown, 01/02/19) lisinopril (Verified Allergy, Unknown, 01/02/19) sulfamethoxazole (Verified Allergy, Unknown, 01/02/19) trimethoprim (Verified Allergy, Unknown, 01/02/19) General Appearance: No Apparent Distress Respiratory: Lungs Clear Cardiovascular: Regular Rate, Rhythm, No Edema, No Murmur Extremity: No Pedal Edema Skin: Normal Color, Warm/Dry Neurologic/Psychiatric: Alert Copy Copies To 1: CHARLA ESTRADA MD Discharge Summary Date of Admission Apr 06, 2019 at 15:48 Date of Discharge Clinical Quality Measures DVT/VTE Risk/Contraindication: Risk Factor Score Per Nursin RFS Level Per Nursing on Admit: 3=High DAIJA MCKEON MD Apr 09, 2019 14:47
[2019-04-09] MEDS ORDERED: CEPH500C PO (14:48)
[2019-04-09] MEDS: metFORMIN 500 MG (GLUCOPHAGE) TAB PO SCH (16:01)
--- NOTE | 2019-04-09 20:25 | Anesthesia-General Post-Op ---
MAC Patient Condition Mental Status/LOC: Same as Preop Cardiovascular: Satisfactory Nausea/Vomiting: Absent Respiratory: Satisfactory Pain: Controlled Complications: Absent Post Op Complications Complications None Follow Up Care/Instructions Patient Instructions None needed. Anesthesiology Discharge Order Discharge Order Patient is doing well, no complaints, stable vital signs, no apparent adverse anesthesia problems. No complications reported per nursing. PJ VALDEZ CRNA Apr 09, 2019 20:25
[2019-04-09] MEDS ORDERED: DILTIAZEM 120 MG (CARDIZEM CD) CAP PO SCH (21:00)
[2019-04-09] MEDS ORDERED: DILTIAZEM 60 MG (CARDIZEM) TAB PO SCH (21:00)
== END 2019-04-09 16:31 | disposition home or self-care (01) | DRG 309 ==
LOC: EDUNIT# 14:16 → ER FS 14:19 → ICU 15:48
PROVIDERS: ADMIT Family Medicine; ATTEND Family Medicine
PROC: 5A2204Z Restoration of Cardiac Rhythm, Single (ICD-10-PCS; principal; 2019-04-09)
DX: I48.19 Other persistent atrial fibrillation (principal); N39.0 Urinary tract infection, site not specified; I10 Essential (primary) hypertension; E78.5 Hyperlipidemia, unspecified; E11.9 Type 2 diabetes mellitus without complications; H35.30 Unspecified macular degeneration; T46.2X5A Adverse effect of other antidysrhythmic drugs, initial encounter; B96.1 Klebsiella pneumoniae [K. pneumoniae] as the cause of diseases classified elsewhere; Z79.01 Long term (current) use of anticoagulants; Z79.84 Long term (current) use of oral hypoglycemic drugs
CPT/HCPCS: 36415; 71045; 80053; 80076; 81000; 82962; 83735; 84443; 84484; 85025; 85027; 85610; 85730; 87077; 87081; 87088; 87186; 93005; 93306; 96365; 96366

== ENCOUNTER 2019-04-10 15:31 | Day surgery (SDC) | payer MEDICARE, MEDICAID ==
[~2019-04-10] VITALS: Ht 167.7 cm; Wt 61.0 kg
[~2019-04-10 15:31] MED LIST changes: +CEPH500C PO
[2019-04-10] MEDS ORDERED: NS IV 500 ML 500 ML IV ONE (15:44)
[2019-04-10] MEDS ORDERED: ASPIRIN 81 MG CHEW (CHILDREN'S ASA) PO ONE (15:45)
[2019-04-10] MEDS ORDERED: fentaNYL INJECTION 100 MCG/2 ML AMP IVP ONE (15:45)
--- NOTE | 2019-04-10 15:51 | ED Chest Pain ---
General Stated Complaint: CHEST PAIN Source: patient History of Present Illness Date Seen by Provider: Apr 10, 2019 Time Seen by Provider: 15:40 Initial Comments 83-year-old female presents with left-sided chest pain. Patient is difficult to obtain a history from. Patient told the nurses a started around noon however she told me it started yesterday on her way back from [facility]. Patient had a cardioversion yesterday for atrial flutter with RVR. Patient is very nonspecific in her chest pain just points to her lower left side of her chest. Patient doesn't report any nausea, vomiting, diaphoresis or shortness of breath however she is very limited in what she tells us.. Allergies and Home Medications Allergies Coded Allergies: amiodarone (Verified Allergy, Unknown, 04/07/19) ciprofloxacin (Verified Allergy, Unknown, 01/02/19) codeine (Verified Allergy, Unknown, 01/02/19) lisinopril (Verified Allergy, Unknown, 01/02/19) sulfamethoxazole (Verified Allergy, Unknown, 01/02/19) trimethoprim (Verified Allergy, Unknown, 01/02/19) Home Medications Apixaban 5 Mg Tablet, 5 MG PO BID, (Reported) Cephalexin 500 Mg Capsule, 500 MG PO BID Prescribed by: DAIJA MCKEON on 04/09/19 1448 Cyanocobalamin 1,000 Mcg/Ml Inj, 1,000 MCG IM MONTHLY, (Reported) Diltiazem HCl 120 Mg Cap.er.24h, 120 MG PO BID, (Reported) Glimepiride 4 Mg Tablet, 2 MG PO DAILY PRN for BS>160, (Reported) Metformin HCl 1,000 Mg Tablet, 1,000 MG PO HS, (Reported) Patient Home Medication List Home Medication List Reviewed: Yes Review of Systems Review of Systems Constitutional: No chills, No fever Respiratory: Denies Cough, Denies Shortness of Air Cardiovascular: Chest Pain Gastrointestinal: No Symptoms Reported Skin: no symptoms reported Past Hiylojq-Mygpke-Klzbqa Hx Past Med/Social Hx: Reviewed Nursing Past Med/Soc Hx Patient Social History 2nd Hand Smoke Exposure: No Recent Foreign Travel: No Contact w/Someone Who Travel: No Recent Hopitalizations: No Immunizations Up To Date Date of Pneumonia Vaccine: Mar 08, 2017 Date of Influenza Vaccine: Apr 02, 2019 Seasonal Allergies Seasonal Allergies: No Past Medical History Surgeries: Yes (LINQ placement left chest) Hysterectomy Respiratory: No Cardiac: Yes Atrial Fibrillation, Hypertension Neurological: No Genitourinary: Yes Bladder Infection Gastrointestinal: No Musculoskeletal: No Endocrine: Yes Diabetes, Non-Insulin dep HEENT: No Cancer: No Psychosocial: No Integumentary: No Blood Disorders: No Family Medical History No Pertinent Family Hx, Cancer Physical Exam Vital Signs Vital Signs - First Documented Capillary Refill : Height, Weight, BMI Height: 5'8.00" Weight: 135lbs. 4.0oz. [id number]; 22.00 BMI Method:Stated General Appearance: Cachetic HEENT: PERRL/EOMI Respiratory: Lungs Clear, Normal Breath Sounds Cardiovascular: No Edema, Normal Peripheral Pulses, Tachycardia Neurologic/Psychiatric: Alert, Depressed Affect Skin: Normal Color, Warm/Dry Progress/Results/Core Measures Results/Orders Lab Results Laboratory Tests Test 04/10/19 16:03 Range/Units White Blood Count 7.0 4.3-11.0 10^3/uL Red Blood Count 4.80 4.35-5.85 10^6/uL Hemoglobin 14.3 11.5-16.0 G/DL Hematocrit 44 35-52 % Mean Corpuscular Volume 91 80-99 FL Mean Corpuscular Hemoglobin 30 25-34 PG Mean Corpuscular Hemoglobin Concent 33 32-36 G/DL Red Cell Distribution Width 15.3 H 10.0-14.5 % Platelet Count 229 130-400 10^3/uL Mean Platelet Volume 10.3 7.4-10.4 FL Neutrophils (%) (Auto) 71 42-75 % Lymphocytes (%) (Auto) 21 12-44 % Monocytes (%) (Auto) 6 0-12 % Eosinophils (%) (Auto) 1 0-10 % Basophils (%) (Auto) 0 0-10 % Neutrophils # (Auto) 4.9 1.8-7.8 X 10^3 Lymphocytes # (Auto) 1.5 1.0-4.0 X 10^3 Monocytes # (Auto) 0.4 0.0-1.0 X 10^3 Eosinophils # (Auto) 0.1 0.0-0.3 10^3/uL Basophils # (Auto) 0.0 0.0-0.1 10^3/uL Prothrombin Time 18.1 H 12.2-14.7 SEC INR Comment 1.4 0.8-1.4 Activated Partial Thromboplast Time 32 24-35 SEC Sodium Level 132 L 135-145 MMOL/L Potassium Level 4.3 3.6-5.0 MMOL/L Chloride Level 95 L 98-107 MMOL/L Carbon Dioxide Level 26 21-32 MMOL/L Anion Gap 11 5-14 MMOL/L Blood Urea Nitrogen 11 7-18 MG/DL Creatinine 0.61 0.60-1.30 MG/DL Estimat Glomerular Filtration Rate > 60 BUN/Creatinine Ratio 18 Glucose Level 221 H 70-105 MG/DL Calcium Level 9.7 8.5-10.1 MG/DL Corrected Calcium 9.9 8.5-10.1 MG/DL Magnesium Level 1.8 1.6-2.4 MG/DL Total Bilirubin 0.5 0.1-1.0 MG/DL Aspartate Amino Transf (AST/SGOT) 47 H 5-34 U/L Alanine Aminotransferase (ALT/SGPT) 21 0-55 U/L Alkaline Phosphatase 86 40-136 U/L Troponin I 0.88 *H <0.30 NG/ML Total Protein 7.7 6.4-8.2 GM/DL Albumin 3.7 3.2-4.5 GM/DL Lipase 16 8-78 U/L My Orders Orders - SANCHEZ,MAYITO L DO Cbc With Automated Diff (04/10/19 15:44) Magnesium (04/10/19 15:44) Chest 1 View Ap/Pa Only (04/10/19 15:44) Ekg Tracing (04/10/19 15:44) Comprehensive Metabolic Panel (04/10/19 15:44) Protime With Inr (04/10/19 15:44) Partial Thromboplastin Time (04/10/19 15:44) Monitor-Rhythm Ecg Trace Only (04/10/19 15:44) Aspirin Chewable Tablet (Baby Aspirin Ch (04/10/19 15:45) Ed Iv/Invasive Line Start (04/10/19 15:44) Lipase (04/10/19 15:44) Troponin I Fs (04/10/19 15:44) Ed Iv/Invasive Line Start (04/10/19 15:44) Ns Iv 500 Ml (Sodium Chloride 0.9%) (04/10/19 15:44) Fentanyl Injection (Sublimaze Injection (04/10/19 15:45) Ekg Tracing (04/10/19 16:35) Enoxaparin Injection (Lovenox Injection) (04/10/19 17:00) Medications Given in ED Current Medications Medications Dose Ordered Sig/Annetta Route Start Time Stop Time Status Last Admin Dose Admin Aspirin 324 mg ONCE ONCE PO 04/10/19 15:45 04/10/19 15:46 DC 04/10/19 16:11 324 MG Fentanyl Citrate 12.5 mcg ONCE ONCE IVP 04/10/19 15:45 04/10/19 15:46 DC 04/10/19 16:11 12.5 MCG Sodium Chloride 500 ml @ 0 mls/hr Q0M ONCE IV 04/10/19 15:44 04/10/19 15:45 DC 04/10/19 16:11 0 MLS/HR Vital Signs/I&O 04/10/19 04/10/19 15:35 15:35 Temp 36.0 Pulse 112 Resp 40 B/P (MAP) 139/80 (99) Pulse Ox 95 O2 Delivery Room Air Room Air Progress Progress Note : Time: 16:59 Progress Note Patient reports chest pain has improved. Patient with very slight elevation in her troponin likely due to her cardioversion yesterday. However I did call and discuss with Dr. 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 Patient was accepted by Dr. Lackey. Patient is stable and is transferred in stable condition. Departure Impression Primary Impression: Chest pain Qualified Codes: R07.9 - Chest pain, unspecified Additional Impression: Elevated troponin Disposition: SHT-TRM HOSP Condition: Stable Transfer Time Spoke to Accepting Phy: 17:01 Transfer Progress Notes Patient will be given Lovenox 1 mg/kgr injection as discussed with Dr. Garcia. Patient will then be transferred to [facility] for observation and serial troponins. Patient is transferred in stable condition Method of Transfer: EMS Departure-Patient Inst. Referrals: CHARLA SAHA MD (PCP/Family) Primary Care Physician MAYITO SANCHEZ DO Apr 10, 2019 15:51
--- NOTE | 2019-04-10 16:19 | Diagnostic Imaging Report ---
PATIENT HISTORY: Chest pain. TECHNIQUE: A single frontal view of the chest. COMPARISON: 04/06/2019. FINDINGS: Patient is rotated to the right. There is mild cardiomegaly. Interstitial markings appear more prominent compared to the prior exam. No pleural effusion or pneumothorax is seen. IMPRESSION: 1. Increasing interstitial opacities since the prior study, may represent an interstitial edema. There is mild cardiomegaly. Dictated by: Dictated on workstation # [id number]
[2019-04-10 16:29] LABS: INR 1.4 (0.8-1.4); PROTHROMBIN TIME PATIENT 18.1 SEC (12.2-14.7)
[2019-04-10 16:30] LABS: BASOPHILS % (AUTO) 0 % (0-10); EOSINOPHILS # (AUTO) 0.1 10^3/uL (0.0-0.3); EOSINOPHILS % (AUTO) 1 % (0-10); HEMATOCRIT 44 % (35-52); HEMOGLOBIN 14.3 G/DL (11.5-16.0); LYMPHOCYTES # (AUTO) 1.5 X 10^3 (1.0-4.0); LYMPHOCYTES % (AUTO) 21 % (12-44); MEAN CORPUSCULAR HEMOGLOBIN 30 PG (25-34); MEAN CORPUSCULAR HGB CONC 33 G/DL (32-36); MEAN CORPUSCULAR VOLUME 91 FL (80-99); MEAN PLATELET VOLUME 10.3 FL (7.4-10.4); MONOCYTES # (AUTO) 0.4 X 10^3 (0.0-1.0); MONOCYTES % (AUTO) 6 % (0-12); NEUTROPHILS # (AUTO) 4.9 X 10^3 (1.8-7.8); NEUTROPHILS % (AUTO) 71 % (42-75); PLATELET COUNT 229 10^3/uL (130-400); RED CELL DISTRIBUTION WIDTH 15.3 % (10.0-14.5)
[2019-04-10 16:32] LABS: ALANINE AMINOTRANSFERASE 21 U/L (0-55); ALBUMIN 3.7 GM/DL (3.2-4.5); ALKALINE PHOSPHATASE 86 U/L (40-136); BILIRUBIN,TOTAL 0.5 MG/DL (0.1-1.0); BUN/CREATININE RATIO 18; CALCIUM 9.7 MG/DL (8.5-10.1); CARBON DIOXIDE 26 MMOL/L (21-32); CHLORIDE 95 MMOL/L (98-107); CREATININE SERUM 0.61 MG/DL (0.60-1.30); GFR ESTIMATED > 60; GLUCOSE 221 MG/DL (70-105); LIPASE 16 U/L (8-78); MAGNESIUM 1.8 MG/DL (1.6-2.4); POTASSIUM 4.3 MMOL/L (3.6-5.0); SODIUM 132 MMOL/L (135-145); TOTAL PROTEIN 7.7 GM/DL (6.4-8.2)
[2019-04-10] MEDS ORDERED: ENOXAPARIN 60 MG/0.6 ML (LOVENOX) SYR SC ONE (17:00)
[2019-04-10 19:05] VITALS: BP 101/57
[2019-04-10] MEDS ORDERED: CATHETER FLUSH 10 ML SYR IV PRN (19:30)
--- NOTE | 2019-04-10 20:29 | Consultation-Cardiology ---
HPI-Cardiology Cardiology Consultation Date of Consultation 04/10/19 Date of Admission Time Seen by Provider: 20:25 Indication: Chest pain HPI 83 years old lady with history of atrial fibrillation, multiple admission for atrial fibrillation with rapid ventricular response, underwent electrical cardioversion yesterday and she was discharged home on her way home she started to have chest pain described as dull achiness on the left side of her chest continued to wax and wane until today she came to the emergency room and she was admitted, currently she is chest pain-free. No shortness of breath. No palpitation, having mild cough. Home Medications & Allergies Allergies: Coded Allergies: amiodarone (Verified Allergy, Unknown, 04/07/19) ciprofloxacin (Verified Allergy, Unknown, 01/02/19) codeine (Verified Allergy, Unknown, 01/02/19) lisinopril (Verified Allergy, Unknown, 01/02/19) sulfamethoxazole (Verified Allergy, Unknown, 01/02/19) trimethoprim (Verified Allergy, Unknown, 01/02/19) Home Medication List Reviewed: Yes [id number] Hx Patient Social History Marital Status: Employed/Student: retired Alcohol Use: Denies Use Recreational Drug Use: No Smoking Status: Unknown if Ever Smoked 2nd Hand Smoke Exposure: No Recent Foreign Travel: No Recent Infectious Disease Expo: No Recent Hopitalizations: No Immunizations Up To Date Date of Pneumonia Vaccine: Mar 08, 2017 Date of Influenza Vaccine: Apr 02, 2019 Past Medical History Discussed below Family Medical History Significant Family History: No Pertinent Family Hx, Cancer Family Medical Hx Noncontributory to her current condition Review of Systems-General Review of Systems Constitutional: see HPI; No chills, No diaphoresis, No dizziness, No fever, No malaise, No weakness, No weight gain, No weight loss, No other EENTM: see HPI, no symptoms reported Respiratory: see HPI, cough; No dyspnea on exertion, No hemoptysis, No orthopnea, No phlegm, No short of breath, No stridor, No wheezing, No other Cardiovascular: see HPI, chest pain; No edema, No Hx of Intervention; palpitations; No syncope, No vascular heart diseas, No other Gastrointestinal: no symptoms reported, see HPI Genitourinary: no symptoms reported, see HPI Musculoskeletal: see HPI, back pain, joint pain Skin: no symptoms reported Psychiatric/Neurological: No Symptoms Reported, See HPI Reviewed Test Results Reviewed Test Results Lab Laboratory Tests Test 04/10/19 16:03 Range/Units White Blood Count 7.0 4.3-11.0 10^3/uL Red Blood Count 4.80 4.35-5.85 10^6/uL Hemoglobin 14.3 11.5-16.0 G/DL Hematocrit 44 35-52 % Mean Corpuscular Volume 91 80-99 FL Mean Corpuscular Hemoglobin 30 25-34 PG Mean Corpuscular Hemoglobin Concent 33 32-36 G/DL Red Cell Distribution Width 15.3 H 10.0-14.5 % Platelet Count 229 130-400 10^3/uL Mean Platelet Volume 10.3 7.4-10.4 FL Neutrophils (%) (Auto) 71 42-75 % Lymphocytes (%) (Auto) 21 12-44 % Monocytes (%) (Auto) 6 0-12 % Eosinophils (%) (Auto) 1 0-10 % Basophils (%) (Auto) 0 0-10 % Neutrophils # (Auto) 4.9 1.8-7.8 X 10^3 Lymphocytes # (Auto) 1.5 1.0-4.0 X 10^3 Monocytes # (Auto) 0.4 0.0-1.0 X 10^3 Eosinophils # (Auto) 0.1 0.0-0.3 10^3/uL Basophils # (Auto) 0.0 0.0-0.1 10^3/uL Prothrombin Time 18.1 H 12.2-14.7 SEC INR Comment 1.4 0.8-1.4 Activated Partial Thromboplast Time 32 24-35 SEC Sodium Level 132 L 135-145 MMOL/L Potassium Level 4.3 3.6-5.0 MMOL/L Chloride Level 95 L 98-107 MMOL/L Carbon Dioxide Level 26 21-32 MMOL/L Anion Gap 11 5-14 MMOL/L Blood Urea Nitrogen 11 7-18 MG/DL Creatinine 0.61 0.60-1.30 MG/DL Estimat Glomerular Filtration Rate > 60 BUN/Creatinine Ratio 18 Glucose Level 221 H 70-105 MG/DL Calcium Level 9.7 8.5-10.1 MG/DL Corrected Calcium 9.9 8.5-10.1 MG/DL Magnesium Level 1.8 1.6-2.4 MG/DL Total Bilirubin 0.5 0.1-1.0 MG/DL Aspartate Amino Transf (AST/SGOT) 47 H 5-34 U/L Alanine Aminotransferase (ALT/SGPT) 21 0-55 U/L Alkaline Phosphatase 86 40-136 U/L Troponin I 0.88 *H <0.30 NG/ML Total Protein 7.7 6.4-8.2 GM/DL Albumin 3.7 3.2-4.5 GM/DL Lipase 16 8-78 U/L Physical Exam Physical Exam Vital Signs Vital Signs - First Documented Capillary Refill : Less Than 3 Seconds Height, Weight, BMI Height: 5'8.00" Weight: 135lbs. 4.0oz. [id number]; 21.69 BMI Method:Stated General Appearance: WD/WN, Cachetic Eyes: Bilateral Eye Normal Inspection, Bilateral Eye PERRL, Bilateral Eye EOMI HEENT: PERRL/EOMI Neck: Full Range of Motion, Normal Inspection, Non Tender, Supple, Carotid Bruit Respiratory: Lungs Clear, Normal Breath Sounds Cardiovascular: Regular Rate, Rhythm, No Edema, No Gallop, No JVD, No Murmur, Normal Peripheral Pulses, Tachycardia Gastrointestinal: Normal Bowel Sounds, No Organomegaly, No Pulsatile Mass, Non Tender, Soft Back: Normal Inspection, No CVA Tenderness, No Vertebral Tenderness Extremity: Normal Capillary Refill, Normal Inspection, Normal Range of Motion, Non Tender, No Calf Tenderness, No Pedal Edema Neurologic/Psychiatric: Alert, Depressed Affect Skin: Normal Color, Warm/Dry Lymphatic: No Adenopathy A/P-Cardiology Admission Diagnosis Chest pain Elevated troponin level Paroxysmal atrial fibrillation Palpitation Assessment/Plan Chest pain resembling angina, mild elevation of troponin level which could be secondary to the cardioversion, underlying coronary artery disease cannot be excluded. I will continue monitoring of troponin and monitor EKG and the trend of her troponin Paroxysmal atrial fibrillation, had multiple admission for tachycardia, underwent electrical cardioversion yesterday on April 09, [address] Gonzalez and still in sinus rhythm [id number] score of 5, yearly risk of stroke without oral anticoagulation is 6.7 percent. Continue on oral anticoagulation and monitor Hypertension, controlled currently on Cardizem drip, continue to monitor blood pressure Multiple herniated disks status post steroid injection in L4-L5. Done on March 10, 2019 Hypothyroidism, monitor thyroid Incidental finding right middle lobe pulmonary nodule noted on chest x-ray pre- admission. Followed and managed by primary care physician Diabetes mellitus, followed and managed by primary care physician Clinical Quality Measures AMI/AHF: ASA po Prior to arrival: ANEUDY Ross MD Apr 10, 2019 20:29
[2019-04-10] MEDS ORDERED: NON-FORMULARY MEDICATION 1 EA EA (Cephalexin 500 MG) PO SCH (21:00)
[2019-04-10] MEDS ORDERED: NON-FORMULARY MEDICATION 1 EA EA (Diltiazem HCl (Diltiazem 24Hr Cd) 120 MG) PO SCH (21:00)
[2019-04-10] MEDS: APIXABAN 5 MG (ELIQUIS) TABLET PO SCH (22:19)
[2019-04-10] MEDS: DILTIAZEM 120 MG (CARDIZEM CD) CAP PO SCH (22:19)
[2019-04-10] MEDS: CEPHALEXIN 250 MG (KEFLEX) CAP PO SCH (22:19)
[2019-04-10] MEDS: CATHETER FLUSH 10 ML SYR IV SCH (22:22)
[2019-04-10 23:41] VITALS: BP 93/55
[2019-04-11 03:55] VITALS: BP 95/56
[2019-04-11] MEDS: CATHETER FLUSH 10 ML SYR IV SCH ×3 (05:21→21:29)
[2019-04-11 06:09] LABS: HEMOGLOBIN 12.2 G/DL (11.5-16.0); MEAN PLATELET VOLUME 10.9 FL (7.4-10.4); RED CELL DISTRIBUTION WIDTH 15.3 % (10.0-14.5); WHITE BLOOD COUNT 6.6 10^3/uL (4.3-11.0)
[2019-04-11 06:28] LABS: ALANINE AMINOTRANSFERASE 20 U/L (0-55); ALBUMIN 3.1 GM/DL (3.2-4.5); ALKALINE PHOSPHATASE 75 U/L (40-136); BILIRUBIN,TOTAL 0.6 MG/DL (0.1-1.0); BUN/CREATININE RATIO 21; CALCIUM 8.9 MG/DL (8.5-10.1); CARBON DIOXIDE 22 MMOL/L (21-32); CHLORIDE 102 MMOL/L (98-107); CHOLESTEROL 103 MG/DL (< 200); CREATININE SERUM 0.67 MG/DL (0.60-1.30); GFR ESTIMATED > 60; GLUCOSE 203 MG/DL (70-105); HDL CHOLESTEROL 40 MG/DL (40-60); POTASSIUM 3.8 MMOL/L (3.6-5.0); SODIUM 133 MMOL/L (135-145); TOTAL PROTEIN 6.3 GM/DL (6.4-8.2); TRIGLYCERIDES 86 MG/DL (<150); VLDL CHOLESTEROL 17 MG/DL (5-40)
[2019-04-11 08:01] VITALS: BP 106/67
[2019-04-11] MEDS: APIXABAN 5 MG (ELIQUIS) TABLET PO SCH (08:05)
[2019-04-11] MEDS: CEPHALEXIN 250 MG (KEFLEX) CAP PO SCH ×2 (08:05→20:43)
[2019-04-11] MEDS: DILTIAZEM 120 MG (CARDIZEM CD) CAP PO SCH ×2 (08:05→20:43)
[2019-04-11] MEDS: ASPIRIN E.C. 81 MG (ECOTRIN) TAB PO SCH (08:05)
--- NOTE | 2019-04-11 09:21 | Cardiology Progress Note ---
Subjective Date Seen by Provider: Apr 11, 2019 Time Seen by Provider: 09:19 Subjective/Events-last exam Patient is laying down in bed, feeling better, denied any active chest pain Review of Systems General: No Chills, No Night Sweats, No Fatigue, No Malaise, No Appetite, No Other HEENT: No Head Aches, No Visual Changes, No Eye Pain, No Ear Pain, No Dysphasia, No Sinus Congestion, No Post Nasal Drip, No Sore Throat, No Other Pulmonary: No Dyspnea, No Cough, No Pleuritic Chest Pain, No Other Cardiovascular: No: Chest Pain, Palpitations, Orthopnea, Paroxysmal Noc. Dyspnea, Edema, Lt Headedness, Other Objective-Cardiology Exam Last Set of Vital Signs Vital Signs 04/11/19 08:01 Temp 36.7 Pulse 87 Resp 26 B/P (MAP) 106/67 (80) Pulse Ox 97 O2 Delivery Nasal Cannula O2 Flow Rate 2.00 Capillary Refill : Less Than 3 SecondsLess Than 3 Seconds I&O Intake and Output 04/11/19 00:00 Intake Total 340 ml Output Total 100 ml Balance 240 ml Intake Oral 340 ml Output Urine Total 100 ml Daily Weight Change No General: Alert, Oriented X3, Cooperative HEENT: Atraumatic, PERRLA Neck: Supple, No JVD, No Thyromegaly Lungs: Clear to Auscultation, Normal Air Movement Heart: Regular Rate, Normal S1, Normal S2, No Murmurs Abdomen: Normal Bowel Sounds, Soft, No Tenderness, No Hepatosplenomegaly, No Masses Extremities: No Clubbing, No Cyanosis, No Edema, Normal Pulses, No Tenderness/Swelling Skin: No Rashes, No Breakdown, No Significant Lesion Neuro: Normal Gait, Normal Speech, Strength at 5/5 X4 Ext, Normal Tone, Sensation Intact Psych/Mental Status: Mental Status NL, Mood NL Results Lab Laboratory Tests 04/10/19 16:03 04/11/19 05:30 A/P-Cardiology Admission Diagnosis Chest pain Elevated troponin level Paroxysmal atrial fibrillation Palpitation Assessment/Plan Chest pain resembling angina, mild elevation of troponin level which could be secondary to the cardioversion, EKG this morning showed T-wave inversion in the anterior lateral leads. I am planning to proceed with cardiac catheterization, she had Eliquis given this morning and she is not having active chest pain, I will hold Eliquis and planning to proceed with a cardiac catheterization tomorrow. Paroxysmal atrial fibrillation, had multiple admission for tachycardia, underwent electrical cardioversion yesterday on April 09, [address] Gonzalez and still in sinus rhythm [id number] score of 5, yearly risk of stroke without oral anticoagulation is 6.7 percent. Continue on oral anticoagulation and monitor Hypertension, better controlled. Continue to monitor blood pressure Multiple herniated disks status post steroid injection in L4-L5. Done on March 10, 2019 Hypothyroidism, monitor thyroid Incidental finding right middle lobe pulmonary nodule noted on chest x-ray pre- admission. Followed and managed by primary care physician Diabetes mellitus, followed and managed by primary care physician Clinical Quality Measures AMI/AHF: ASA po Prior to arrival: No DVT/VTE Risk/Contraindication: Risk Factor Score Per Nursin RFS Level Per Nursing on Admit: 3=High ANEUDY DACOSTA MD Apr 11, 2019 09:20
[2019-04-11] MEDS: NS IV 1000 ML 1,000 ML IV SCH ×2 (11:02→20:48)
[2019-04-11 12:00] VITALS: BP 100/64
--- NOTE | 2019-04-11 12:16 | Progress Note - Hospitalist ---
Subjective HPI/CC On Admission Date Seen by Provider: Apr 11, 2019 Time Seen by Provider: 11:15 Objective Exam Vital Signs Vital Signs Date Time Temp Pulse Resp B/P (MAP) Pulse Ox O2 Delivery O2 Flow Rate FiO2 04/11/19 19:09 37.0 108 18 108/70 (83) 96 Nasal Cannula 2.00 Capillary Refill : Less Than 3 SecondsLess Than 3 Seconds Results/Procedures Lab Laboratory Tests 04/11/19 05:30 Patient resulted labs reviewed. Clinical Quality Measures AMI/AHF: ASA po Prior to arrival: No DVT/VTE Risk/Contraindication: Risk Factor Score Per Nursin RFS Level Per Nursing on Admit: 3=High HIUE BECERRA DO Apr 11, 2019 12:16
[2019-04-11 15:43] VITALS: BP 102/61
[2019-04-11 19:09] VITALS: BP 108/70
[2019-04-11] MEDS ORDERED: ONDANSETRON 4 MG/2 ML (SDV) Z0FRAN IVP PRN (20:30)
--- NOTE | 2019-04-11 20:30 | NUR ---
2000 SHAYNA TEST EQUIPMENT MECHANIC IN ICU CALLED THIS NURSE PAYROLL MASTER THAT PT WAS IN AFIB AND PREVIOUSLY HAD BEEN IN SR. DR DACOSTA NOTIFIED AT 2025 AND REPORTED SYMPTOMS, HE ORDERED TO CONTINUE TO MONITOR. PT ALSO C/O NAUSEA, DR BECERRA NOTIFIED VIA TEXT AND SHE ORDERED 8 MG ZOFRAN IV Q6H PRN NAUSEA.
--- NOTE | 2019-04-11 20:32 | History & Physical-Hospitalist ---
History of Present Illness HPI/Chief Complaint Chief complaint: Chest pain History of present illness: This is an 83-year-old white female clinic patient of in [place] with a past medical history of new onset atrial fibrillation status post cardioversion on by Dr. Garcia who presented to the [place] ER the day after with complaints of chest pain. She does have significant dementia and very hard of hearing so it is difficult to ascertain reliable details but her daughter who she lives with reports that she began having the chest pain that continued to the severity of reporting to the ER found to have mild elevation of troponin so Dr. Bojorquez will be performing a cardiac catheterization tomorrow morning. I will be holding most of her medications because some can have conflict with catheterization contrast such as metformin. At this current time patient denies any pain she is eating a good breakfast and having no difficulty ambulating. She does not use oxygen at home and does not have sleep apnea. Source: patient, family, RN/MD, old records Exam Limitations: clinical condition (ANDREAFSKI + dementia) Date Seen 04/11/19 Time Seen by a Provider: 11:30 Attending Physician Barbara Lackey Pankaj K MD Referring Physician Date of Admission Apr 10, 2019 at 17:00 Home Medications & Allergies Home Medications Reviewed patient Home Medication Reconciliation performed by pharmacy medication reconciliations parking enforcement technician and/or nursing. Patients Allergies have been reviewed. Allergies Allergies Coded Allergies amiodarone (Verified Allergy, Unknown, 04/07/19) ciprofloxacin (Verified Allergy, Unknown, 01/02/19) codeine (Verified Allergy, Unknown, 01/02/19) lisinopril (Verified Allergy, Unknown, 01/02/19) sulfamethoxazole (Verified Allergy, Unknown, 01/02/19) trimethoprim (Verified Allergy, Unknown, 01/02/19) Past [id number]-Kyxjdu Hx Past Med/Social Hx: Reviewed Nursing Past Med/Soc Hx, Reviewed and Corrections made Patient Social History Marrital Status: Employed/Student: retired Alcohol Use: Denies Use Recreational Drug Use: No Smoking Status: Unknown if Ever Smoked 2nd Hand Smoke Exposure: No Recent Foreign Travel: No Contact w/other who traveled: No Recent Hopitalizations: No Recent Infectious Disease Expo: No Immunizations Up To Date Date of Pneumonia Vaccine: Mar 08, 2017 Date of Influenza Vaccine: Apr 02, 2019 Seasonal Allergies Seasonal Allergies: No Past Medical History Surgeries: Hysterectomy Cardiac: Atrial Fibrillation, Hypertension Genitourinary: Bladder Infection Endocrine: Diabetes, Non-Insulin dep History of Blood Disorders: No Family History No Pertinent Family Hx, Cancer Review of Systems Constitutional: see HPI Respiratory: dyspnea on exertion Cardiovascular: chest pain Physical Exam Physical Exam Vital Signs Vital Signs - First Documented Capillary Refill : Less Than 3 SecondsLess Than 3 Seconds Height, Weight, BMI Height: 5'8.00" Weight: 135lbs. 4.0oz. [id number]; 21.69 BMI Method:Stated General Appearance: No Apparent Distress, WD/WN, Chronically ill Eyes: Right Eye Normal Inspection, Right Eye PERRL HEENT: PERRL/EOMI, Normal ENT Inspection, Pharynx Normal, Moist Mucous Membranes Neck: Full Range of Motion, Normal Inspection, Non Tender Respiratory: Chest Non Tender, Lungs Clear, Normal Breath Sounds, No Accessory Muscle Use, No Respiratory Distress Cardiovascular: Regular Rate, Rhythm, No Edema, No Gallop, No JVD, No Murmur, Normal Peripheral Pulses Gastrointestinal: Normal Bowel Sounds, No Organomegaly, No Pulsatile Mass, Non Tender, Soft Back: Normal Inspection, No CVA Tenderness, No Vertebral Tenderness Extremity: Normal Capillary Refill, Normal Inspection, Normal Range of Motion, Non Tender, No Calf Tenderness, No Pedal Edema Neurologic/Psychiatric: Alert, No Motor/Sensory Deficits, Normal Mood/Affect, flat surfacer II-XII Norm as Tested, Disoriented Skin: Normal Color, Warm/Dry Lymphatic: No Adenopathy Results Results/Procedures Labs Laboratory Tests 04/10/19 16:03 04/11/19 05:30 Patient resulted labs reviewed. Assessment/Plan Admission Diagnosis Assessment: Chest pain s/p cardioversion by Dr Garcia Elevated troponin Dementia Presbycusis Frail status Plan: Cath in am Monitor closely Admission Status: Observation Diagnosis/Problems Diagnosis/Problems (1) Chest pain Status: Acute Qualifiers: Chest pain type: unspecified Qualified Codes: R07.9 - Chest pain, unspecified (2) Elevated troponin Status: Acute (3) Diabetes Status: Chronic Qualifiers: Diabetes mellitus type: type 2 Diabetes mellitus jail insulin use: without jail use Diabetes mellitus complication status: with other specified complication Qualified Codes: E11.69 - Type 2 diabetes mellitus with other specified complication (4) Hypertension Status: Acute Qualifiers: Hypertension type: essential hypertension Qualified Codes: I10 - Essential (primary) hypertension (5) Atrial fibrillation with rapid ventricular response Status: Resolved Resolution Date/Time: 04/11/19 @ 20:30 (6) Dementia Status: Chronic (7) Presbycusis of both ears Status: Chronic Clinical Quality Measures AMI/AHF: ASA po Prior to arrival: No DVT/VTE Risk/Contraindication: Risk Factor Score Per Nursin RFS Level Per Nursing on Admit: 3=High BARBARA LACKEY DO Apr 11, 2019 20:32
[2019-04-11] MEDS ORDERED: diphenhydrAMINE 25 MG TAB (BENADRYL) PO PRN (20:45)
[2019-04-11] MEDS ORDERED: HYDROcodone/APAP 5 MG/325 MG (LORTAB) TAB PO PRN (20:45)
[2019-04-11] MEDS ORDERED: LOPERAMIDE 2 MG (IMODIUM) TABLET PO PRN (20:45)
[2019-04-11] MEDS ORDERED: fentaNYL INJECTION 100 MCG/2 ML AMP IVP PRN (20:45)
[2019-04-11] MEDS ORDERED: CALCIUM CARBONATE 500 MG (TUMS) TAB.CHEW PO PRN (20:45)
[2019-04-11] MEDS ORDERED: ACETAMINOPHEN 500 MG TAB (TYLENOL) PO PRN (20:45)
[2019-04-11] MEDS ORDERED: MELATONIN 3 MG TABLET PO PRN (20:45)
[2019-04-11] MEDS ORDERED: DOCUSATE SODIUM 100 MG (COLACE) CAP PO PRN (20:45)
[2019-04-11] MEDS: SENNA W/DOCUSATE (SENOKOT S) TABLET PO SCH (21:28)
[2019-04-11] MEDS: inSUlin ASPART (NovoLOG) 1 UNIT/0.01 ML (CHARGE PER UNIT) SC SCH (21:28)
[2019-04-11 23:45] VITALS: BP 96/60
[2019-04-12 04:00] VITALS: BP 111/76
[2019-04-12 04:55] LABS: HEMOGLOBIN 11.7 G/DL (11.5-16.0); MEAN PLATELET VOLUME 10.9 FL (7.4-10.4); RED CELL DISTRIBUTION WIDTH 15.8 % (10.0-14.5); WHITE BLOOD COUNT 7.8 10^3/uL (4.3-11.0)
[2019-04-12 05:02] LABS: INR 1.5 (0.8-1.4); PROTHROMBIN TIME PATIENT 18.3 SEC (12.2-14.7)
[2019-04-12 05:22] LABS: BUN/CREATININE RATIO 22; CALCIUM 8.7 MG/DL (8.5-10.1); CARBON DIOXIDE 21 MMOL/L (21-32); CHLORIDE 103 MMOL/L (98-107); CREATININE SERUM 0.74 MG/DL (0.60-1.30); GFR ESTIMATED > 60; GLUCOSE 176 MG/DL (70-105); MAGNESIUM 1.7 MG/DL (1.6-2.4); POTASSIUM 3.9 MMOL/L (3.6-5.0); SODIUM 133 MMOL/L (135-145)
[2019-04-12] MEDS: CATHETER FLUSH 10 ML SYR IV SCH (05:45)
[2019-04-12] MEDS: inSUlin ASPART (NovoLOG) 1 UNIT/0.01 ML (CHARGE PER UNIT) SC SCH (05:46)
[2019-04-12] MEDS: NS IV 1000 ML 1,000 ML IV SCH (06:47)
--- NOTE | 2019-04-12 06:58 | Cardiology Progress Note ---
Subjective Date Seen by Provider: Apr 12, 2019 Time Seen by Provider: 06:57 Subjective/Events-last exam Patient is laying down in bed, complaining of right shoulder pain and neck pain. No palpitation, back in atrial fibrillation Review of Systems General: No Chills, No Night Sweats, No Fatigue, No Malaise, No Appetite, No Other HEENT: No Head Aches, No Visual Changes, No Eye Pain, No Ear Pain, No Dysphasia, No Sinus Congestion, No Post Nasal Drip, No Sore Throat, No Other Pulmonary: No Dyspnea, No Cough, No Pleuritic Chest Pain, No Other Cardiovascular: No: Chest Pain, Palpitations, Orthopnea, Paroxysmal Noc. Dyspnea, Edema, Lt Headedness, Other Objective-Cardiology Exam Last Set of Vital Signs Vital Signs 04/12/19 08:00 Temp 36.6 Pulse 122 Resp 18 B/P (MAP) 121/70 (87) Pulse Ox 92 O2 Delivery Nasal Cannula O2 Flow Rate 2.00 Capillary Refill : Less Than 3 SecondsLess Than 3 Seconds I&O Intake and Output 04/12/19 00:00 Intake Total 910 ml Output Total 175 ml Balance 735 ml Intake Oral 910 ml Output Urine Total 175 ml # Voids 3 # Bowel Movements 2 General: Alert, Oriented X3, Cooperative HEENT: Atraumatic, PERRLA Neck: Supple, No JVD, No Thyromegaly Lungs: Clear to Auscultation, Normal Air Movement Heart: Normal S1, Normal S2, No Murmurs, Other (Irregular) Abdomen: Normal Bowel Sounds, Soft, No Tenderness, No Hepatosplenomegaly, No Masses Extremities: No Clubbing, No Cyanosis, No Edema, Normal Pulses, No Tenderness/Swelling Skin: No Rashes, No Breakdown, No Significant Lesion Neuro: Normal Gait, Normal Speech, Strength at 5/5 X4 Ext, Normal Tone, Sensation Intact Psych/Mental Status: Mental Status NL, Mood NL Results Lab Laboratory Tests 04/12/19 04:20 A/P-Cardiology Admission Diagnosis Chest pain Elevated troponin level Paroxysmal atrial fibrillation Palpitation Assessment/Plan Chest pain resembling angina, mild elevation of troponin level which could be secondary to the cardioversion, EKG this morning showed T-wave inversion in the anterior lateral leads. I am planning to proceed with cardiac catheterization possible PTCA today Right shoulder and neck pain. Continue to monitor Paroxysmal atrial fibrillation, had multiple admission for tachycardia, underwent electrical cardioversion yesterday on April 09, [address] Gonzalez, went back to atrial fibrillation last night [id number] score of 5, yearly risk of stroke without oral anticoagulation is 6.7 percent. Currently Eliquis is on hold since yesterday morning for cardiac catheterization today Hypertension, better controlled. Continue to monitor blood pressure Multiple herniated disks status post steroid injection in L4-L5. Done on March 10, 2019 Hypothyroidism, monitor thyroid Incidental finding right middle lobe pulmonary nodule noted on chest x-ray pre- admission. Followed and managed by primary care physician Diabetes mellitus, followed and managed by primary care physician Addendum on April 12, 2019 at 951 a.m. Patient underwent cardiac catheterization showing multivessel coronary artery disease, heavily calcified arteries with severe stenosis at the ostium of the left main coronary artery, severe stenosis at the proximal LAD, severe stenosis at the right PDA with moderate disease at the circumflex and mid right coronary artery, dilated left ventricle with anterior wall and apical hypokinesia estimated ejection fraction 35 percent. Arrangement will be made to transfer to [facility] [place] for CABG Clinical Quality Measures AMI/AHF: ASA po Prior to arrival: No DVT/VTE Risk/Contraindication: Risk Factor Score Per Nursin RFS Level Per Nursing on Admit: 3=High ANEUDY DACOSTA MD Apr 12, 2019 06:58
--- NOTE | 2019-04-12 06:59 | Cardiac Procedure Note-CS/ASA ---
Pre-Procedure Note Pre-Op Procedure Note H&P Reviewed The H&P was reviewed, patient examined and no changes noted. Date H&P Reviewed: Apr 12, 2019 Time H&P Reviewed: 06:58 Conscious Sedation Pre-Proced Time 06:59 ASA Score 3 For ASA 3 and 4: Consider anesthesia and medical clearance. Also, for patients with a history of failed moderate sedation consider anesthesia. Airway Lungs Heart ASA score ASA 1: a normal healthy patient ASA 2: a patient with a mild systemic disease (mid diabetes, controlled hypertension, obesity x ASA 3: a patient with a severe systemic disease that limits activity (angina, COPD, prior Myocardial infarction) ASA 4: a patient with an incapacitating disease that is a constant threat to life (CHF, renal failure) ASA 5: a moribund patient not expected to survive 24 hrs. (ruptured aneurysm) ASA 6: a declared brain- patient whose organs are being harvested. For emergent operations, add the letter E after the classification Mallampati Classification Grade 3 Sedation Plan Analgesia, Amnesia, Plan communicated to team members, Discussed options with patient/fam, Discussed risks with patient/fam The patient is an appropriate candidate to undergo the planned procedure, sedation, and anesthesia. The patient immediately re-assessed prior to indication. ANEUDY DACOSTA MD Apr 12, 2019 06:59
[2019-04-12] MEDS ORDERED: NS IV 1000 ML 1,000 ML IV SCH ×2 (07:00→09:43)
[2019-04-12] MEDS: DILTIAZEM 120 MG (CARDIZEM CD) CAP PO SCH (07:40)
[2019-04-12] MEDS: SENNA W/DOCUSATE (SENOKOT S) TABLET PO SCH (07:40)
[2019-04-12] MEDS: ASPIRIN E.C. 81 MG (ECOTRIN) TAB PO SCH (07:40)
[2019-04-12] MEDS: CEPHALEXIN 250 MG (KEFLEX) CAP PO SCH (07:57)
[2019-04-12 08:00] VITALS: BP 121/70
[2019-04-12] MEDS ORDERED: MIDAZOLAM 5 MG/5 ML (VERSED) VIAL ONE (08:36)
[2019-04-12] MEDS ORDERED: NS IV 1000 ML 0 ML ONE (08:36)
[2019-04-12] MEDS ORDERED: HEParin (CATH LAB) 2,000 ML IV ONE (08:36)
[2019-04-12] MEDS ORDERED: LIDOCAINE 1% INJ 20 ML 20 ML VIAL ONE (08:36)
[2019-04-12] MEDS ORDERED: fentaNYL INJECTION 100 MCG/2 ML AMP ONE (08:36)
--- NOTE | 2019-04-12 08:58 | NUR ---
PT LEAVING FLOOR IN ROUTE TO EXTRUDER OPERATOR HORIZONTAL FOR PROCEDURE VIA STECHER. ACCOMPANIED BY EXTRUDER OPERATOR HORIZONTAL STAFF AND FAMILY. THIS RN WILL AWAIT PT RETURN OR NEW ORDERS.
[2019-04-12] MEDS ORDERED: PATIENT MAY USE OWN MEDS, ALL PO SCH (09:45)
--- NOTE | 2019-04-12 09:51 | Cardiac Cath Report ---
Cardiac Cath Report Physician (s)/[employer] Special Education Teacher (s) Physician ANEUDY DACOSTA MD Pre-Procedure Diagnosis Pre-Procedure Diagnosis: Non-ST elevation myocardial infarction Post-Procedure Note Procedure Start Date: Apr 12, 2019 Name of Procedure: Left heart catheterization Left ventriculogram Aortic arch angiogram Findings/Procedure Note PROCEDURE NOTE: 83-year-old lady admitted with acute chest pain, she was discharged recently from the hospital after electrical cardioversion, had elevation in troponin and EKG changes. Decided to proceed with cardiac catheterization, I held Eliquis for 24 hours then proceeded with the procedure After explaining the procedure to the patient, all pros and cons were explained, all questions were answered. The patient signed the consent and then she was placed on the cardiac catheterization laboratory. Groin was prepped SL fashion local anesthesia was used. Sheath placed in the right femoral artery. Mason right and left catheter were used to access the coronary system. Pigtail was used to access the left ventricular cavity. Left ventriculogram was done Aortic arch angiogram was done At the end of the procedure the sheath was removed. Closure device was used FINDINGS: Hemodynamics LV 100/24, end-diastolic pressure of 24 Aorta 98/66 mean of 56 ANATOMY: Left Main has severe ostial stenosis calcified artery Left Anterior Descending is heavily calcified artery with severe proximal stenosis moderate mid artery stenosis Left Circumflex has jtxa-ba-poirifog disease nonobstructive disease Right Coronory Artery has dgzh-gd-dnfmwjxo disease, the right PDA has severe stenosis very small artery LV Gram is dilated with anterior wall and apical hypokinesia to akinesia estimated ejection fraction 35 percent Aorta angiogram was done with aortic arch angiogram showing calcification the aortic arch, no dissection or aneurysm, calcification at the origin of the in nominate artery (carotid artery and left subclavian artery. CONCLUSION: 1. Severe ostial left main coronary artery stenosis, heavily calcified artery 2. Heavily calcified LAD with severe proximal to mid LAD stenosis, moderate distal stenosis 3. Mild to moderate disease in the circumflex artery and right coronary artery 4. Severe right PDA stenosis, very small artery 5. Dilated left ventricle with apical akinesia anterior wall hypokinesia estimated ejection fraction 35 percent 6. Hypertensive changes with calcification in the aortic arch, no significant disease in the great vessels of the neck DISCUSSION AND RECOMMENDATION: Arrangement will be made for transfer for evaluation for bypass surgery Anesthesia Type: Conscious Sedation Estimated blood loss (mL): 15 ml Contrast Amount: 81 ml Total Radiation Dose: 588 mGy Post-Procedure Diagnosis Post-operative diagnosis: Non-ST elevation myocardial infarction Coronary artery disease Congestive heart failure, chronic left ventricular systolic dysfunction, ischemic cardiomyopathy Atrial fibrillation (1) Chest pain Qualifiers: Qualified Codes: R07.9 - Chest pain, unspecified (2) Elevated troponin (3) Diabetes Qualifiers: Qualified Codes: E11.69 - Type 2 diabetes mellitus with other specified complication (4) Hypertension Qualifiers: Qualified Codes: I10 - Essential (primary) hypertension (5) Atrial fibrillation with rapid ventricular response (6) Dementia (7) Presbycusis of both ears ANEUDY DACOSTA MD Apr 12, 2019 09:50
--- NOTE | 2019-04-12 09:57 | NUR ---
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 monitors placed on pt and hr is 130-140's bp is systolic in 80's. site is dry and intact. ems notified of need to transport.
--- NOTE | 2019-04-12 09:57 | Discharge Inst-Post CATH ---
Discharge Inst-CATH/EP Problems Reviewed?: Yes Post Cardiac Cath/EP D/C Inst Follow Up/Plan Appointment with Dr. Garcia's office in 2-4 weeks <b>CARDIAC CATH/EP PROCEDURE DISCHARGE INSTRUCTIONS</b> ACTIVITY * Go Home directly and rest. * Limit activity of the leg (or wrist if it was used) for 7 days including aerobics, swimming, jogging, bicycling, etc. * Restrict stair-climbing for 7 days if possible, if not, climb up with your non-cath leg, then bring together on the same step. * Avoid lifting, pushing, pulling or excessive movement of the affected extremity for 7 days. * Customary sexual activity may be resumed after 2 days-use caution not to use a position that strains or causes pain to the affected extremity. * No driving for 24 hours. * NO SMOKING. * Avoid straining for bowel movements for 7 days. * Gentle walking on level ground is allowed. * Returning to work will depend on the type of procedure and the results. Your doctor will discuss this with you. CALL YOUR DOCTOR FOR ANY OF THE FOLLOWING: *If bleeding from the puncture site occurs- Apply gentle pressure to site with clean cloth and call your doctor or EMS. * If a knot or lump forms under the skin, increases in size, or causes pain. * If bruising appears to be worsening or moving further down your leg instead of disappearing. * Temperature above 101 F. CARE OF YOUR GROIN INCISION; * Bruising or purple discoloration of the skin near the puncture site is common. * You may shower only, no bathtub bathing for 5 days. Be careful to avoid slipping as your leg may feel stiff. * If a closure device was used on your femoral artery, please see the attached guide regarding care of the device and your leg. * Leave dressing on FOR 24 hours. CARE OF YOUR WRIST INCISION; * Bruising or purple discoloration of the skin near the puncture site is common. * You may shower. * DO NOT submerge wrist. * Leave dressing on FOR 24 hours. ANEUDY GARCIA MD Apr 12, 2019 09:57
--- NOTE | 2019-04-12 10:05 | NUR ---
REPORT GIVEN TO [facility].
--- NOTE | 2019-04-12 10:18 | NUR ---
pt leaving via [facility] ems via stretcher.
--- NOTE | 2019-04-12 10:22 | NUR ---
attempted to call report to [facility] and was told they would call back.
--- NOTE | 2019-04-12 11:20 | NUR ---
this nurse attempted to call report to [facility] and was told they would call back.
--- NOTE | 2019-04-12 12:32 | Discharge Summary ---
Discharge Summary Hospital Course Was the Problem List Reviewed?: Yes Problems/Dx: (1) Chest pain Status: Acute Qualifiers: Qualified Codes: R07.9 - Chest pain, unspecified (2) Elevated troponin Status: Acute (3) Diabetes Status: Chronic Qualifiers: Qualified Codes: E11.69 - Type 2 diabetes mellitus with other specified complication (4) Hypertension Status: Acute Qualifiers: Qualified Codes: I10 - Essential (primary) hypertension (5) Atrial fibrillation with rapid ventricular response Status: Resolved (6) Dementia Status: Chronic (7) Presbycusis of both ears Status: Chronic Hospital Course Date of Admission: Apr 10, 2019 at 17:00 Admission Diagnosis : Family Physician/Provider: Faustino Estrada MD Date of Discharge: 04/12/19 Discharge Diagnosis: Left main CAD on cath with NSTEMI needs CABG, Dementia, HTN Hospital Course: Hospital course: Patient had a short hospital course she was admitted on Saturday afternoon to [facility] and transferred to [facility] due to slightly elevated troponin with chest pain after cardioversion the day before. She has dementia and very hard of hearing so difficult to ascertain exact details and whether or not they were reliable. She was taken to cardiac catheterization by Dr. Bojorquez which revealed severe left main disease in need of bypass surgery so she was sent to higher level of care for cardiothoracic surgery to manage that. Labs and Pending Lab Test: Laboratory Tests 04/11/19 21:11: Glucometer 259H 04/12/19 04:20: White Blood Count 7.8, Red Blood Count 4.01L, Hemoglobin 11.7, Hematocrit 36, Mean Corpuscular Volume 90, Mean Corpuscular Hemoglobin 29, Mean Corpuscular Hemoglobin Concent 33, Red Cell Distribution Width 15.8H, Platelet Count 214, Mean Platelet Volume 10.9H, Prothrombin Time 18.3H, INR Comment 1.5H, Activated Partial Thromboplast Time 37H, Sodium Level 133L, Potassium Level 3.9, Chloride Level 103, Carbon Dioxide Level 21, Anion Gap 9, Blood Urea Nitrogen 16, Creatinine 0.74, Estimat Glomerular Filtration Rate > 60, BUN/Creatinine Ratio 22, Glucose Level 176H, Calcium Level 8.7, Magnesium Level 1.7 Home Meds Active Cephalexin 500 Mg Capsule 500 Mg PO BID Reported Diltiazem 24Hr Cd (Diltiazem HCl) 120 Mg Cap.er.24h 120 Mg PO BID Eliquis (Apixaban) 5 Mg Tablet 5 Mg PO BID Glimepiride 4 Mg Tablet 2 Mg PO DAILY PRN Cyanocobalamin Injection (Cyanocobalamin) 1,000 Mcg/Ml Inj 1,000 Mcg IM MONTHLY Metformin HCl 1,000 Mg Tablet 1,000 Mg PO HS Assessment/Pt Instructions Tx to CABG Discharge Planning: <30 minutes discharge planning Discharge Instructions Discharge Diet: Other Diet Discharge Physical Examination Vital Signs Vital Signs Date Time Temp Pulse Resp B/P (MAP) Pulse Ox O2 Delivery O2 Flow Rate FiO2 04/12/19 08:00 36.6 122 18 121/70 (87) 92 Nasal Cannula 2.00 Allergies: Coded Allergies: amiodarone (Verified Allergy, Unknown, 04/07/19) ciprofloxacin (Verified Allergy, Unknown, 01/02/19) codeine (Verified Allergy, Unknown, 01/02/19) lisinopril (Verified Allergy, Unknown, 01/02/19) sulfamethoxazole (Verified Allergy, Unknown, 01/02/19) trimethoprim (Verified Allergy, Unknown, 01/02/19) Discharge Summary Date of Admission Apr 10, 2019 at 17:00 Date of Discharge Apr 12, 2019 at 10:18 Discharge Date: Apr 12, 2019 Admission Diagnosis Assessment: Chest pain s/p cardioversion by Dr Garcia Elevated troponin Dementia Presbycusis Frail status Plan: Cath in am Monitor closely Discharge Diagnosis (1) Chest pain Status: Acute Qualifiers: Qualified Codes: R07.9 - Chest pain, unspecified (2) Elevated troponin Status: Acute (3) Diabetes Status: Chronic Qualifiers: Qualified Codes: E11.69 - Type 2 diabetes mellitus with other specified complication (4) Hypertension Status: Acute Qualifiers: Qualified Codes: I10 - Essential (primary) hypertension (5) Atrial fibrillation with rapid ventricular response Status: Resolved (6) Dementia Status: Chronic (7) Presbycusis of both ears Status: Chronic Clinical Quality Measures AMI/AHF: ASA po Prior to arrival: No DVT/VTE Risk/Contraindication: Risk Factor Score Per Nursin RFS Level Per Nursing on Admit: 3=High HIEU BECERRA DO Apr 12, 2019 12:32
[2019-04-12] MEDS ORDERED: meTOprolol TARTRATE 25 MG (LOPRESSOR) TABLET PO SCH (21:00)
[2019-04-13] MEDS ORDERED: LOSARTAN 25 MG (COZAAR) TAB PO SCH (09:00)
== END 2019-04-12 10:18 | disposition short-term general hospital (02) ==
LOC: EDUNIT# 15:31 → ER FS 15:32 → UNDOADMOB 17:00 → 4TH 17:00 → CATH 19:05 → 4TH 19:05 → ICU 04-12 10:10 → 4TH 04-12 10:10 → ICU 04-12 10:10 → UNDODISOB 04-12 10:18 → CATH 04-12 10:18
PROVIDERS: ATTEND Internal Medicine
DX: I25.10 Atherosclerotic heart disease of native coronary artery without angina pectoris (principal); I21.4 Non-ST elevation (NSTEMI) myocardial infarction; I11.0 Hypertensive heart disease with heart failure; I50.22 Chronic systolic (congestive) heart failure; I25.5 Ischemic cardiomyopathy; I48.91 Unspecified atrial fibrillation; E11.9 Type 2 diabetes mellitus without complications; F03.90 Unspecified dementia, unspecified severity, without behavioral disturbance, psychotic disturbance, mood disturbance, and anxiety; H91.13 Presbycusis, bilateral; E03.9 Hypothyroidism, unspecified; Z88.5 Allergy status to narcotic agent; Z88.1 Allergy status to other antibiotic agents; Z88.2 Allergy status to sulfonamides; Z79.01 Long term (current) use of anticoagulants; Z79.899 Other long term (current) drug therapy; Z90.710 Acquired absence of both cervix and uterus
CPT/HCPCS: 36221; 36415; 71045; 80048; 80053; 80061; 82962; 83690; 83735; 84484; 85025; 85027; 85610; 85730; 93005; 93041; 93458; 96372; 96374; G0378